=== PATIENT | female | born 1990 | race Caucasian/White ===

== ENCOUNTER 2020-04-05 07:05 | Outpatient (NON) | payer OTHER, SELFPAY ==
[2020-04-05 18:29] LABS: SARS-CoV-2 RNA PCR Negative
== END 2020-04-05 07:06 ==
PROVIDERS: PCP Physician Assistant; Visit Provider Physician Assistant
DX: Z20.828 Contact with and (suspected) exposure to other viral communicable diseases (principal); R11.0 Nausea
CPT/HCPCS: 87635; C9803; U0003

== ENCOUNTER 2021-10-11 14:28 | Outpatient (CLI) | payer OTHER, SELFPAY ==
--- NOTE | ~2021-10-11 | XR_ITS ---
XR abdomen/kub 1V 10/11/2021 14:44 INDICATION: Right flank pain TECHNIQUE: KUB COMPARISON: No prior studies for comparison. FINDINGS: Bowel gas pattern is normal. There is no evidence of free air, mass, organomegaly, ascites or obstruction. There is a possible right renal stone at the L2 level, obscured by bowel content.. The bones appear intact. There are pelvic phleboliths. IMPRESSION: 1: Possible right nephrolithiasis although evaluation limited by overlying bowel content. Reviewed, dictated and finalized at location B. IMPRESSION: 1: Possible right nephrolithiasis although evaluation limited by overlying kevan l content.
== END 2021-10-11 14:29 | disposition home or self-care (01) ==
LOC: ANHIMG 14:32
PROVIDERS: PCP Physician Assistant; Visit Provider Physician Assistant
DX: R10.9 Unspecified abdominal pain (principal)
CPT/HCPCS: 74018

== ENCOUNTER 2021-10-25 13:01 | Outpatient (CLI) | payer OTHER, SELFPAY ==
--- NOTE | ~2021-10-25 | CT_ITS ---
EXAMINATION: CT abdomen pelvis wo con DATE: 10/25/2021 13:25 INDICATION: Left flank pain TECHNIQUE: Computed tomography (CT) of the abdomen and pelvis was performed without intravenous contr ast. The dose-length product (DLP) was 227.24 mGy-cm. Automated exposure control and iterative recons truction technique were employed. COMPARISON: 12/24/2018 FINDINGS: The lung bases are clear. The heart size is normal. The liver, spleen, pancreas, and adrena l glands are normal. The gallbladder is surgically absent. The kidneys are unremarkable. No stones ar e identified in the kidneys, ureters, or bladder. There is no hydronephrosis or hydroureter. No patho logically enlarged abdominal or pelvic lymph nodes are identified. There is no free intraperitoneal g as or evidence of bowel obstruction. There is a 3.2 cm cyst of the left adnexa. A large volume of col onic stool is present. IMPRESSION: 1. No CT correlate for the patient's symptoms. No urolithiasis identified. Reviewed, dictated and finalized at location F.
== END 2021-10-25 13:02 | disposition home or self-care (01) ==
PROVIDERS: PCP Physician Assistant; Visit Provider Physician Assistant
DX: N20.0 Calculus of kidney (principal)
CPT/HCPCS: 74176

== ENCOUNTER 2023-06-10 00:26 | Day surgery (SDC) | payer OTHER, SELFPAY ==
[2023-05-12 15:06] VITALS: BMI 25.2
--- NOTE | 2023-06-08 12:05 | SUR.PREOP ---
Patient called regarding upcoming procedure. Reviewed preop instructions, appointment times, and procedure prep.
--- NOTE | 2023-06-09 16:21 | PM.HPGS ---
History of Present Illness History of Present Illness Consent: Risks, benefits, and alternatives have been discussed and questions answered. Patient agrees to proceed with procedure. Chief complaint: abdominal pain, other fecal abnormalities Narrative: Flakita Bridges is a 32 year old female Referred for investigation of postprandial abdominal pain in lower abdomen. Along with a she has had a change in bowel habits, looser stools. Review of Systems Review of Systems: All systems reviewed & are unremarkable except as noted in HPI and below PMFSH Past Medical History Medical History Abdominal pain Anxiety Encounter for IUD insertion 06/22/14 Mirena insertion Encounter for IUD removal 01/15/17 Mirena removal via hscope in OR Insomnia Loose stools Vaginal delivery 09/23/08 Damon --no complications 11/19/13 Emigdio --no complications 11/07/18 Jose Antonio --no complications Vitamin D deficiency Surgical History Surgical History History of bilateral salpingectomy (12/22/18) undesired fertility History of cholecystectomy (03/09/18) History of hysteroscopy (01/15/17) hscope IUD removal Family History Family History Grandparent Diabetes mellitus maternal grandmother Hypertension maternal grandmother Breast cancer paternal grandmother Father Pulmonary embolism Other Breast cancer 2 paternal Aunts Social History Social History Smoking status: Never smoker Tobacco type: cigarettes Second hand tobacco smoke exposure: No Smoking end date: 05/04/09 Alcohol intake: former Alcohol use details: 1-2 a month Substance use: never Substance use type: does not use Living arrangements: with family Additional living arrangements comments: Occupation/Education: occupation 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 boulardii)) fluoxetine 20 mg capsule 20 mg PO DAILY 04/29/23 05/12/23 History Allergies Allergy/AdvReac Type Severity Reaction Status Date / Time prochlorperazine Allergy Severe TONIC JAW Verified 06/10/23 08:22 hydrocodone AdvReac Severe ITCHY Verified 06/10/23 08:22 Exam Const: General: alert Orientation/consciousness: patient oriented x3 Resp: Auscultation: clear to auscultation bilaterally Cardio: Rhythm: regular rhythm GI: GI Palp: Yes Soft to palpation and No Tenderness to palpation present (GI) Neuro: General: patient oriented x3 Assessment and Plan Assessment and plan (1) Loose stools: Code(s): R19.5 - Other fecal abnormalities Status: Acute Assessment and Plan: Colonoscopy with possible biopsy or polypectomy or cautery or injection of substances. (2) Abdominal pain: Code(s): R10.9 - Unspecified abdominal pain Status: Acute
[2023-06-10 08:23] VITALS: BP 99/73; PULSE 83; RESP 18; TEMP 36.6; O2SAT 100
[2023-06-10] MEDS: LACTATED RINGERS 1,000 ML 150 ML IV CONT (08:35)
[2023-06-10 09:56] VITALS: BP 108/78; PULSE 79; RESP 18; O2SAT 100
[2023-06-10 10:06] VITALS: BP 97/85; PULSE 75; RESP 18; O2SAT 100
[2023-06-10 10:16] VITALS: BP 93/58; PULSE 65; RESP 18; O2SAT 100
--- NOTE | 2023-06-10 14:10 | SUR.PREOP ---
Pt history of bilateral salpingectomy. No urine test needed.
--- NOTE | 2023-06-26 15:09 | WPDANESEPPF ---
Anes - Initial Pre Proc Eval Procedure: Operation Date: 06/10/23 09:30 Proposed Procedures p Colonoscopy - Alonso Gaston MD Date/Time: 06/26/23 15:09 Surgeon: Alonso Gaston MD Pre Op Diagnosis: abdominal pain, other fecal abnormalities Patient Data Age: 33 Gender: F Height: 1.68 m Weight: 68 kg Last Vital Signs Temp 98 F 06/10/23 08:23 Pulse 65 06/10/23 10:16 Resp 18 06/10/23 10:16 BP 93/58 L 06/10/23 10:16 Pulse Ox 100 06/10/23 10:16 O2 Del Method Room Air 06/10/23 10:16 Allergies Allergy/AdvReac Type Severity Reaction Status Date / Time prochlorperazine Allergy Severe TONIC JAW Verified 06/10/23 08:22 hydrocodone AdvReac Severe ITCHY Verified 06/10/23 08:22 Home Medications Medication Instructions Recorded Confirmed Type Saccharomyces boulardii 250 mg 250 mg PO BID 03/11/23 05/12/23 History capsule (Daily Probiotic (S. boulardii)) fluoxetine 20 mg capsule 20 mg PO DAILY 04/29/23 05/12/23 History dicyclomine 10 mg capsule 10 mg PO TID #90 caps 06/10/23 Rx Patient hx anesthesia problems: none Family hx anesthesia problems: none Results Review: All pre-operative results and documents have been reviewed as part of the pre-operative evaluation. [facility] Past Medical History Medical History Abdominal pain Anxiety Encounter for IUD insertion 06/22/14 Mirena insertion Encounter for IUD removal 01/15/17 Mirena removal via hscope in OR Insomnia Loose stools Vaginal delivery 09/23/08 Damon --no complications 11/19/13 Emigdio --no complications 11/07/18 Jose Antonio --no complications Vitamin D deficiency Surgical History Surgical History History of bilateral salpingectomy (12/22/18) undesired fertility History of cholecystectomy (03/09/18) History of hysteroscopy (01/15/17) hscope IUD removal Family History Family History Grandparent Diabetes mellitus maternal grandmother Hypertension maternal grandmother Breast cancer paternal grandmother Father Pulmonary embolism Other Breast cancer 2 paternal Aunts Social History Social History Smoking status: Never smoker Tobacco type: cigarettes Second hand tobacco smoke exposure: No Smoking end date: 05/04/09 Alcohol intake: former Alcohol use details: 1-2 a month Substance use: never Substance use type: does not use Living arrangements: with family Additional living arrangements comments: Occupation/Education: occupation 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 Gender identity (if verbalized by the patient): Female Sexual Orientation (if Verbalized by the Patient): Straight or Heterosexual Spiritual care concerns: No Anes - Eval Final PreProcedure Day of Procedure 06/26/23 15:09 Patient weight: normal Heart: regular rate and rhythm Lungs: clear to auscultation Airway: Mallampati scale class II Neurological: alert and oriented Last oral intake: >/= 8 hours ASA classification: II Emergent: no Anesthetic plan: proceed Anesthesia type and monitoring: general GIVS and standard monitoring Results Review: All pre-operative results and documents have been reviewed as part of the pre-operative evaluation. Informed Consent: The patient's anesthetic plan and its attendant risks and benefits were discussed with the patient/family/POA. Questions were solicited and answers provided to the satisfaction of the patient/family/POA.
== END 2023-06-10 10:20 | disposition home or self-care (01) ==
PROVIDERS: PCP Physician Assistant; Visit Provider Internal Medicine Gastroenterology
PROC: 0DJD8ZZ Inspection of Lower Intestinal Tract, Via Natural or Artificial Opening Endoscopic (ICD-10-PCS; CPT 45378; principal; 2023-06-10 09:30)
DX: R19.7 Diarrhea, unspecified (principal); K59.00 Constipation, unspecified; K64.8 Other hemorrhoids; Z87.891 Personal history of nicotine dependence; F41.9 Anxiety disorder, unspecified
CPT/HCPCS: 45380; 88305; J2001; J2704; J7120

== ENCOUNTER 2024-06-10 10:36 | Outpatient (CLI) | payer OTHER, SELFPAY ==
--- NOTE | ~2024-06-10 | US_ITS ---
EXAMINATION: US right upper quadrant DATE: 06/10/2024 11:18 INDICATION: Elevated levels of liver transaminase TECHNIQUE: Multiple grayscale and Doppler ultrasound images of the abdomen were obtained. COMPARISON: CT dated 10/25/2021 FINDINGS: The pancreatic head and body are normal in appearance. The pancreatic tail is not visualized. The ab dominal aorta and inferior vena cava are normal. Liver has normal echogenicity and contour, with a sm ooth surface. No liver lesion identified. No intrahepatic biliary duct dilation suspected. Portal franny ous flow was seen in the hepatopetal, normal direction and has normal Doppler waveform. Gallbladder i s not visualized consistent with reported history of prior cholecystectomy. The common bile duct handy ures 4 mm diameter which is normal. Visualized portions of the right kidney demonstrates normal conto ur and echogenicity with no hydronephrosis. IMPRESSION: 1. Status post cholecystectomy. Otherwise normal right upper quadrant ultrasound with no intra or ext rahepatic biliary ductal dilation. Reviewed, dictated and finalized at location B. SCAPING SPECIALIST IMPRESSION: 1. Status post cholecystectomy. Otherwise normal right upper quadrant ultrasoun d with no intra or extrahepatic biliary ductal dilation.
--- OUTSIDE RECORDS SUMMARY | 2024-06-10 11:20 | XMS_ITS | Referral Summary ---
Author Organization [facility] Address [address] [place] [address] Care Team Providers Care Highway Design Engineer Name Role Phone Mari Shields MD Primary Care Provider [phone] Source Comments [facility],non-owned Affiliates and Associated Physician Practices is amultiple site organization consisting of ambulatory clinics and hospital sitesin [place], [place], [place] and [place]. This disclosure is being madepursuant to the Care Everywhere program and may not contain all information available regarding this patient. Last updated 18.[facility] Allergies No known active allergies Medications * Be aware that medications may not be up to date on this document. Alwaysverify current medications with the patient. Medication Sig Dispensed Refills Start Date End Date Status Cholecalciferol (VITAMIN D3) 86914 UNITS TABS Active Social History Tobacco Use Types Packs/Day Years Used Date Smoking Tobacco: Never Assessed Sex and Gender Information Value Date Recorded Sex Assigned at Not on file Gender Identity Not on file Sexual Orientation Not on file Last Filed Vital Signs Vital Sign Reading Time Taken Comments Blood Pressure 108/78 06/26/2016 10:36 AM BANKRUPTCY PROCESSOR Pulse 84 06/26/2016 10:36 AM BANKRUPTCY PROCESSOR Temperature 36.1 C (96.9 F) 06/26/2016 10:36 AM BANKRUPTCY PROCESSOR Respiratory Rate - - Oxygen Saturation - - Inhaled Oxygen Concentration - - Weight 79.7 kg (175 lb 9.6 oz) 06/26/2016 10:36 AM BANKRUPTCY PROCESSOR Height 167.6 cm (5' 6 ) 06/26/2016 10:36 AM BANKRUPTCY PROCESSOR Body Mass Index 28.34 06/26/2016 10:36 AM BANKRUPTCY PROCESSOR Plan of Treatment Not on file Administered Medications Care Teams Highway Design Engineer Relationship Specialty Start Date End Date Mari Shields MD [address] [address] PCP - General 12/28/18
--- OUTSIDE RECORDS SUMMARY | 2024-06-10 11:20 | XMS_ITS | Clinical Summary ---
Author Organization [facility] Address [address] [place] [address] Care Team Providers Care Optical Element Coater Name Role Phone Mari Shields MD Primary Care Provider [phone] Source Comments [facility] [employer],non-owned Affiliates and Associated Physician Practices is amultiple site organization consisting of ambulatory clinics and hospital sitesin [place], [place], [place] and [place]. This disclosure is being madepursuant to the Care Everywhere program and may not contain all information available regarding this patient. Last updated 18.[facility] [employer] Allergies No known active allergies Medications * Be aware that medications may not be up to date on this document. Alwaysverify current medications with the patient. Medication Sig Dispensed Refills Start Date End Date Status Cholecalciferol (VITAMIN D3) 52628 UNITS TABS Active Social History Tobacco Use Types Packs/Day Years Used Date Smoking Tobacco: Never Assessed Sex and Gender Information Value Date Recorded Sex Assigned at Not on file Gender Identity Not on file Sexual Orientation Not on file Last Filed Vital Signs Vital Sign Reading Time Taken Comments Blood Pressure 108/78 06/26/2016 10:36 AM CHRISTMAS TREE GROWER Pulse 84 06/26/2016 10:36 AM CHRISTMAS TREE GROWER Temperature 36.1 C (96.9 F) 06/26/2016 10:36 AM CHRISTMAS TREE GROWER Respiratory Rate - - Oxygen Saturation - - Inhaled Oxygen Concentration - - Weight 79.7 kg (175 lb 9.6 oz) 06/26/2016 10:36 AM CHRISTMAS TREE GROWER Height 167.6 cm (5' 6 ) 06/26/2016 10:36 AM CHRISTMAS TREE GROWER Body Mass Index 28.34 06/26/2016 10:36 AM CHRISTMAS TREE GROWER Plan of Treatment Health Maintenance Due Date Last Done Comments PAP SMEAR 1989 HIV SCREENING 2004 HEPATITIS C SCREENING 06/07/2007 DTAP/TDAP/TD VACCINES (1 - Tdap) 2008 HEPATITIS B VACCINE (1 of 3 - 19+ 3-dose series) 2008 COVID-19 VACCINE (1 - 2023-2 5 season) 2024 INFLUENZA VACCINE (#1) 2024 DEPRESSION SCREENING 05/04/2024 ZOSTER VACCINE (1 of 2) 2039 HIB VACCINE Aged Out No longer eligi ble based on patient's age to complete this topic HPV VACCINE Aged Out No longer eligi ble based on patient's age to complete this topic MENINGOCOCCAL (Group B) VACCINE Aged Out No longer eligible based on patient's age to complete this topic MENINGOCOCCAL VACCINE Aged Out No [place] yeyo eligible based on patient's age to complete this topic PNEUMOCOCCAL VACCINE Aged Out No long er eligible based on patient's age to complete this topic Care Teams Optical Element Coater Relationship Specialty Start Date End Date Mari Shields MD [address] [address] PCP - General 12/28/18
--- OUTSIDE RECORDS SUMMARY | 2024-06-10 11:21 | XMS_ITS | Patient Health Summary ---
Author Organization [facility] Address [address] [place] [address] Care Team Providers Care Prenatal Teacher Name Role Phone Mari Shields MD Primary Care Provider [phone] Note from [facility],non-owned Affiliates and Associated Physician Practices is amultiple site organization consisting of ambulatory clinics and hospital sitesin [place], [place], [place] and [place]. This disclosure is being madepursuant to the Care Everywhere program and may not contain all information available regarding this patient. Last updated 18.[facility] Allergies No known active allergies Medications * Be aware that medications may not be up to date on this document. Alwaysverify current medications with the patient. * Cholecalciferol (VITAMIN D3) 88714 UNITS TABS Social History Tobacco Use Types Packs/Day Years Used Date Smoking Tobacco: Never Assessed Sex and Gender Information Value Date Recorded Sex Assigned at Not on file Gender Identity Not on file Sexual Orientation Not on file Last Filed Vital Signs Vital Sign Reading Time Taken Comments Blood Pressure 108/78 06/26/2016 10:36 AM RAG BOILER Pulse 84 06/26/2016 10:36 AM RAG BOILER Temperature 36.1 C (96.9 F) 06/26/2016 10:36 AM RAG BOILER Respiratory Rate - - Oxygen Saturation - - Inhaled Oxygen Concentration - - Weight 79.7 kg (175 lb 9.6 oz) 06/26/2016 10:36 AM RAG BOILER Height 167.6 cm (5' 6 ) 06/26/2016 10:36 AM RAG BOILER Body Mass Index 28.34 06/26/2016 10:36 AM RAG BOILER Procedures * XR KNEE RIGHT 3VW(Performed 06/26/2016) Performed for Acute pain of right knee Results * XR KNEE 3 VW RIGHT [id number] (06/26/2016 10:56 AM RAG BOILER) Anatomical Region Laterality Modality Lower Extremity Radiographic Loraine ging 06/26/2016 10:5 4 AM RAG BOILER Narrative 06/26/2016 1:47 PM RAG BOILER RIGHT KNEE 06/26/2016 CLINICAL HISTORY: Pain. FINDINGS AND IMPRESSION: 1. Mild joint space narrowing of medial compartment on standing view. 2. Patellofemoral compartment appears unremarkable. 3. No acute fracture, dislocation or destructive process. 4. No significant soft tissue swelling. 5. No osseous erosive changes. Procedure Note Mike Pedraza MD - 06/26/2016 RIGHT KNEE 06/26/2016 CLINICAL HISTORY: Pain. FINDINGS AND IMPRESSION: 1. Mild joint space narrowing of medial compartment on standing view. 2. Patellofemoral compartment appears unremarkable. 3. No acute fracture, dislocation or destructive process. 4. No significant soft tissue swelling. 5. No osseous erosive changes. Dave Ruelas MD DIAGNOSTIC IMAGING [facility] Care Teams Prenatal Teacher Relationship Specialty Start Date End Date Mari Shields MD [address] [place] [id number] PCP - General 12/28/18
--- OUTSIDE RECORDS SUMMARY | 2024-06-10 11:21 | XMS_ITS | Data Portability ---
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 Plan of Treatment Reminders Order Date Submit Date Provider Last Modified By Organization Details Last Modified Time Details Appointments None recorded. Lab TSH + free T4, serum 2022 023 [employer] [facility], [address], [place], [address], 3 07:43:28 lipid panel, serum 2022 023 [employer] [facility], [address], [address], [place], [address], 3 07:43:30 CBC w/ auto diff 2022 023 [employer] [facility], [address], [place], [address], 3 07:43:32 CMP, serum or plasma 2022 023 [employer] [facility], [address], [place], [address], 3 07:43:30 HbA1c (hemoglobin A1c), blood 2022 023 [employer] [facility], [address], [place], [address], 3 07:43:31 Referral None recorded. Procedures None recorded. Surgeries None recorded. Imaging None recorded. Medication Orders prednisone 50 mg tablet 2022 023 [email or web address] 4 [facility] #[id number], [address] [facility] [address] [facility], [place], [place], [id number], 3 14:36:26 codeine 10 mg-guaifene sin 100 mg/5 mL oral liquid 2022 023 [email or web address] [id number] 4 [facility] #[id number], [address] [facility] [address] [facility], [place], [place], [id number], 3 14:36:23 Wegovy 0.25 mg/0.5 mL subcutaneou s pen injector 2022 023 [email or web address] [facility] #[id number], [address] [facility] [address] [facility], [place], [place], [id number], 3 11:13:37 Patient TargetsNo targets recorded. Patient InstructionsNo instructions recorded. Reason for Referral None Reported. Results Created Date Observation Date Name Description Value Unit Range Abnormal Flag Note LastModifiedBy Organization Detail LastModifiedTime 09/28/19 22 10/02/2021 CULTU RE, URINE , ROUTI NE culture, urine, routine abnormal CULTU RE, URINE , ROUTI NE Micro Numbe r: [id number] Test Statu s: Final Speci men Sourc e: Urine Speci men Quali ty: Adequ ate Resul t: Great er than 100,0 00 CFU/m L of Group B Strep tococ cus isola malaika Beta- hemol ytic strep tococ ci are predi ctabl y susce ptibl e to Penic illin and other beta- lacta ms. Susce ptibi lity testi ng not routi angi perfo rmed. Pleas e conta ct the labor atory withi n 3 days if susce ptibi lity testi ng is max ed. Comme nt: Eryth romyc in and clind amyci n are not recom esmer d for treat ment of urina ry tract infec tions , but clind amyci n may be usefu l for treat ment in penic illin aller gic patie nts for recto vagin al colon izati on or for intra partu m proph ylaxi s if indic ated. Any amoun t of group B Strep tococ cus in urine speci mens obtai marbin from pregn ant femal es is a marke r of genit al tract colon izati on. If this patie nt is pregn ant, pleas e refer to ACOG guide lines for appro priat e scree [place] and manag ement of pregn ant women . Not Available [address] [address] [place], [address], 10/02/2021 17:21:59 09/28/19 22 10/02/2021 REFLE XIVE URINE CULTU RE reflexive urine culture CULTU RE INDIC ATED - RESUL TS TO FOLLO W Not Available [address] [place], [address], 10/02/2021 17:21:59 09/28/19 22 10/02/2021 URINA LYSIS , COMPL ETE W/REF KARL TO CULTU RE color yellow yellow normal Not Available [address] [place], [address], 10/02/2021 17:21:58 09/28/19 22 10/02/2021 URINA LYSIS , COMPL ETE W/REF KARL TO CULTU RE appearance clear clear normal Not Available [address], [address], 10/02/2021 17:21:58 09/28/19 22 10/02/2021 URINA LYSIS , COMPL ETE W/REF KARL TO CULTU RE specific gravity 1.025 1.001- 1.035 normal Not Available [address], [address], 10/02/2021 17:21:58 09/28/19 22 10/02/2021 URINA LYSIS , COMPL ETE W/REF KARL TO CULTU RE pH < or = 5.0 5.0-8. 0 normal Not Available [address] [place], [address], 10/02/2021 17:21:58 09/28/19 22 10/02/2021 URINA LYSIS , COMPL ETE W/REF KARL TO CULTU RE glucose negati ve negati ve normal Not Available [address], [address], 10/02/2021 17:21:58 09/28/19 22 10/02/2021 URINA LYSIS , COMPL ETE W/REF KARL TO CULTU RE bilirubin negati ve negati ve normal Not Available [address], [address], 10/02/2021 17:21:58 09/28/19 22 10/02/2021 URINA LYSIS , COMPL ETE W/REF KARL TO CULTU RE ketones negati ve negati ve normal Not Available [address] [place], [address], 10/02/2021 17:21:58 09/28/19 22 10/02/2021 URINA LYSIS , COMPL ETE W/REF KARL TO CULTU RE occult blood negati ve negati ve normal Not Available [facility] [address], [address], 10/02/2021 17:21:58 09/28/19 22 10/02/2021 URINA LYSIS , COMPL ETE W/REF KARL TO CULTU RE protein negati ve negati ve normal Not Available [facility] [address], [address], 10/02/2021 17:21:58 09/28/19 22 10/02/2021 URINA LYSIS , COMPL ETE W/REF KARL TO CULTU RE nitrite negati ve negati ve normal Not Available [facility] [address], [address], 10/02/2021 17:21:58 09/28/19 22 10/02/2021 URINA LYSIS , COMPL ETE W/REF KARL TO CULTU RE leukocyte esterase trace negati ve abnormal Not Available [address], [address], 10/02/2021 17:21:58 09/28/19 22 10/02/2021 URINA LYSIS , COMPL ETE W/REF KARL TO CULTU RE WBC 0-5 /hpf < or = 5 normal Not Available [address], [address], 10/02/2021 17:21:58 09/28/19 22 10/02/2021 URINA LYSIS , COMPL ETE W/REF KARL TO CULTU RE RBC none seen /hpf < or = 2 normal Not Available [address], [address], 10/02/2021 17:21:58 09/28/19 22 10/02/2021 URINA LYSIS , COMPL ETE W/REF KARL TO CULTU RE squamous epithelial cells 6-10 /hpf < or = 5 abnormal Not Available [address], [address], 10/02/2021 17:21:58 09/28/19 22 10/02/2021 URINA LYSIS , COMPL ETE W/REF KARL TO CULTU RE bacteria none seen /hpf none seen normal Not Available [address], [address], 10/02/2021 17:21:58 09/28/19 22 10/02/2021 URINA LYSIS , COMPL ETE W/REF KARL TO CULTU RE hyaline cast none seen /lpf none seen normal Not Available [address], [address], 10/02/2021 17:21:58 09/28/19 22 10/02/2021 CBC (INCL UDES DIFF/ PLT) white blood cell count 7.7 thous and/u L 3.8-10 .8 normal Not Available [address], [address], 10/02/2021 17:21:57 09/28/19 22 10/02/2021 CBC (INCL UDES DIFF/ PLT) red blood cell count 4.49 liborio on/uL 3.80-5 .10 normal Not Available [address], [address], 10/02/2021 17:21:57 09/28/19 22 10/02/2021 CBC (INCL UDES DIFF/ PLT) hemoglobin 14.1 g/dL 11.7-1 5.5 normal Not Available [address], [address], 10/02/2021 17:21:57 09/28/19 22 10/02/2021 CBC (INCL UDES DIFF/ PLT) hematocrit 42.0 % 35.0-4 5.0 normal Not Available [address], [address], 10/02/2021 17:21:57 09/28/19 22 10/02/2021 CBC (INCL UDES DIFF/ PLT) MCV 93.5 fL 80.0-1 00.0 normal Not Available [address], [address], 10/02/2021 17:21:57 09/28/19 22 10/02/2021 CBC (INCL UDES DIFF/ PLT) MCH 31.4 pg 27.0-3 3.0 normal Not Available [address], [address], 10/02/2021 17:21:57 09/28/19 22 10/02/2021 CBC (INCL UDES DIFF/ PLT) MCHC 33.6 g/dL 32.0-3 6.0 normal Not Available [address], [address], 10/02/2021 17:21:57 09/28/19 22 10/02/2021 CBC (INCL UDES DIFF/ PLT) RDW 12.3 % 11.0-1 5.0 normal Not Available [address], [address], 10/02/2021 17:21:57 09/28/19 22 10/02/2021 CBC (INCL UDES DIFF/ PLT) platelet count 234 thous and/u L 140-40 0 normal Not Available [address], [address], 10/02/2021 17:21:57 09/28/19 22 10/02/2021 CBC (INCL UDES DIFF/ PLT) MPV 10.8 fL 7.5-12 .5 normal Not Available [address], [address], 10/02/2021 17:21:57 09/28/19 22 10/02/2021 CBC (INCL UDES DIFF/ PLT) absolute neutrophils 5121 cells /uL 1500-7 800 normal Not Available [address], [address], 10/02/2021 17:21:57 09/28/19 22 10/02/2021 CBC (INCL UDES DIFF/ PLT) absolute lymphocytes 2017 cells /uL 850-39 00 normal Not Available [address], [address], 10/02/2021 17:21:57 09/28/19 22 10/02/2021 CBC (INCL UDES DIFF/ PLT) absolute monocytes 439 cells /uL 200-95 0 normal Not Available [address], [address], 10/02/2021 17:21:57 09/28/19 22 10/02/2021 CBC (INCL UDES DIFF/ PLT) absolute eosinophils 69 cells /uL 15-500 normal Not Available [address], [address], 10/02/2021 17:21:57 09/28/19 22 10/02/2021 CBC (INCL UDES DIFF/ PLT) absolute basophils 54 cells /uL 0-200 normal Not Available [address], [address], 10/02/2021 17:21:57 09/28/19 22 10/02/2021 CBC (INCL UDES DIFF/ PLT) neutrophils 66.5 % normal Not Available [address], [address], 10/02/2021 17:21:57 09/28/19 22 10/02/2021 CBC (INCL UDES DIFF/ PLT) lymphocytes 26.2 % normal Not Available [address], [address], 10/02/2021 17:21:57 09/28/19 22 10/02/2021 CBC (INCL UDES DIFF/ PLT) monocytes 5.7 % normal Not Available [address], [address], 10/02/2021 17:21:57 09/28/19 22 10/02/2021 CBC (INCL UDES DIFF/ PLT) eosinophils 0.9 % normal Not Available [facility] [address], [address], 10/02/2021 17:21:57 09/28/19 22 10/02/2021 CBC (INCL UDES DIFF/ PLT) basophils 0.7 % normal Not Available [facility] [address], [address], 10/02/2021 17:21:57 09/28/19 22 10/02/2021 HEMOG LOBIN A1C hemoglobin A1C 4.7 %_of_ total _HGB <5.7 normal For the purpo se of mine briggs for the prese nce of diabe lamin: <5.7% Consi stent with the absen ce of diabe lamin 5.7-6 .4% Consi stent with incre ased risk for diabe lamin (pred iabet es) > or =6.5% Consi stent with diabe lamin This assay resul t is consi stent with a decre ased risk of diabe lamin. Curre ntly, no conse nsus exist s gen oviedo use of hemog lobin A1c for diagn osis of diabe lamin in child charli. Accor ding to Ameri can Diabe lamin Assoc iatio n (ADA) guide lines , hemog lobin A1c <7.0% repre sents optim al contr ol in non-p regna nt diabe tic patie nts. Diffe rent metri cs may apply to speci fic patie nt popul ation s. Stand ards of Medic al Care in Diabe lamin(A DA). Not Available [address] [address] [place], [address], 10/02/2021 17:21:57 09/28/19 22 10/02/2021 COMPR EHENS HALI METAB OLIC PANEL glucose 81 mg/dL 65-99 normal Fasti ng refer ence inter bernice Not Available [facility] [address] [address] [place], [address], 10/02/2021 17:21:56 09/28/19 22 10/02/2021 COMPR EHENS HALI METAB OLIC PANEL urea nitrogen (BUN) 22 mg/dL 7-25 normal Not Available [facility] [address] [address] [place], [address], 10/02/2021 17:21:56 09/28/19 22 10/02/2021 COMPR EHENS HALI METAB OLIC PANEL creatinine 0.69 mg/dL 0.50-1 .10 normal Not Available [facility] [address] [address] [place], [address], 10/02/2021 17:21:56 09/28/19 22 10/02/2021 COMPR EHENS HALI METAB OLIC PANEL eGFR non-afr. kosovan 115 mL/mi n/1.7 3m2 > or = 60 normal Not Available [address], [address], 10/02/2021 17:21:56 09/28/19 22 10/02/2021 COMPR EHENS HALI METAB OLIC PANEL eGFR 134 mL/mi n/1.7 3m2 > or = 60 normal Not Available [address], [address], 10/02/2021 17:21:56 09/28/19 22 10/02/2021 COMPR EHENS HALI METAB OLIC PANEL BUN/creatini ne ratio not applic able (calc ) 6-22 Not Available [address], [address], 10/02/2021 17:21:56 09/28/19 22 10/02/2021 COMPR EHENS HALI METAB OLIC PANEL sodium 139 mmol/ L 135-14 6 normal Not Available [address], [address], 10/02/2021 17:21:56 09/28/19 22 10/02/2021 COMPR EHENS HALI METAB OLIC PANEL potassium 4.4 mmol/ L 3.5-5. 3 normal Not Available [address], [address], 10/02/2021 17:21:56 09/28/19 22 10/02/2021 COMPR EHENS HALI METAB OLIC PANEL chloride 107 mmol/ L 98-110 normal Not Available [address], [address], 10/02/2021 17:21:56 09/28/19 22 10/02/2021 COMPR EHENS HALI METAB OLIC PANEL carbon dioxide 25 mmol/ L 20-32 normal Not Available [address], [address], 10/02/2021 17:21:56 09/28/19 22 10/02/2021 COMPR EHENS HALI METAB OLIC PANEL calcium 9.6 mg/dL 8.6-10 .2 normal Not Available [address], [address], 10/02/2021 17:21:56 09/28/19 22 10/02/2021 COMPR EHENS HALI METAB OLIC PANEL protein, total 6.7 g/dL 6.1-8. 1 normal Not Available [address], [address], 10/02/2021 17:21:56 09/28/19 22 10/02/2021 COMPR EHENS HALI METAB OLIC PANEL albumin 4.4 g/dL 3.6-5. 1 normal Not Available [address], [address], 10/02/2021 17:21:56 09/28/19 22 10/02/2021 COMPR EHENS HALI METAB OLIC PANEL globulin 2.3 g/dL_ (calc ) 1.9-3. 7 normal Not Available [address], [address], 10/02/2021 17:21:56 09/28/19 22 10/02/2021 COMPR EHENS HALI METAB OLIC PANEL albumin/glob ulin ratio 1.9 (calc ) 1.0-2. 5 normal Not Available [address], [address], 10/02/2021 17:21:56 09/28/19 22 10/02/2021 COMPR EHENS HALI METAB OLIC PANEL bilirubin, total 0.7 mg/dL 0.2-1. 2 normal Not Available [facility] [address] [address], [place], [address], 10/02/2021 17:21:56 09/28/19 22 10/02/2021 COMPR EHENS HALI METAB OLIC PANEL alkaline phosphatase 56 U/L 31-125 normal Not Available [address], [address], 10/02/2021 17:21:56 09/28/19 22 10/02/2021 COMPR EHENS HALI METAB OLIC PANEL AST 20 U/L 10-30 normal Not Available [address], [address], 10/02/2021 17:21:56 09/28/19 22 10/02/2021 COMPR EHENS HALI METAB OLIC PANEL ALT 21 U/L 6-29 normal Not Available [address], [address], 10/02/2021 17:21:56 09/28/19 22 10/02/2021 LIPID PANEL WITH RATIO S cholesterol, total 146 mg/dL <200 normal Not Available [address], [address], 10/02/2021 17:21:56 09/28/19 22 10/02/2021 LIPID PANEL WITH RATIO S HDL cholesterol 60 mg/dL > or = 50 normal Not Available [address], [address], 10/02/2021 17:21:56 09/28/19 22 10/02/2021 LIPID PANEL WITH RATIO S triglyceride s 84 mg/dL <150 normal Not Available [address], [address], 10/02/2021 17:21:56 09/28/19 22 10/02/2021 LIPID PANEL WITH RATIO S LDL-choleste rol 70 mg/dL _(erika c) normal Refer ence range : <100 Max able range <100 mg/dL for prima ry preve ntion ; <70 mg/dL for patie nts with CHD or diabe tic patie nts with > or = 2 CHD risk facto rs. LDL-C is now calcu lated using the Kathi n-Hop kins mariajose diggs, which is a valid ated novel metho d provi ding tho r accur acy than the Fried nas equat ion in the estim ation of LDL-C . Kathi diggs SS et al. ARAM. 2013; 310(1 9): 2061- 206 (http ://ed ucati on.BESOS. EditGrid/f aq/FA Q164) Not Available [facility] [address], [address], 10/02/2021 17:21:56 09/28/19 22 10/02/2021 LIPID PANEL WITH RATIO S chol/HDLC ratio 2.4 (calc ) <5.0 normal Not Available [facility] [address], [address], 10/02/2021 17:21:56 09/28/19 22 10/02/2021 LIPID PANEL WITH RATIO S LDL/HDL ratio 1.2 (calc ) Below avera ge Risk: <2.34 Bonaparte ge Risk: 2.35- 4.12 Moder ate Risk: 4.13- 5.56 High Risk: >5.57 Not Available [facility] [address], [address], 10/02/2021 17:21:56 09/28/19 22 10/02/2021 LIPID PANEL WITH RATIO S non HDL cholesterol 86 mg/dL _(erika c) <130 normal For patie nts with diabe lamin plus 1 major ASCVD risk facto r, treat ing to a non-H DL-C goal of <100 mg/dL (LDL- C of <70 mg/dL ) is raquel sandersono n. Not Available [facility] [address] [place] [address], [address], 10/02/2021 17:21:56 09/28/19 22 10/02/2021 TSH+F REE T4 TSH 1.04 mIU/L normal Refer ence Range > or = 20 Years 0.40- 4.50 Pregn alexi Range s First trime ster 0.26- 2.66 Secon d trime ster 0.55- 2.73 Third trime ster 0.43- 2.91 Not Available [facility] [address] [address] [place], [address], 10/02/2021 17:21:55 09/28/19 22 10/02/2021 TSH+F REE T4 T4, free 1.0 NG/dL 0.8-1. 8 normal Not Available [address] [address] [place], [address], 10/02/2021 17:21:55 09/28/19 22 10/02/2021 INTER PRETA TION interpretati on Speci fic Level of Aller gen IGE Class kU/L Speci fic IGE Antib stephanie ----- ----- ---- ----- ----- ----- ---- 0 <0.10 Absen t/Und etect able 0/1 0.10- 0.34 Very Low Level 1 0.35- 0.69 Low Level 2 0.70- 3.49 Moder ate Level 3 3.50- 17.4 High Level 4 17.5- 49.9 Very High Level 5 50-10 0 Very High Level 6 >100 Very High Level The clini erika relev ance of aller gen resul ts of 0.10- 0.34 kU/L are undet ermin ed and inten ded for speci alist use. Aller gens denot ed with a inclu de resul ts using one or more ramona te speci fic reage nts. In those cases , the test was devel oped and its ramona tical perfo rmanc e spencer cteri stics have been deter mined by [facility]. It has not been clear ed or appro kymberly by the U.S. Food and Drug Admin istra tion. This assay has been valid ated pursu ant to the [place] regul ation s and is used for clini erika purpo ses. Not Available [address] [address] [place], [address], 10/02/2021 17:21:54 09/28/19 22 10/02/2021 FOOD ALLER GY PROFI LE WITH REFLE XES egg white (F1) IgE <0.10 kU/L normal Not Available [facility] [address] [address] [place], [address], 10/02/2021 17:21:54 09/28/19 22 10/02/2021 FOOD ALLER GY PROFI LE WITH REFLE XES class 0 Not Available [facility] [address] [address] [place], [address], 10/02/2021 17:21:54 09/28/19 22 10/02/2021 FOOD ALLER GY PROFI LE WITH REFLE XES peanut (F13) IgE <0.10 kU/L normal Not Available [address] [address] [place], [address], 10/02/2021 17:21:54 09/28/19 22 10/02/2021 FOOD ALLER GY PROFI LE WITH REFLE XES class 0 Not Available [facility] [address] [address] [place], [address], 10/02/2021 17:21:54 09/28/19 22 10/02/2021 FOOD ALLER GY PROFI LE WITH REFLE XES wheat (F4) IgE <0.10 kU/L normal Not Available [facility] [address] [address] [place], [address], 10/02/2021 17:21:54 09/28/19 22 10/02/2021 FOOD ALLER GY PROFI LE WITH REFLE XES class 0 Not Available [facility] [address] [address] [place], [address], 10/02/2021 17:21:54 09/28/19 22 10/02/2021 FOOD ALLER GY PROFI LE WITH REFLE XES walnut (F256) IgE <0.10 kU/L normal Not Available [address], [address], 10/02/2021 17:21:54 09/28/19 22 10/02/2021 FOOD ALLER GY PROFI LE WITH REFLE XES class 0 Not Available [address], [address], 10/02/2021 17:21:54 09/28/19 22 10/02/2021 FOOD ALLER GY PROFI LE WITH REFLE XES codfish (F3) IgE <0.10 kU/L normal Not Available [address], [address], 10/02/2021 17:21:54 09/28/19 22 10/02/2021 FOOD ALLER GY PROFI LE WITH REFLE XES class 0 Not Available [address], [address], 10/02/2021 17:21:54 09/28/19 22 10/02/2021 FOOD ALLER GY PROFI LE WITH REFLE XES cow's milk (F2) IgE <0.10 kU/L normal Not Available [address], [address], 10/02/2021 17:21:54 09/28/19 22 10/02/2021 FOOD ALLER GY PROFI LE WITH REFLE XES class 0 Not Available [address], [address], 10/02/2021 17:21:54 09/28/19 22 10/02/2021 FOOD ALLER GY PROFI LE WITH REFLE XES soybean (F14) IgE <0.10 kU/L normal Not Available [facility] [id number] [place], [address], 10/02/2021 17:21:54 09/28/19 22 10/02/2021 FOOD ALLER GY PROFI LE WITH REFLE XES class 0 Not Available [address], [address], 10/02/2021 17:21:54 09/28/19 22 10/02/2021 FOOD ALLER GY PROFI LE WITH REFLE XES shrimp (F24) IgE <0.10 kU/L normal Not Available [address], [address], 10/02/2021 17:21:54 09/28/19 22 10/02/2021 FOOD ALLER GY PROFI LE WITH REFLE XES class 0 Not Available [address], [address], 10/02/2021 17:21:54 09/28/19 22 10/02/2021 FOOD ALLER GY PROFI LE WITH REFLE XES scallop (F338) IgE <0.10 kU/L normal Not Available [address], [address], 10/02/2021 17:21:54 09/28/19 22 10/02/2021 FOOD ALLER GY PROFI LE WITH REFLE XES class 0 Not Available [address], [address], 10/02/2021 17:21:54 09/28/19 22 10/02/2021 FOOD ALLER GY PROFI LE WITH REFLE XES sesame seed (F10) IgE <0.10 kU/L normal Not Available [address], [address], 10/02/2021 17:21:54 09/28/19 22 10/02/2021 FOOD ALLER GY PROFI LE WITH REFLE XES class 0 Not Available [address] [place], [address], 10/02/2021 17:21:54 09/28/19 22 10/02/2021 FOOD ALLER GY PROFI LE WITH REFLE XES hazelnut (F17) IgE <0.10 kU/L normal Not Available [address], [address], 10/02/2021 17:21:54 09/28/19 22 10/02/2021 FOOD ALLER GY PROFI LE WITH REFLE XES class 0 Not Available [facility] [address], [address], 10/02/2021 17:21:54 09/28/19 22 10/02/2021 FOOD ALLER GY PROFI LE WITH REFLE XES cashew nut (F202) IgE <0.10 kU/L normal Not Available [address], [address], 10/02/2021 17:21:54 09/28/19 22 10/02/2021 FOOD ALLER GY PROFI LE WITH REFLE XES class 0 Not Available [address], [address], 10/02/2021 17:21:54 09/28/19 22 10/02/2021 FOOD ALLER GY PROFI LE WITH REFLE XES almond (F20) IgE <0.10 kU/L normal Not Available [facility] [address], [address], 10/02/2021 17:21:54 09/28/19 22 10/02/2021 FOOD ALLER GY PROFI LE WITH REFLE XES class 0 Not Available [facility] [address], [address], 10/02/2021 17:21:54 09/28/19 22 10/02/2021 FOOD ALLER GY PROFI LE WITH REFLE XES salmon (F41) IgE <0.10 kU/L normal Not Available [facility] [address], [address], 10/02/2021 17:21:54 09/28/19 22 10/02/2021 FOOD ALLER GY PROFI LE WITH REFLE XES class 0 Not Available [facility] [address], [address], 10/02/2021 17:21:54 09/28/19 22 10/02/2021 FOOD ALLER GY PROFI LE WITH REFLE XES tuna (F40) IgE <0.10 kU/L normal Not Available [facility] [address], [address], 10/02/2021 17:21:54 09/28/19 22 10/02/2021 FOOD ALLER GY PROFI LE WITH REFLE XES class 0 Not Available [address], [address], 10/02/2021 17:21:54 09/28/19 22 10/02/2021 SHAYE C DISEA SE COMPR EHENS HALI PANEL interpretati on No serol ogica l evide nce of shaye c disea se. tTG IgA may dalia lize in indiv idual s with shaye c disea se who maint ain a glute n-francesca e diet. Consi cristo HLA DQ2 and DQ8 testi ng to rule out shaye c disea se. Shaye c disea se is extre nickie rare in the absen ce of DQ2 or DQ8. Not Available [facility] [address], [address], 10/02/2021 17:21:53 09/28/19 22 10/02/2021 SHAYE C DISEA SE COMPR EHENS HALI PANEL tissue transglutami nase Ab, IgA <1.0 U/mL normal Value Inter preta tion ----- ----- ----- ---- <15.0 Antib stephanie not detec malaika > or = 15.0 Antib stephanie detec malaika Not Available [facility] [address] [place], [address], 10/02/2021 17:21:53 09/28/19 22 10/02/2021 SHAYE C DISEA SE COMPR EHENS HALI PANEL immunoglobul in A 269 mg/dL 47-310 normal Not Available [facility] [address] [place], [address], 10/02/2021 17:21:53 10/12/19 22 10/11/2021 urina lysis , dipst ick Leukocytes (reference range: negative ninfa/ l) Negati ve Not Available [facility] [place] [address], [place], [address], 10/11/2021 14:37:11 10/12/19 22 10/11/2021 urina lysis , dipst ick Nitrite (reference rage: negative mg/dl) negati ve Not Available [facility] [place] [address], [place], [address], 10/11/2021 14:37:11 10/12/19 22 10/11/2021 urina lysis , dipst ick Urobilinogen (reference range: 0.2-1 mg/dl) 0.2 Not Available [facility] [place] [address], [place], [address], 10/11/2021 14:37:11 10/12/19 22 10/11/2021 urina lysis , dipst ick Protein (reference range: negative mg/dl) Negati ve Not Available [facility] [place] [address], [place], [address], 10/11/2021 14:37:11 10/12/19 22 10/11/2021 urina lysis , dipst ick pH (reference range: 5-7) 5.5 Not Available [facility] [place] [address], [place], [address], 10/11/2021 14:37:11 10/12/19 22 10/11/2021 urina lysis , dipst ick Blood (reference range: negative Gage/ l) Non-He molyze d: Trace Not Available [facility] [place] [address], [place], [address], 10/11/2021 14:37:11 10/12/19 22 10/11/2021 urina lysis , dipst ick Specific [place] (reference range: 1.005-1.030) 1.020 Not Available [facility] [place] [address], [place], [address], 10/11/2021 14:37:11 10/12/19 22 10/11/2021 urina lysis , dipst ick Ketone (reference range: negative mg/dl) Negati ve Not Available [facility] [place] [address], [place], [address], 10/11/2021 14:37:11 10/12/19 22 10/11/2021 urina lysis , dipst ick Bilirubin (reference range: negative mg/dl) Negati ve Not Available [facility] [place] [address], [place], [address], 10/11/2021 14:37:11 10/12/19 22 10/11/2021 urina lysis , dipst ick Glucose (reference range: negative mg/dl) Negati ve Not Available [facility] Kiera L[facility] [address], [place], [address], 10/11/2021 14:37:11 10/12/19 22 10/11/2021 urina lysis , dipst ick Appearance Clear Not Available [facility] Kiera Lyles [address], [place], [address], 10/11/2021 14:37:11 10/12/19 22 10/11/2021 urina lysis , dipst ick Color Yellow Not Available [facility] Kiera Lyles [address], [place], [address], 10/11/2021 14:37:11 10/16/1910/16/2022 TSH+F REE T4 TSH 0.95 mIU/L normal Refer ence Range > or = 20 Years 0.40- 4.50 Pregn alexi Range s First trime ster 0.26- 2.66 Secon d trime ster 0.55- 2.73 Third trime ster 0.43- 2.91 Not Available [employer] [place] [address] [place], [address], 10/16/2022 07:43:28 10/16/1910/16/2022 TSH+F REE T4 T4, free 1.0 NG/dL 0.8-1. 8 normal Not Available [facility] [address] [place], [address], 10/16/2022 07:43:28 10/16/1910/16/2022 LIPID PANEL WITH RATIO S cholesterol, total 139 mg/dL <200 normal Not Available [facility] [address] [place], [address], 10/16/2022 07:43:30 10/16/19 23 10/16/2022 LIPID PANEL WITH RATIO S HDL cholesterol 54 mg/dL > or = 50 normal Not Available [employer] [facility] [address] [place], [address], 10/16/2022 07:43:30 10/16/1910/16/2022 LIPID PANEL WITH RATIO S triglyceride s 108 mg/dL <150 normal Not Available [employer] [facility] [address] [place], [address], 10/16/2022 07:43:30 10/16/1910/16/2022 LIPID PANEL WITH RATIO S LDL-choleste rol 66 mg/dL _(erika c) normal Refer ence range : <100 Max able range <100 mg/dL for prima ry preve ntion ; <70 mg/dL for patie nts with CHD or diabe tic patie nts with > or = 2 CHD risk facto rs. LDL-C is now calcu lated using the Kathi diggs-Hop kins binu neville n, which is a valid ated novel anao loretta deleonte r accur acy than the Fried nas equat ion in the estim ation of LDL-C . Kathi diggs SS et al. ARAM. 2013; 310(1 9): 2061- 2068 (http ://ed ucati on.Qu Heather AutoRef.com. com/f aq/FA Q164) Not Available [employer] [facility] [address] [place], [address], 10/16/2022 07:43:30 10/16/1910/16/2022 LIPID PANEL WITH RATIO S chol/HDLC ratio 2.6 (calc ) <5.0 normal Not Available [employer] [facility] [address] [place], [address], 10/16/2022 07:43:30 10/16/1910/16/2022 LIPID PANEL WITH RATIO S LDL/HDL ratio 1.2 (calc ) Below avera ge Risk: <2.34 Bonaparte ge Risk: 2.35- 4.12 Moder ate Risk: 4.13- 5.56 High Risk: >5.57 Not Available [place] [address] [place], [address], 10/16/2022 07:43:30 10/16/19 23 10/16/2022 LIPID PANEL WITH RATIO S non HDL cholesterol 85 mg/dL _(erika c) <130 normal For patie nts with diabe lamin plus 1 major ASCVD risk facto r, treat ing to a non-H DL-C goal of <100 mg/dL (LDL- C of <70 mg/dL ) is consi dered a thera peuti c optio n. Not Available [place] [address] [place], [address], 10/16/2022 07:43:30 10/16/19 23 10/16/2022 COMPR EHENS HALI METAB OLIC PANEL glucose 90 mg/dL 65-99 normal Fasti ng refer ence inter bernice Not Available [address] [address] [address] [address], [place], [address], 10/16/2022 07:43:30 10/16/19 23 10/16/2022 COMPR EHENS HALI METAB OLIC PANEL urea nitrogen (BUN) 16 mg/dL 7-25 normal Not Available [facility] [place] [address] [place], [address], 10/16/2022 07:43:30 10/16/19 23 10/16/2022 COMPR EHENS HALI METAB OLIC PANEL creatinine 0.67 mg/dL 0.50-0 .97 normal Not Available [place] [address] [address] [place], [address], 10/16/2022 07:43:30 10/16/1910/16/2022 COMPR EHENS HALI METAB OLIC PANEL eGFR 118 mL/mi n/1.7 3m2 > or = 60 normal The eGFR is based on the CKD-E PI 2020 equat ion. To calcu late the new eGFR from a previ ous Creat inine or Cysta ilia C resul t, go to https ://ww w.kid hector.radha suresh/augustin ofess ional s/ kdoqi /gfr% 5Fcal culat or Not Available [address], [address], 10/16/2022 07:43:30 10/16/19 23 10/16/2022 COMPR EHENS HALI METAB OLIC PANEL BUN/creatini ne ratio NOT APPLIC ABLE (calc ) 6-22 Not Available [address], [address], 10/16/2022 07:43:30 10/16/19 23 10/16/2022 COMPR EHENS HALI METAB OLIC PANEL sodium 139 mmol/ L 135-14 6 normal Not Available [address], [address], 10/16/2022 07:43:30 10/16/19 23 10/16/2022 COMPR EHENS HALI METAB OLIC PANEL potassium 4.3 mmol/ L 3.5-5. 3 normal Not Available [address], [address], 10/16/2022 07:43:30 10/16/19 23 10/16/2022 COMPR EHENS HALI METAB OLIC PANEL chloride 107 mmol/ L 98-110 normal Not Available [address], [address], 10/16/2022 07:43:30 10/16/19 23 10/16/2022 COMPR EHENS HALI METAB OLIC PANEL carbon dioxide 27 mmol/ L 20-32 normal Not Available [address], [address], 10/16/2022 07:43:30 10/16/19 23 10/16/2022 COMPR EHENS HALI METAB OLIC PANEL calcium 9.4 mg/dL 8.6-10 .2 normal Not Available [address], [address], 10/16/2022 07:43:30 10/16/19 23 10/16/2022 COMPR EHENS HALI METAB OLIC PANEL protein, total 6.7 g/dL 6.1-8. 1 normal Not Available [address], [address], 10/16/2022 07:43:30 10/16/19 23 10/16/2022 COMPR EHENS HALI METAB OLIC PANEL albumin 4.3 g/dL 3.6-5. 1 normal Not Available [address], [address], 10/16/2022 07:43:30 10/16/19 23 10/16/2022 COMPR EHENS HALI METAB OLIC PANEL globulin 2.4 g/dL_ (calc ) 1.9-3. 7 normal Not Available [address], [address], 10/16/2022 07:43:30 10/16/19 23 10/16/2022 COMPR EHENS HALI METAB OLIC PANEL albumin/glob ulin ratio 1.8 (calc ) 1.0-2. 5 normal Not Available [address], [address], 10/16/2022 07:43:30 10/16/19 23 10/16/2022 COMPR EHENS HALI METAB OLIC PANEL bilirubin, total 0.5 mg/dL 0.2-1. 2 normal Not Available [address], [address], 10/16/2022 07:43:30 10/16/19 23 10/16/2022 COMPR EHENS HALI METAB OLIC PANEL alkaline phosphatase 46 U/L 31-125 normal Not Available [address], [address], 10/16/2022 07:43:30 10/16/19 23 10/16/2022 COMPR EHENS HALI METAB OLIC PANEL AST 17 U/L 10-30 normal Not Available [place] [address] [place], [address], 10/16/2022 07:43:30 10/16/19 23 10/16/2022 COMPR EHENS HALI METAB OLIC PANEL ALT 15 U/L 6-29 normal Not Available [facility] [place] [address] [address] [place], [address], 10/16/2022 07:43:30 10/16/19 23 10/16/2022 HEMOG LOBIN A1C hemoglobin A1C 4.8 %_of_ total _HGB <5.7 normal For the purpo se of screprachi carterg for the prese nce of diabe lamin: <5.7% Consi stent with the absen ce of diabe lamin 5.7-6 .4% Consi stent with incre ased risk for diabe lamin (pred iabet es) > or =6.5% Consi stent with diabe lamin This assay resul t is consi stent with a decre ased risk of diabe lamin. Curre ntly, no conse nsus exist s gen oviedo use of hemog lobin A1c for diagn osis of diabe lamin in child charli. Accor ding to Ameri can Diabe lamin Assoc iatio n (ADA) guide lines , hemog lobin A1c <7.0% repre sents optim al contr ol in non-p regna nt diabe tic patie nts. Diffe rent metri cs may apply to speci fic patie nt popul ation s. Stand ards of Medic al Care in Diabe lamin(A DA). Not Available [facility] [place] [address] [address] [place], [address], 10/16/2022 07:43:31 10/16/19 23 10/16/2022 CBC (INCL UDES DIFF/ PLT) white blood cell count 4.9 thous and/u L 3.8-10 .8 normal Not Available [facility] [id number] [place] [address], [address], 10/16/2022 07:43:32 10/16/19 23 10/16/2022 CBC (INCL UDES DIFF/ PLT) red blood cell count 4.43 liborio on/uL 3.80-5 .10 normal Not Available [address], [address], 10/16/2022 07:43:32 10/16/19 23 10/16/2022 CBC (INCL UDES DIFF/ PLT) hemoglobin 13.5 g/dL 11.7-1 5.5 normal Not Available [address], [address], 10/16/2022 07:43:32 10/16/19 23 10/16/2022 CBC (INCL UDES DIFF/ PLT) hematocrit 40.3 % 35.0-4 5.0 normal Not Available [address], [address], 10/16/2022 07:43:32 10/16/19 23 10/16/2022 CBC (INCL UDES DIFF/ PLT) MCV 91.0 fL 80.0-1 00.0 normal Not Available [address], [address], 10/16/2022 07:43:32 10/16/19 23 10/16/2022 CBC (INCL UDES DIFF/ PLT) MCH 30.5 pg 27.0-3 3.0 normal Not Available [address], [address], 10/16/2022 07:43:32 10/16/19 23 10/16/2022 CBC (INCL UDES DIFF/ PLT) MCHC 33.5 g/dL 32.0-3 6.0 normal Not Available [address], [address], 10/16/2022 07:43:32 10/16/19 23 10/16/2022 CBC (INCL UDES DIFF/ PLT) RDW 12.2 % 11.0-1 5.0 normal Not Available [address], [address], 10/16/2022 07:43:32 10/16/19 23 10/16/2022 CBC (INCL UDES DIFF/ PLT) platelet count 206 thous and/u L 140-40 0 normal Not Available [address], [address], 10/16/2022 07:43:32 10/16/19 23 10/16/2022 CBC (INCL UDES DIFF/ PLT) MPV 10.5 fL 7.5-12 .5 normal Not Available [address], [address], 10/16/2022 07:43:32 10/16/19 23 10/16/2022 CBC (INCL UDES DIFF/ PLT) absolute neutrophils 2960 cells /uL 1500-7 800 normal Not Available [address], [address], 10/16/2022 07:43:32 10/16/19 23 10/16/2022 CBC (INCL UDES DIFF/ PLT) absolute lymphocytes 1504 cells /uL 850-39 00 normal Not Available [address], [address], 10/16/2022 07:43:32 10/16/19 23 10/16/2022 CBC (INCL UDES DIFF/ PLT) absolute monocytes 328 cells /uL 200-95 0 normal Not Available [address], [address], 10/16/2022 07:43:32 10/16/19 23 10/16/2022 CBC (INCL UDES DIFF/ PLT) absolute eosinophils 69 cells /uL 15-500 normal Not Available [address] [place], [address], 10/16/2022 07:43:32 10/16/19 23 10/16/2022 CBC (INCL UDES DIFF/ PLT) absolute basophils 39 cells /uL 0-200 normal Not Available [facility] [address], [address], 10/16/2022 07:43:32 10/16/19 23 10/16/2022 CBC (INCL UDES DIFF/ PLT) neutrophils 60.4 % normal Not Available [facility] [address], [address], 10/16/2022 07:43:32 10/16/19 23 10/16/2022 CBC (INCL UDES DIFF/ PLT) lymphocytes 30.7 % normal Not Available [facility] [address], [address], 10/16/2022 07:43:32 10/16/19 23 10/16/2022 CBC (INCL UDES DIFF/ PLT) monocytes 6.7 % normal Not Available [facility] [address], [address], 10/16/2022 07:43:32 10/16/19 23 10/16/2022 CBC (INCL UDES DIFF/ PLT) eosinophils 1.4 % normal Not Available [facility] [address], [address], 10/16/2022 07:43:32 10/16/19 23 10/16/2022 CBC (INCL UDES DIFF/ PLT) basophils 0.8 % normal Not Available [facility] [address], [address], 10/16/2022 07:43:32 10/15/19 22 10/11/2021 XR, kidne y + urete r + bladd er No observ ation record ed. [id number] , [place], [address], 07/02/2022 06:52:27 Result Notes None recorded. Problems Name Problem SNOMED Code Status Onset Date Resolution Date Notes Provider Name and Address Organization Details Recorded Time Renal angle tendernes s 441621778 Active 2021 Not Available [facility] 3 06:43:37 Irritable bowel syndrome 08311068 Active Not Available [facility] 3 06:43:38 Acne 05630279 Active Not Available [facility] 3 06:43:38 Plantar wart of right foot 34602186097 340283 Active Not Available [facility] 3 06:43:38 Hyperemes is gravidaru m 86670347 Completed Not Available [facility] 3 06:43:38 Anterior chest wall pain 075613193 Active Not Available [facility] 3 06:43:38 Right flank pain 295217607 Active 2021 Not Available [facility] 3 06:43:38 Contusion of coccyx 663921893 Active Not Available [facility] 3 06:43:38 Headache 94602679 Active 2021 Not Available [facility] 3 06:43:38 Thoracic back pain 608078023 Active Not Available [facility] 3 06:43:38 Cramping pain 289374753 Active Not Available [facility] 3 06:43:39 Vaginal discharge problem 625258600 Completed Not Available [facility] 3 06:43:39 Chest pain 60581752 Active Not Available [facility] 3 06:43:39 Right upper quadrant pain 680250767 Active 2021 Not Available [facility] 3 06:43:39 Bronchiti s 38387487 Completed Not Available [facility] 3 06:43:39 Pain in coccyx 11635786 Active Not Available [facility] 3 06:43:39 Uterine size for dates discrepan cy 973376804 Completed Not Available [facility] 3 06:43:39 Anxiety 43783635 Active Not Available [facility] 3 06:43:40 Premenstr ual dysphoric disorder 491095 Active 2021 Not Available [facility] 3 06:43:40 Female stress incontine nce 50026697 Active Not Available [facility] 3 06:43:40 Urinary tract infectiou s disease 14892139 Active 2021 Not Available [facility] 3 06:43:40 83070640 Completed 201711/22/2018 Not Available [facility] 3 06:43:40 Irregular periods 88142800 Completed Not Available [facility] 3 06:43:40 Fatigue 50006109 Active Not Available [facility] 3 06:43:41 Pain in limb 71523018 Active Not Available [facility] 3 06:43:41 Kidney stone 62147650 Active 2021 Not Available [facility] 3 06:43:41 Sore throat 502931695 Active 2022 KENDY Boston null, [facility] 3 09:12:10 Postviral cough 014508747 Active 2022 DELFINO Guallpa [address], [address], [place], [address] , [facility] [employer] [facility] 3 11:53:22 Bee sting 887301801 Active 2022 DELFINO Guallpa [address], [address], [place], [address] , [employer] [facility] 3 13:23:12 Lesion of scalp 10702951646 0 Active 2022 DELFINO Guallpa [address], [address], [place], [address] , [facility] [employer] [facility] 3 17:00:17 Generaliz ed anxiety disorder 97623495 Active 2022 DELFINO Guallpa [address], [address], [place], [address] , [facility] 3 22:13:04 Problem Notes None recorded. Procedures Surgical History Date Name Laterality Status Provider Name and Address Organization Details Recorded Time 12/23/19 19 total excision of bilateral fallopian tubes completed Not Available [facility] 07/02/2022 06:39:10 03/09/20 18 Cholecystectomy completed Not Available [facility] 07/02/2022 06:39:10 05/06/19 18 Date of Last Pap Smear completed Not Available [facility] 07/02/2022 06:39:09 01/16/20 17 LEAD PRESSMAN Procedure completed Not Available [facility] 07/02/2022 06:39:10 06/22/19 15 LEAD PRESSMAN Procedure completed Not Available [facility] 07/02/2022 06:39:10 Imaging Results Imaging Date Name Status LastModified by Organiz ation Details LastModified Time 10/11/2021 XR, kidney + ureter + bladder completed [id number] [id number], [place], [address], 07/02/2022 06:52:27 Procedure Notes None recorded. Medical Equipment None Reported. Allergies Allergen ID Allergen Name Allergen Category Reaction Reaction Severity Criticality Documentation Date Start Date Code Code System Note Provider Name and Address Organization Details Recorded Time 23839 acetamino phen / hydrocodo ne medicatio n itching moderate Not available 07/02/2022 76025 2 RxNorm Not Available [facility] 3 06:52:20 41038 acetamino phen / hydrocodo ne medicatio n itching Not available Not available 07/02/2022 04571 2 RxNorm Not Available [facility] 3 06:52:21 16218 Compazine medicatio n Not available Not available Not available 07/02/2022 42270 6 RxNorm tonic jaw/n yusef Not Available [facility] 3 06:52:21 Medications Name Sig Start Date Stop Date Status Note LastModified by Organization Details LastModified Time Mirena 21 mcg/24 hr (up to 8 years) 52 mg intrauteri ne device 05/06 completed Not Available Not Available Not Available azithromyc in 250 mg tablet TAKE 2 TABLETS (500 MG) BY ORAL ROUTE ONCE DAILY FOR 1 DAY THEN 1 TABLET (250 MG) BY ORAL ROUTE ONCE DAILY FOR 4 DAYS active Not Available Not Available No t Available hydrocodon e 5 mg-acetami nophen 325 mg tablet Take by oral route as needed for 3 days. active Not Available Not Available No t Available minocyclin e 100 mg capsule Take 1 capsule every 12 hours by oral route. 12/30 completed Not Available Not Available Not Available promethazi ne 12.5 mg tablet tablet by mouth every 6 hours as necessar y for nausea active Not Available Not Available No t Available ondansetro n HCl 4 mg tablet Take 2 tablets every 8 hours by oral route. 11/09 completed Not Available Not Available Not Available spironolac tone 100 mg tablet TAKE 1 TABLET BY MOUTH DAILY 10/11 completed Not Available Not Available Not Available fluoxetine 10 mg tablet TAKE 1 TABLET BY MOUTH DAILY 04/20 completed Not Available Not Available Not Available phentermin e 37.5 mg tablet Take 1 tablet every day by oral route. 2022 active Not Available Not Available Not Avai lable acetaminop hen 300 mg-codeine 30 mg tablet 12/16 completed Not Available Not Available Not Available omeprazole 40 mg capsule,de layed release 11/03 completed Not Available Not Available Not Available dextrose 5 % and lactated ringers intravenou s solution Inject 1000 mL as needed by intraven ous route as needed for 56 days. 05/31 completed Not Available Not Available Not Available ketorolac 10 mg tablet TK 1 T PO Q 6 H WC FOR 5 DAYS active Not Available Not Available No t Available oxycodone- acetaminop hen 5 mg-325 mg tablet 04/05 completed Not Available Not Available Not Available amoxicilli n 875 mg tablet 07/25 completed Not Available Not Available Not Available famotidine 20 mg tablet Take 1 tablet twice a day by oral route with meals. active Not Available Not Available No t Available methocarba mol 750 mg tablet 06/17 completed Not Available Not Available Not Available dicyclomin e 20 mg tablet active Not Available Not Available Not Available cephalexin 500 mg capsule Take 1 capsule every 8 hours by oral route. active Not Available Not Available No t Available oseltamivi r 75 mg capsule TK 1 C PO QD FOR 14 DAYS 07/20 completed Not Available Not Available Not Available fluoxetine 20 mg tablet Take 1 tablet every day by oral route. active Not Available Not Available No t Available Cipro 500 mg tablet Take 1 tablet every 12 hours by oral route. 12/27 completed Not Available Not Available Not Available misoprosto l 200 mcg tablet Take 2 tablets by oral route at bedtime for 1 day. 05/06 completed Not Available Not Available Not Available prednisone 50 mg tablet Take 1 tablet every day by oral route for 5 days. 09/24 completed Not Available Not Available Not Available mupirocin calcium 2 % topical cream 05/25 completed Not Available Not Available Not Available omeprazole 20 mg capsule,de layed release TK 1 C PO QD active Not Available Not Available No t Available diclofenac sodium 75 mg tablet,del ayed release Take 1 tablet twice a day by oral route with meals. 11/18 completed Not Available Not Available Not Available codeine 10 mg-guaifen esin 100 mg/5 mL oral liquid Take 10 mL every 4-6 hours by oral route as needed. 09/24 completed Not Available Not Available Not Available mupirocin 2 % topical ointment active Not Available Not Available Not Available ergocalcif kendra (vitamin D2) 1,250 mcg (50,000 unit) capsule TAKE 1 CAPSULE BY MOUTH EVERY WEEK DIRECTED 09/25 completed Not Available Not Available Not Available ibuprofen 600 mg tablet TK 1 T PO Q 8 H 05/06 completed Not Available Not Available Not Available methylpred nisolone 4 mg tablets in a dose pack 05/31 completed Not Available Not Available Not Available ondansetro n 4 mg disintegra ting tablet Take 2 tablets every 12 hours by oral route. 11/09 completed Not Available Not Available Not Available fluticason e propionate 50 mcg/actuat ion nasal spray,susp ension inhale 2 sprays each nostril daily active Not Available Not Available No t Available medroxypro gesterone 150 mg/mL intramuscu lar suspension Inject 1 mL every 3 months by intramus cular route. 06/22 completed Not Available Not Available Not Available spironolac tone 50 mg tablet 09/25 completed Not Available Not Available Not Available metoclopra mide 10 mg tablet TK 1 T PO QID 08/17 completed Not Available Not Available Not Available progestero ne micronized 100 mg capsule 09/25 completed Not Available Not Available Not Available amoxicilli n 875 mg-potassi um clavulanat e 125 mg tablet Take 1 tablet every 12 hours by oral route. 07/25 completed Not Available Not Available Not Available Bactrim DS 800 mg-160 mg tablet Take 1 tablet every 12 hours by oral route. 09/04 completed Not Available Not Available Not Available medroxypro gesterone 150 mg/mL intramuscu lar syringe INJECT 1ML IM Q 3 MONTHS active Not Available Not Available No t Available Zofran 08/17 completed Not Available Not Available Not Available daily 04/04 completed Not Available Not Available Not Available Calcium 600 with Vitamin D3 daily 04/04 completed Not Available Not Available Not Available drospireno ne 3 mg-ethinyl estradiol 0.02 mg tablet TAKE 1 TABLET BY MOUTH EVERY DAY TAKE CONTINUO US MANNER 09/25 completed Not Available Not Available Not Available Ziana 1.2 %-0.025 % topical gel weekly 05/25 completed Not Available Not Available Not Available Benzaclin Pump 1 %-5 % topical gel APPLY TO THE AFFECTED AREA(S) BY TOPICAL ROUTE 2 TIMES PER DAY IN THEMORNI NG AND EVENING 06/17 completed Not Available Not Available Not Available Aczone 5 % topical gel daily 05/25 completed Not Available Not Available Not Available Lo Loestrin Fe 1 mg-10 mcg (24)/10 mcg (2) tablet Take 1 tablet every day by oral route. 04/05 completed 4 sample packs given to pt Not Available Not Available Not Available ondansetro n 8 mg/50 mL in 5 % dextrose intravenou s piggyback Inject 8 mg every day by intraven ous route as needed for 42 days. 05/31 completed Not Available Not Available Not Available Onexton 1.2 % (1 % base)-3.75 % topical gel 06/17 completed Not Available Not Available Not Available Wegovy 0.25 mg/0.5 mL subcutaneo us pen injector Inject 0.25 mg every week by subcutan eous route as directed . 2022 active Not Available Not Available Not Avai lable Vitals Date Recorded Body mass index (BMI) Body mass index (BMI) Body mass index (BMI) Body height Body height Body height Oxygen saturation Oxygen saturation in Arterial blood by Pulse oximetry Oxygen saturation Oxygen saturation in Arterial blood by Pulse oximetry Oxygen saturation Oxygen saturation in Arterial blood by Pulse oximetry Heart rate Heart rate Heart rate Respiratory rate Respiratory rate Respiratory rate Body temperature Body temperature Body temperature Body weight Body weight Body weight Systolic blood pressure Diastolic blood pressure Systolic blood pressure Diastolic blood pressure Systolic blood pressure Diastolic blood pressure Provider Name and Address Organization Details Last Updated DateTime 3 27.3 kg/m2 27.1 kg/m2 26.8 kg/m2 167.64 cm 167.64 cm 167.64 cm 95 % 95 % 99 % 99 % 97 % 97 % 104 /min 93 /min 104 /min 16 /min 16 /min 16 /min 97.6 [degF] 97.4 [degF] 97.3 [degF] 7665 7.1 1 g 09992.5 2 g 67540.6 1 g 110 mm[Hg] 70 mm[Hg] 112 mm[Hg] 66 mm[Hg] 120 mm[Hg] 80 mm[Hg] Not Available [employer] 3 06:39:39 Date Recorded Body height Body temperature Body mass index (BMI) Body weight Heart rate Oxygen saturation Oxygen saturation in Arterial blood by Pulse oximetry Systolic blood pressure Diastolic blood pressure Provider Name and Address Organization Details Last Updated DateTime 3 167.64 cm 97.1 [degF] 26.8 kg/m2 49075.3 3 g 104 /min 98 % 98 % 112 mm[Hg] 70 mm[Hg] Jeanna Willis RN [place] - [facility] 3 11:41:14 Date Recorded Body height Body temperature Body mass index (BMI) Body weight Respiratory rate Oxygen saturation Oxygen saturation in Arterial blood by Pulse oximetry Heart rate Systolic blood pressure Diastolic blood pressure Provider Name and Address Organization Details Last Updated DateTime 3 167.64 cm 98 [degF] 27.1 kg/m2 62167.5 2 g 16 /min 98 % 98 % 89 /min 118 mm[Hg] 78 mm[Hg] KENDY [place] - [facility] 10:49:53 Social History Question Answer Notes LastModified by Organizat ion Details LastModified Time Tobacco Smoking Status Former Smoker quit 2010 Not Available [facility] 07/02/2022 06:39:02 What Is Your Level Of Alcohol Consumption? None [id number] Information not available 07/02/2022 What Is Your Level Of Caffeine Consumption? Moderate MIGRATION.91054 [id number] Information not available 07/02/2022 How Much Tobacco Do You Chew? None MIGRATION.06551 86499 Information not available 07/02/2022 In The 14 Days Before Symptom Onset, Have You Had Close Contact With A Laboratory-confir med COVID-19 While That Case Was Ill? No MIGRATION.11628 [id number] Information not available 07/02/2022 In The 14 Days Before Symptom Onset, Have You Had Close Contact With A Person Who Is Under Investigation For COVID-19 While That Person Was Ill? No MIGRATION.01370 85170 Information not available 07/02/2022 Are You Currently Employed? Yes [email or web address] Information not available 07/25/2022 What Type Of Diet Are You Following? REGULAR MIGRATION.51377 [id number] Information not available 07/02/2022 Which Illicit Or Recreational Drugs Have You Used? None MIGRATION.92240 08903 Information not available 07/02/2022 Do You Or Have You Ever Used E-cigarettes Or Vape? 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 No MIGRATION.75059 81669 Information not available 07/02/2022 Do You Use Insect Repellent Routinely? No MIGRATION.66836 57544 Information not available 07/02/2022 What Is Your Relationship Status? Single MIGRATION.28965 22821 Information not available 07/02/2022 Do You Use Your Seat Belt Or Car Seat Routinely? Yes MIGRATION.83751 32796 Information not available 07/02/2022 Do You Have Smoke And Carbon Monoxide Detectors In Your Home? Yes MIGRATION.03243 58950 Information not available 07/02/2022 At What Age Did You Start Smoking Tobacco? 15 MIGRATION.50563 36872 Information not available 07/02/2022 Do You Or Have You Ever Used Smokeless Tobacco? Never Used Smokeless Tobacco MIGRATION.61089 33131 Information not available 07/02/2022 How Much Tobacco Do You Smoke? No MIGRATION.30702 34651 Information not available 07/02/2022 Do You Use Any Illicit Or Recreational Drugs? No MIGRATION.12512 54574 Information not available 07/02/2022 Do You Use Sunscreen Routinely? Yes MIGRATION.39266 27999 Information not available 07/02/2022 How Many Years Have You Smoked Tobacco? 4 MIGRATION.44597 84863 Information not available 07/02/2022 Have You Recently Traveled Abroad? No MIGRATION.10491 67317 Information not available 07/02/2022 Do You Have Any Dietary Restrictions? No MIGRATION.70764 99445 Information not available 07/02/2022 Do You Or Have You Ever Used Any Other Forms Of Tobacco Or Nicotine? No MIGRATION.15575 10593 Information not available 07/02/2022 Sex: Unknown Functional Status Question Answer Note LastModified by Organizat ion Details LastModified Time What is your exercise level? Moderate [id number] Information not available 07/02/2022 Mental Status None recorded. Family History Relationship Description Onset Age of this Age Resolved Age Notes LastModified by Organization Details LastModified Time Maternal Grandmother Diabetes mellitus [id number] [id number] Not available 07/02/2022 06:39:11 Maternal Grandmother Hypertensive disorder MIGRATION.383 [id number] Not available 07/02/2022 06:39:11 Paternal Grandmother Malignant tumor of breast MIGRATION.436 [id number] Not available 07/02/2022 06:39:11 Father Pulmonary embolism MIGRATION.846 [id number] Not available 07/02/2022 06:39:11 Medical History Condition Response ANXIETY DISORDER Y BOWEL PROBLEMS Y Gynecological History Statement/Question Response Date of Last Pap Smear 05/06/2017 Current Control Method Sterilizati on Age at Menarche 11 Obstetrics History GPAL:G 3 P 3 0 0 3 Type Value Full Term 3 Living 3 Total 3 Immunizations Vaccine Type Date Status Note Provider Nam e and Address Organization Details Recorded Time tetanus toxoid, unspecified formulation 5 completed Not Available [facility] 07/02/2022 06:52:03 TST, unspecified formulation 4 completed Not Available [facility] 07/02/2022 06:52:04 COVID-19, mRNA, LNP-S, PF, 30 mcg/0.3 mL dose 1 completed Not Available [facility] 07/02/2022 06:52:04 COVID-19, mRNA, LNP-S, PF, 30 mcg/0.3 mL dose 1 completed Not Available [facility] 07/02/2022 06:52:04 Influenza, split virus, quadrivalent, PF 9 completed Not Available [facility] 07/02/2022 06:52:05 Tdap 9 completed Not Available [facility] 07/02/2022 06:52:05 Tdap 4 completed Not Available [facility] 07/02/2022 06:52:05 Past Encounters Encounter ID Performer Location Encounter Start Date Encounter Closed Date Diagnosis/Indication Diagnosis SNOMED-CT Code Diagnosis ICD10 Code Diagnosis Note [id number] _GÉNESIS_M IGRATION_ DEFAULT_1 _1 , 08/27/2020 00:00:00 08/27/2020 12:01:27 [id number] [facility] [address] [place] [address] 09/06/2020 00:00:00 09/27/2020 01:23:28 [id number] [facility] [address] [place] [address] 09/25/2021 00:00:00 09/25/2021 11:53:07 [id number] [facility] [address] [place] [address] 10/11/2021 00:00:00 10/21/2021 12:46:50 [id number] [facility] [address] [place] [address] 01/09/2022 00:00:00 01/30/2022 23:56:35 [id number] DELFINO Guallpa [facility] [address] [place] [address] 07/25/2022 11:34:47 07/25/2022 11:56:36 Postviral cough 035450844 R05.3 Rx for prednisone 50mg daily x 5 days, and Virtussin AC as directed [id number] DELFINO Guallpa [facility] [place] [address] [place] [address] 09/25/2022 10:44:59 09/25/2022 11:13:55 Adult health examination 876479749 Z00.00 well exam completed Premenstru al dysphoric disorder 098536 F32.81 pt is off medication and feeling stable. no c/o Cholesterol screening 27 1460215 Z13.220 fasting lipids due Diabetes m ellitus screening 044876824 Z13.1 a1c screening due Thyroid di sorder screening 947857738 Z13.29 thyroid labs due Body mass index 25-29 - overweight 029628511 Z68.27 start wegovy trial. Health Concerns Section Related Observation LastModified by Organization Detai ls LastModified Time None Recorded Concern Status LastModified by Organization Details LastModified Time None Recorded Advance Directives Directive None Recorded Payers Encounter Date Sequence Insurance Name Policy Number Policy Velazquez Covered Member ID Velazquez Member ID Guarantor Name 07/25/2022 1 [facility] [id number] Flakita Bridges [id number] 2 Flakita Bridges 09/25/2022 1 [facility] [id number] Flakita Bridges [id number] 2 Flakita Bridges Notes Date Note Type Note Provider Name and Address Organization Details Recorded Time 09/25/2021 text/html Anxiety/Depressi onRep orted bypatient.Quality:oleary snt matter time of day. Severity:denies suicidal ideations; able to maintain relationships; does not interfere with activities of daily living Duration:symptoms lasting over 2 weeks Onset/Timing:still present Context:no major life stressors Modifying Factors:medications as directed Associated Symptoms:denies homicidal ideations; no significant weight gain; no significant weight loss; no visual/auditory hallucinations; no delusions; no shortness of breath; mood good; no anxiety; no crying spells; no panic; no isolation; sleeping well; appetite good; energy good; no apathy; maintaining functionalityNotes:on fluoxetine for PMDD Not Available [employer] 09/25/2021 11:53:07 10/11/2021 text/html Back Pain - GeneralReported bypatient.Location:pa in free; radiates around to the front R side. Quality:sharp;aching Severity:pain level 7/10;moderate (5-7);interference with sleep;interference with work Duration:constant Timing:gradual (started the first of the month but has gotten much worse the last three days) Aggravating Factors:twisting;sitt ing;activity Associated Symptoms:no fever; no weak limbs; no tingling; no numbness of the legs/feet; no incontinence; no shortness of breath; no sob but hurts to take deep breaths. Not Available [employer] 10/21/2021 12:46:50 01/09/2022 text/html HeadacheReported bypatient.Location:fr ontal; temporal; band around head Quality:not the worst headache ever; similar to previous headaches;aching Severity:pain level 6/10 (at its worse) Duration:constant; has noted for 1 months Onset/Timing:still present Context:not related to trauma Aggravating factors:nothing makes it worse Alleviating factors:OTC medication Associated Symptoms:no nausea; no vomiting; no fever; no constipation; no diarrhea; no nasal congestion/discharge; no sensitivity to light; tearing/watery eyes; no confusion; no slurred speech; no preceeding aura; no double vision; normal feeling/sensation; no motor paralysis; no dizziness; no nosebleeds; no hoarseness; no sore throat; no hearing loss; no weight loss;sleep disturbances;eyelid edema Not Available [facility] [employer] [facility] 01/30/2022 23:56:35 07/25/2022 text/html CoughReported bypatient.Quality:min sh;tight Severity:moderate Duration:constant; symptoms lasting over 2 weeks Timing:gradual Context:non-smoker Associated Symptoms:agitated DELFINO Guallpa [address] [facility], [facility] [address], [place], [address], [employer] 07/31/2022 15:33:05 09/25/2022 text/html Anxiety/Depressi onRep orted bypatient.Quality:oleary snt matter time of day. Severity:denies suicidal ideations; able to maintain relationships;interfe rence with household activities;interferen ce with sleep;interference with work Duration:symptoms lasting over 2 weeks Onset/Timing:still present Context:no major life stressors Modifying Factors:off her medication Associated Symptoms:denies homicidal ideations; no significant weight gain; no significant weight loss; no visual/auditory hallucinations; no delusions; no shortness of breath;anxiety;sleep disturbances;palpitat ions Wellness DELFINO Guallpa [address] [facility] [address], [place], [address], [facility] 09/28/2022 15:05:18 OBGyn Episode No OBEpisode recorded.
--- OUTSIDE RECORDS SUMMARY | 2024-06-10 11:21 | XMS_ITS | Data Portability ---
Author Organization [facility] Address [address] [place] [address] Care Team Providers Care Support Architect Name Role Phone NIKOLAY COLE Primary Care Provider Unavailab le Assessment No assessment recorded. Plan of Treatment Reminders Order Date Submit Date Provider Last Modified By Organization Details Last Modified Time Details Appointments None recorded. Lab TSH + free T4, serum 2023 024 [facility], [address], [place], [address], 4 09:23:25 CMP, serum or plasma 2023 024 [facility] [address], [place], [address], 4 10:53:15 CBC w/ auto diff 2023 024 [facility], [address], [place], [address], 4 10:53:15 vitamin B12 + folate, serum or blood 2023 024 [facility], [address], [place], [address], 4 10:53:15 lipid panel, serum 2023 024 [facility], [address], [place], [address], 4 10:53:15 HbA1c (hemoglobi n A1c), blood 2023 024 [facility], [address], [place], [address], 10:53:15 Referral None recorded. Procedures None recorded. Surgeries None recorded. Imaging None recorded. Medication Orders bupropion HCl XL 150 mg 24 hr tablet, extended release 2023 024 [id number], [address], [place], [place], [id number], 14:15:48 Patient TargetsNo targets recorded. Patient InstructionsNo instructions recorded. Reason for Referral None Reported. Results Created Date Observation Date Name Description Value Unit Range Abnormal Flag Note LastModifiedBy Organization Detail LastModifiedTime Result Notes None recorded. Problems Name Problem SNOMED Code Status Onset Date Resolution Date Notes Provider Name and Address Organization Details Recorded Time Major depressive disorder 704647401 Active 2023 DELFINO Guallpa Attn: Iona zavala,[address] [facility], [place], [address], [facility] - [facility] 4 14:15:53 Generalized anxiety disorder 37728997 Active 2023 DELFINO Guallpa Attn: Iona g,[address] [facility], [place], [address], [facility] - [place] 4 14:16:28 Insomnia 727909164 Active 2023 DELFINO Guallpa Attn: Accountin g,[address] [facility], [place], [address], [place] - [place] 4 14:16:46 Body mass index 25-29 - overweight 267029930 Active 2023 DELFINO Guallpa Attn: Jaquelinein g,[address] [facility], [place], [address], [facility] - SI 4 14:16:48 Long-term drug therapy Active 2023 DELFINO Guallpa Attn: Iona zavala,[address], [place], [address], [facility] - [facility] 4 14:17:04 Positive screening for depression on PHQ-9 (Patient Health Questionnai re 9) 7637055305425 00 Active 2023 DELFINO Guallpa Attn: Iona zavala,[address], [place], [address], [facility] - [facility] 4 14:19:00 Problem Notes None recorded. Procedures Surgical History Date Name Laterality Status Provider Name and Address Organization Details Recorded Time 05/04/19 excision of bilateral fallopian tubes and ovaries completed Delisa Baker MA [facility] 10/23/2023 12:05:22 Cholecystectomy completed Delisa Baker MA [facility] 10/23/2023 12:05:04 Imaging Results None recorded. Procedure Notes None recorded. Medical Equipment None Reported. Allergies Allergen ID Allergen Name Allergen Category Reaction Reaction Severity Criticality Documentation Date Start Date Code Code System Note Provider Name and Address Organization Details Recorded Time 981944 acetamino phen / hydrocodo ne medicatio n Not available Not available Not available 10/23/2023 94245 2 RxNorm Not Available Not Available Not Available 647824 Compazine medicatio n Not available Not available Not available 10/23/2023 14556 6 RxNorm Not Available Not Available Not Available Medications Name Sig Start Date Stop Date Status Note LastModified by Organization Details LastModified Time fluoxetine 10 mg tablet 10/22 completed Not Available Not Available Not Available cephalexin 500 mg capsule 10/22 completed Not Available Not Available Not Available fluoxetine 20 mg tablet active Not Available Not Available Not Available mupirocin 2 % topical ointment 10/22 completed Not Available Not Available Not Available bupropion HCl XL 150 mg 24 hr tablet, extended release Take 1 tablet every day by oral route in the morning. 2023 active Not Available Not Available Not Avai lable Vitals Date Recorded Body height Body mass index (BMI) Body weight Respiratory rate Oxygen saturation Oxygen saturation in Arterial blood by Pulse oximetry Heart rate Systolic blood pressure Diastolic blood pressure Provider Name and Address Organization Details Last Updated DateTime 167.64 cm 25.9 kg/m2 21306.9 3 g 20 /min 99 % 99 % 75 /min 122 mm[Hg] 68 mm[Hg] Delisa Baker [place] [facility] 12:03:22 Social History Question Answer Notes LastModified by Organizat ion Details LastModified Time Tobacco Smoking Status Never Smoker Delisa Baker MA null, [facility] 10/23/2023 12:00:43 What Is Your Level Of Alcohol Consumption? Occasional Information not available 10/23/2023 Are You Blind Or Do You Have Difficulty Seeing? No Contacts Information not available 10/23/2023 What Is Your Level Of Caffeine Consumption? Moderate Information not available 10/23/2023 In The 14 Days Before Symptom Onset, Have You Had Close Contact With A Laboratory-confir med COVID-19 While That Case Was Ill? No Information not available 10/22/2023 In The 14 Days Before Symptom Onset, Have You Had Close Contact With A Person Who Is Under Investigation For COVID-19 While That Person Was Ill? No Information not available 10/22/2023 Have You Been To An Area Known To Be High Risk For COVID-19? No Information not available 10/22/2023 Are You Deaf Or Do You Have Serious Difficulty Hearing? No Information not available 10/23/2023 What Type Of Diet Are You Following? REGULAR Information not available 10/23/2023 Are There Any Guns Present In Your Home? No Information not available 10/23/2023 What Was The Date Of Your Most Recent Tobacco Screening? 10/23/2023 Information not available 10/23/2023 Do You Use Your Seat Belt Or Car Seat Routinely? Yes Information not available 10/22/2023 Do You Have Smoke And Carbon Monoxide Detectors In Your Home? Yes Information not available 10/22/2023 Do You Use Any Illicit Or Recreational Drugs? No Information not available 10/23/2023 Do You Use Sunscreen Routinely? Yes Information not available 10/23/2023 Has Tobacco Cessation Counseling Been Provided? Yes Information not available 10/22/2023 On What Date Was Tobacco Cessation Counseling Provided? 10/23/2023 Information not available 10/23/2023 Do You Or Have You Ever Used Any Other Forms Of Tobacco Or Nicotine? No Information not available 10/23/2023 Sex: Female Functional Status Question Answer Note LastModified by Organization D etails LastModified Time Are you able to care for yourself? Yes Information n ot available 10/22/2023 What is your exercise level? None Information not available 10/23/2023 Mental Status None recorded. Family History Relationship Description Onset Age of this Age Resolved Age Notes LastModified by Organization Details LastModified Time Father Blood coagulation disorder [email or web address] Not available 2023 12:05:34 Medical History Condition Response Coronary Artery Disease N Other N High Blood Pressure N Atrial Fibrillation N Kidney or Bladder Problems N Thyroid Problems N GI Problems N Depression Y COPD N Blood Clots N Skin Problems N Anemia N Heart Attack (NC) N Anxiety Disorder Y Diabetes N Muscle, Joint, or Bone Problems N Seizures/Epilepsy N Acid Reflux (GERD) N Cancer N Stroke N Asthma N Allergies N High Cholesterol N Hepatitis N Liver Disease N Headaches N Osteoporosis N Heart Failure N Gynecological History Statement/Question Response Flow Moderate Date of LMP 10/15/2023 Menses Monthly Y Duration of Flow (days) 4 Current Control Method None LMP Approximate Obstetrics History GPAL:G 3 P 3 0 0 3 Type Value Full Term 3 Induced 0 Spontaneous 0 Premature 0 Living 3 Total 3 Past Encounters Encounter ID Performer Location Encounter Start Date Encounter Closed Date Diagnosis/Indication Diagnosis SNOMED-CT Code Diagnosis ICD10 Code Diagnosis Note [id number] DELFINO Guallpa [facility] - [place] [address] [place] [address] 10/23/2023 11:26:15 10/23/2023 12:46:14 Body mass index 25-29 - overweight 051906561 Z68.25 Major depr essive disorder 885335096 F32.9 Start Wellbutrin XL 150 mg daily. Call with efficacy in 3-4 weeks or contact provider through patient portal. Pt to seek ER with any S.I. She will call with any intoleranc e, side effects or lack of efficacy issues. Generalize d anxiety disorder 91741720 F41.1 Continue fluoxetine 20 mg daily, anxiety is stable. Insomnia 880035950 G47.0 0 Patient does have some persistent insomnia but hopefully with better management of her depression the insomnia will improve. She is welcome to use over-the-c ounter melatonin or supplement for sleep. Adult heal th examination 671475375 Z00.01 Annual wellness completed Cholesterol screening 27 2878376 Z13.220 Fasting lipid panel is due Diabetes m ellitus screening 652695743 Z13.1 A1c screening is due Thyroid di sorder screening 610319031 Z13.29 Thyroid panel is due Long-term drug therapy 521140545 Z79.899 cmp, cbc and b12, folate labs are due Positive s creening for depression on PHQ-9 (Patient Health Questionnaire 9) 3896615373 20210 Z13.31 Score on questionna trini today is 16. Wellbutrin will be started as stated above. Health Concerns Section Related Observation LastModified by Organization Detai ls LastModified Time None Recorded Concern Status LastModified by Organization Details LastModified Time None Recorded Advance Directives Directive None Recorded Payers Encounter Date Sequence Insurance Name Policy Number Policy Velazquez Covered Member ID Velazquez Member ID Guarantor Name 10/23/2023 1 [facility] [id number] Roosevelt Bridges [id number] 2 Flakita Bridges Notes Date Note Type Note Provider Name and Address Organization Details Recorded Time 10/23/2023 text/html Anxiety/Depressi on Reported bypatient.Quality: mood worse Severity:denies suicidal ideations; able to maintain relationships; does not interfere with activities of daily living Duration:frequent; symptoms lasting over 2 weeks Onset/Timing:gradu al Context:no major life stressors Associated Symptoms:hostility ;depression;insomn ia;sleep disturbances;decre ased effectiveness/prod uctivityInsomniaRe ported bypatient.Quality: symptoms worse in the evening Severity:same; moderate Duration:frequent Context:using medications for sleep Modifying Factors:OTC medication Associated Symptoms:anxiety;d epression DELFINO Guallpa Attn: Accounting[address] [place], [address], [facility] 11/07/2023 14:19:17 OBGyn Episode No OBEpisode recorded.
== END 2024-06-10 10:37 | disposition home or self-care (01) ==
PROVIDERS: PCP Physician Assistant; Visit Provider Physician Assistant
DX: R74.01 Elevation of levels of liver transaminase levels (principal); Z90.49 Acquired absence of other specified parts of digestive tract
CPT/HCPCS: 76705

== ENCOUNTER 2024-08-06 09:42 | Emergency (ER) | payer OTHER, SELFPAY ==
[2024-08-06 09:52] VITALS: BP 115/81; PULSE 87; RESP 16; TEMP 36.3; O2SAT 99
--- NOTE | 2024-08-06 10:19 | ED_ITS ---
HPI - General Adult General Chief complaint: Back Pain/Injury Stated complaint: left back/side/pelvic pain Time Seen by Provider: 08/06/24 10:04 Source: patient and RN notes reviewed Mode of arrival: ambulatory Limitations: no limitations History of Present Illness HPI narrative: Patient presents today with a 10 day history of left low back pain radiating to the left lower quadrant and groin area. Symptoms have worsened over past 2 days. Denies injury,, urinary symptoms. She denies any additional symptoms to include fever, nausea or vomiting, sweats or chills. She currently rates her pain 7/10 and has tried ibuprofen without relief. States the pain is constant. Reports that she is constipated, but chronically so. Her constipation is no worse than normal. She had a small bowel movement this morning. History of left ovarian cysts. She also has history of bilateral salpingectomy. Related Data Home Medications ?Medication ?Instructions ?Recorded ?Confirmed ?Last Taken ?Type Saccharomyces boulardii 250 mg 250 mg PO BID 03/11/23 08/06/24 Unknown History capsule (Daily Probiotic (S. boulardii)) Allergies Allergy/AdvReac Type Severity Reaction Status Date / Time prochlorperazine Allergy Severe TONIC JAW Verified 08/06/24 09:50 hydrocodone AdvReac Severe ITCHY Verified 08/06/24 09:50 Review of Systems Review of Systems: CONSTITUTIONAL: Denies body aches, fever, chills, or sweats. EYES: Denies visual changes, redness, or discharge. ENT: Denies rhinorrhea, congestion, sore throat, or otalgia. CARDIOVASCULAR: Denies chest pain, palpitations, or edema. RESPIRATORY: Denies cough or dyspnea. GASTROINTESTINAL: Denies nausea, vomiting, or diarrhea.+ abdominal pain GENITOURINARY: Denies dysuria or hematuria. SKIN: Denies rash, itching, or wounds. MUSCULOSKELETAL: Denies joint pain, or myalgia.+ back pain NEUROLOGIC: Denies headache, numbness, tingling, or weakness. PSYCH: Denies depression or anxiety. [facility] Past Medical History Medical History Loose stools Abdominal pain Vaginal delivery 09/23/08 Damon --no complications 11/19/13 Emigdio --no complications 11/07/18 Jose Antonio --no complications Encounter for IUD removal 01/15/17 Mirena removal via hscope in OR Encounter for IUD insertion 06/22/14 Mirena insertion Insomnia Vitamin D deficiency Anxiety Surgical History Surgical History History of bilateral salpingectomy (12/22/18) undesired fertility History of cholecystectomy (03/09/18) History of hysteroscopy (01/15/17) hscope IUD removal Family History Family History Grandparent Diabetes mellitus maternal grandmother Hypertension maternal grandmother Breast cancer paternal grandmother Father Pulmonary embolism Other Breast cancer 2 paternal Aunts Mother Breast cancer, Onset Age: 57 2023 Social History Social History Smoking status: Never smoker Tobacco type: cigarettes Second hand tobacco smoke exposure: No Smoking end date: 05/04/09 Alcohol intake: former Alcohol use details: 1-2 a month Substance use: never Substance use type: does not use Do You Feel Safe in your Home?: Yes Lack of Transportation: No Lack of Food: Never True Current Housing: I Have Housing Concerned About Future Housing: No Difficulty Paying Gas/Electric Bills: No Difficulty Paying for Meds: No Currently Unemployed: No Education: Trade/Vocational Certificate Difficulty w/ Childcare or Family Care: No Living arrangements: with family Additional living arrangements comments: Occupation/Education: occupation 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 Please see nursing chart for further information. There is no relevant family history pertinent to the presenting complaint Exam Narrative: GENERAL: Well-appearing, well-nourished, and in no acute distress. HEAD: Normocephalic, atraumatic. EYES: EOMI. No redness or drainage. Conjunctivae normal. ENT: Mucous membranes pink and moist. NECK: Normal AROM. CHEST: No respiratory distress. Clear to auscultation. HEART: Regular rate and rhythm. No murmur appreciated. Normal peripheral pulses. ABDOMEN: Soft, nondistended, normal active bowel sounds.+ tenderness in the left lower quadrant without rebound or guarding MUSCULOSKELETAL: No bony or muscular tenderness of the back. EXTREMITIES: Normal range of motion. No edema. SKIN: Warm, dry, no rash. Capillary refill normal. Normal skin turgor. NEURO: No focal deficits. Alert and oriented x3. Gait steady. PSYCH: Normal affect. No signs of depression or anxiety. Course Course Level of Care: Express Care Visit Vital Signs Vital signs: Vital Signs Temperature 97.3 F L 08/06/24 09:52 Pulse Rate 87 08/06/24 09:52 Respiratory Rate 16 08/06/24 09:52 Blood Pressure 115/81 08/06/24 09:52 Pulse Oximetry 99 08/06/24 09:52 Oxygen Delivery Room Air 08/06/24 09:52 Temperature 97.3 F L 08/06/24 09:52 Pulse Rate 87 08/06/24 09:52 Respiratory Rate 16 08/06/24 09:52 Blood Pressure 115/81 08/06/24 09:52 Pulse Oximetry 99 08/06/24 09:52 Oxygen Delivery Room Air 08/06/24 09:52 Reviewed Medical Decision Making MDM Narrative Medical decision making narrative: UA normal. Patient has declined ER transfer. Would like to call her PCP on Thursday. Strict ED precautions given if symptoms worsen. Differential Diagnosis Differential Diagnosis: Low back strain, ovarian cyst, appendicitis, constipation, diverticulitis Vital Signs Vital Signs: Vital Signs Temperature 97.3 F L 08/06/24 09:52 Pulse Rate 87 08/06/24 09:52 Respiratory Rate 16 08/06/24 09:52 Blood Pressure 115/81 08/06/24 09:52 Pulse Oximetry 99 08/06/24 09:52 Oxygen Delivery Room Air 08/06/24 09:52 Temperature 97.3 F L 08/06/24 09:52 Pulse Rate 87 08/06/24 09:52 Respiratory Rate 16 08/06/24 09:52 Blood Pressure 115/81 08/06/24 09:52 Pulse Oximetry 99 08/06/24 09:52 Oxygen Delivery Room Air 08/06/24 09:52 Lab Data Lab results reviewed: Yes I reviewed the patient's lab results. Labs: Lab Results 08/06/24 Range/Units 10:25 POC Urine Color Yellow POC Urine Clarity Clear POC Urine pH 6.0 POC Ur Specif [place] 1.025 POC Urine Protein Negative (Negative) POC Ur Glucose (UA) Negative (Negative) POC Urine Ketones Negative (Negative) POC Urine Blood Negative (Negative) POC Urine Nitrite Negative (Negative) POC Urine Bilirubin Negative (Negative) POC Urine Urobilinogen 0.2 POC U Leukocyte Esteras Negative (Negative) Critical Care Time Critical Care Time Critical Care Time: No Discharge Plan Discharge Clinical Impression: Abdominal pain, LLQ Patient Disposition: Home, Self-Care Condition: Stable Instructions: Abdominal Pain (ED) Additional Instructions: You have declined transfer to the ER today for further evaluation. As discussed, if any of your symptoms worsen over the weekend to include but not limited to: Fever, nausea or vomiting, sweats or chills, worsening pain, please seek further treatment in the ER. Your blood pressure was elevated above 120/80 today at Urgent Care. This puts you above the threshold for follow up. Please schedule a followup visit with your personal physician as soon as possible, for further evaluation and treatment. Even blood pressure exceeding 120/80 may indicate pre-hypertension. Patient Language: Serbian Prescriptions: No Action Saccharomyces boulardii [Daily Probiotic (S. boulardii)] 250 mg capsule 250 mg PO BID Follow-up/Referrals: Evert,TREVOR Powell [Primary Care Provider] - Time of Disposition: 10:39
[2024-08-06 10:27] LABS: EDUAAPPEAR Clear; EDUABILI Negative (Negative); EDUABLOOD Negative (Negative); EDUACOLOR1 Yellow; EDUAGLUCOSE Negative (Negative); EDUAKETONE Negative (Negative); EDUALEUKO Negative (Negative); EDUANITRATE Negative (Negative); EDUAPROTEIN Negative (Negative); EDUASPGRAVITY 1.025; EDUAUROBILI 0.2
== END 2024-08-06 10:42 | disposition home or self-care (01) ==
PROVIDERS: Emergency Provider Nurse Practitioner; PCP Physician Assistant
DX: R10.32 Left lower quadrant pain (principal); Z87.891 Personal history of nicotine dependence
CPT/HCPCS: 81003; 99213; G0463

== ENCOUNTER 2024-09-02 07:46 | Outpatient (CLI) | payer OTHER, SELFPAY ==
--- NOTE | ~2024-09-02 | MM_ITS ---
EXAMINATION: MM screening michael BI w robi HISTORY: Screening TECHNIQUE: Craniocaudal and mediolateral oblique 3-D tomosynthesis images were obtained and synthetic 2-D images were generated. CAD analysis was submitted and interpreted. COMPARISON: No prior mammogram is available for comparison at this institution. BREAST PARENCHYMAL COMPOSITION: Dense: The breasts are heterogeneously dense, which may obscure small masses FINDINGS: There is no evidence of suspicious mass, calcification, or architectural distortion to sugg est malignancy in either breast. There has been no suspicious interval change. IMPRESSION: 1. No mammographic evidence of malignancy. 2. Recommend routine screening mammography in one year. BI-RADS Category 1: Negative Reviewed, dictated and finalized at location A.
--- OUTSIDE RECORDS SUMMARY | 2024-09-02 07:50 | XMS_ITS | Clinical Summary ---
Author Organization [facility] Address [address] [place] [address] Care Team Providers Care Director Federal Name Role Phone Mari Shields MD Primary Care Provider [phone] [facility] [employer],non-owned Affiliates and Associated Physician Practices is amultiple site organization consisting of ambulatory clinics and hospital sitesin [place], [place], [place] and [place]. This disclosure is being madepursuant to the Care Everywhere program and may not contain all information available regarding this patient. Last updated [facility] [employer] Allergies No known active allergies Medications * Be aware that medications may not be up to date on this document. Alwaysverify current medications with the patient. Cholecalciferol (VITAMIN D3) 24771 UNITS TABS Active Social History Tobacco Use Types Packs/Day Years Used Date Smoking Tobacco: Never Assessed Comments Unknown Sex and Gender Information Value Date Recorded Sex Assigned at Not on file Legal Sex Female 5:36 AM HAND SCRAPER Gender Identity Not on file Sexual Orientation Not on file Last Filed Vital Signs Vital Sign Reading Time Taken Comments Blood Pressure 108/78 06/26/2016 10:36 AM HAND SCRAPER Pulse 84 06/26/2016 10:36 AM HAND SCRAPER Temperature 36.1 C (96.9 F) 06/26/2016 10:36 AM HAND SCRAPER Respiratory Rate - - Oxygen Saturation - - Inhaled Oxygen Concentration - - Weight 79.7 kg (175 lb 9.6 oz) 06/26/2016 10:36 AM HAND SCRAPER Height 167.6 cm (5' 6 ) 06/26/2016 10:36 AM HAND SCRAPER Body Mass Index 28.34 06/26/2016 10:36 AM HAND SCRAPER Plan of Treatment Health Maintenance Due Date Last Done Comments PAP SMEAR 1989 HIV SCREENING 2004 HEPATITIS C SCREENING 06/07/2007 DTAP/TDAP/TD VACCINES (1 - Tdap) 2008 HEPATITIS B VACCINE (1 of 3 - 19+ 3-dose series) 2008 COVID-19 VACCINE (1 - 2023-2 5 season) 2024 DEPRESSION SCREENING 05/04/2024 INFLUENZA VACCINE (Season Ended) 2025 ZOSTER VACCINE (1 of 2) 2039 HIB VACCINE Aged Out No longer eligi ble based on patient's age to complete this topic HPV VACCINE Aged Out No longer eligi ble based on patient's age to complete this topic MENINGOCOCCAL (Group B) VACC INE SHARED DECISION-MAKING Aged Out No longer eligibl e based on patient's age to complete this topic MENINGOCOCCAL GROUPS A/C/Y/W VACCINE Aged Out No longer eligible b ased on patient's age to complete this topic PNEUMOCOCCAL VACCINE Aged Out No long er eligible based on patient's age to complete this topic Insurance [employer] SELF PAY NO INSURANCE Member Subscriber Plan / Payer (Ef fective for All Dates) Name:Hanh Bridges R Member ID:Not on file Relation to Subscriber:Not on file Name:HANH BRIDGES Subscriber ID:Not on file (Home) Address: [address] [place] [id number] Payer ID:Not on file Group ID:Not on file Type:Self Pay Address: [facility] SELF PAY NO INSURANCE Member Subscriber Plan / Payer (Ef fective for All Dates) Name:Hanh Bridges R Member ID:Not on file Relation to Subscriber:Not on file Name:HANH BRIDGES Subscriber ID:Not on file (Home) Address: [address] [place] [phone] Payer ID:Not on file Group ID:Not on file Type:Self Pay Address: [place], [place] [employer] SELF PAY NO INSURANCE Member Subscriber Plan / Payer (Ef fective for All Dates) Name:Hanh Bridges R Member ID:Not on file Relation to Subscriber:Not on file Name:JALENHANH Subscriber ID:Not on file (Home) Address: [address] [place] [address] Payer ID:Not on file Group ID:Not on file Type:Self Pay Address: [place], [place] [employer] Care Teams Director Federal Relationship Specialty Start Date End Date Mari Shields MD [address] [id number] PCP - General 12/28/18
--- OUTSIDE RECORDS SUMMARY | 2024-09-02 07:50 | XMS_ITS | Data Portability ---
Author Organization [place] [facility], Main Office Address [address] [place] [address] Care Team Providers Care Supervisor Endless Track Vehicle Name Role Phone NIKOLAY COLE Primary Care Provider Assessment No assessment recorded. Plan of Treatment Reminders Order Date Submit Date Provider Last Modified By Organization Details Last Modified Time Details Appointments None recorded. Lab TSH + free T4, serum 2022 023 imbookin (Pogby) [facility], [address], [place], [address], 3 07:43:28 lipid panel, serum 2022 023 imbookin (Pogby) [facility], [address], [address], [place], [address], 3 07:43:30 CBC w/ auto diff 2022 023 imbookin (Pogby) [facility], [address], [place], [address], 3 07:43:32 CMP, serum or plasma 2022 023 imbookin (Pogby) [facility], [address], [place], [address], 3 07:43:30 HbA1c (hemoglobin A1c), blood 2022 023 imbookin (Pogby) [facility], [address], [place], [address], 3 07:43:31 Referral None recorded. Procedures None recorded. Surgeries None recorded. Imaging None recorded. Medication Orders Wegovy 0.25 mg/0.5 mL subcutaneou s pen injector 2022 023 [facility][id number], [address], [id number], 3 11:13:37 prednisone 50 mg tablet [address] [facility][id number], [address] [address], [place], [place], [id number], 3 14:36:26 codeine 10 mg-guaifene sin 100 mg/5 mL oral liquid [address] [employer] [facility] #[id number], [address], [id number], 3 14:36:23 Patient TargetsNo targets recorded. Patient InstructionsNo instructions recorded. Reason for Referral None Reported. Results Created Date Observation Date Name Description Value Unit Range Abnormal Flag Note LastModifiedBy Organization Detail LastModifiedTime 09/28/19 22 10/02/2021 CULTU RE, URINE , ROUTI NE culture, urine, routine abnormal CULTU RE, URINE , ROUTI NE Micro Numbe r: [id number] Test Statu s: Final Speci men [...] of pregn ant women . Not Available [address] [address] [place], [address], 10/02/2021 17:21:59 09/28/19 22 10/02/2021 REFLE XIVE URINE CULTU RE reflexive urine culture CULTU RE INDIC ATED - RESUL TS TO FOLLO W Not Available [address] [place], [address], 10/02/2021 17:21:59 09/28/19 22 10/02/2021 URINA LYSIS , COMPL ETE W/REF KARL TO CULTU RE color yellow yellow normal Not Available [address] [place], [address], 10/02/2021 17:21:58 09/28/19 22 10/02/2021 URINA LYSIS , COMPL ETE W/REF KARL TO CULTU RE appearance clear clear normal Not Available [address], [address], 10/02/2021 17:21:58 09/28/19 22 10/02/2021 URINA LYSIS , COMPL ETE W/REF KARL TO CULTU RE specific gravity 1.025 1.001- 1.035 normal Not Available [address], [address], 10/02/2021 17:21:58 09/28/19 22 10/02/2021 URINA LYSIS , COMPL ETE W/REF KARL TO CULTU RE pH < or = 5.0 5.0-8. 0 normal Not Available [address] [place], [address], 10/02/2021 17:21:58 09/28/19 22 10/02/2021 URINA LYSIS , COMPL ETE W/REF KARL TO CULTU RE glucose negati ve negati ve normal Not Available [address], [address], 10/02/2021 17:21:58 09/28/19 22 10/02/2021 URINA LYSIS , COMPL ETE W/REF KARL TO CULTU RE bilirubin negati ve negati ve normal Not Available [address], [address], 10/02/2021 17:21:58 09/28/19 22 10/02/2021 URINA LYSIS , COMPL ETE W/REF KARL TO CULTU RE ketones negati ve negati ve normal Not Available [address] [place], [address], 10/02/2021 17:21:58 09/28/19 22 10/02/2021 URINA LYSIS , COMPL ETE W/REF KARL TO CULTU RE occult blood negati ve negati ve normal Not Available [facility] [address], [address], 10/02/2021 17:21:58 09/28/19 22 10/02/2021 URINA LYSIS , COMPL ETE W/REF KARL TO CULTU RE protein negati ve negati ve normal Not Available [facility] [address], [address], 10/02/2021 17:21:58 09/28/19 22 10/02/2021 URINA LYSIS , COMPL ETE W/REF KARL TO CULTU RE nitrite negati ve negati ve normal Not Available [facility] [address], [address], 10/02/2021 17:21:58 09/28/19 22 10/02/2021 URINA LYSIS , COMPL ETE W/REF KARL TO CULTU RE leukocyte esterase trace negati ve abnormal Not Available [address], [address], 10/02/2021 17:21:58 09/28/19 22 10/02/2021 URINA LYSIS , COMPL ETE W/REF KARL TO CULTU RE WBC 0-5 /hpf < or = 5 normal Not Available [address], [address], 10/02/2021 17:21:58 09/28/19 22 10/02/2021 URINA LYSIS , COMPL ETE W/REF KARL TO CULTU RE RBC none seen /hpf < or = 2 normal Not Available [address], [address], 10/02/2021 17:21:58 09/28/19 22 10/02/2021 URINA LYSIS , COMPL ETE W/REF KARL TO CULTU RE squamous epithelial cells 6-10 /hpf < or = 5 abnormal Not Available [address], [address], 10/02/2021 17:21:58 09/28/19 22 10/02/2021 URINA LYSIS , COMPL ETE W/REF KARL TO CULTU RE bacteria none seen /hpf none seen normal Not Available [address], [address], 10/02/2021 17:21:58 09/28/19 22 10/02/2021 URINA LYSIS , COMPL ETE W/REF KARL TO CULTU RE hyaline cast none seen /lpf none seen normal Not Available [address], [address], 10/02/2021 17:21:58 09/28/19 22 10/02/2021 CBC (INCL UDES DIFF/ PLT) white blood cell count 7.7 thous and/u L 3.8-10 .8 normal Not Available [address], [address], 10/02/2021 17:21:57 09/28/19 22 10/02/2021 CBC (INCL UDES DIFF/ PLT) red blood cell count 4.49 liborio on/uL 3.80-5 .10 normal Not Available [address], [address], 10/02/2021 17:21:57 09/28/19 22 10/02/2021 CBC (INCL UDES DIFF/ PLT) hemoglobin 14.1 g/dL 11.7-1 5.5 normal Not Available [address], [address], 10/02/2021 17:21:57 09/28/19 22 10/02/2021 CBC (INCL UDES DIFF/ PLT) hematocrit 42.0 % 35.0-4 5.0 normal Not Available [address], [address], 10/02/2021 17:21:57 09/28/19 22 10/02/2021 CBC (INCL UDES DIFF/ PLT) MCV 93.5 fL 80.0-1 00.0 normal Not Available [address], [address], 10/02/2021 17:21:57 09/28/19 22 10/02/2021 CBC (INCL UDES DIFF/ PLT) MCH 31.4 pg 27.0-3 3.0 normal Not Available [address], [address], 10/02/2021 17:21:57 09/28/19 22 10/02/2021 CBC (INCL UDES DIFF/ PLT) MCHC 33.6 g/dL 32.0-3 6.0 normal Not Available [address], [address], 10/02/2021 17:21:57 09/28/19 22 10/02/2021 CBC (INCL UDES DIFF/ PLT) RDW 12.3 % 11.0-1 5.0 normal Not Available [address], [address], 10/02/2021 17:21:57 09/28/19 22 10/02/2021 CBC (INCL UDES DIFF/ PLT) platelet count 234 thous and/u L 140-40 0 normal Not Available [address], [address], 10/02/2021 17:21:57 09/28/19 22 10/02/2021 CBC (INCL UDES DIFF/ PLT) MPV 10.8 fL 7.5-12 .5 normal Not Available [address], [address], 10/02/2021 17:21:57 09/28/19 22 10/02/2021 CBC (INCL UDES DIFF/ PLT) absolute neutrophils 5121 cells /uL 1500-7 800 normal Not Available [address], [address], 10/02/2021 17:21:57 09/28/19 22 10/02/2021 CBC (INCL UDES DIFF/ PLT) absolute lymphocytes 2017 cells /uL 850-39 00 normal Not Available [address], [address], 10/02/2021 17:21:57 09/28/19 22 10/02/2021 CBC (INCL UDES DIFF/ PLT) absolute monocytes 439 cells /uL 200-95 0 normal Not Available [address], [address], 10/02/2021 17:21:57 09/28/19 22 10/02/2021 CBC (INCL UDES DIFF/ PLT) absolute eosinophils 69 cells /uL 15-500 normal Not Available [address], [address], 10/02/2021 17:21:57 09/28/19 22 10/02/2021 CBC (INCL UDES DIFF/ PLT) absolute basophils 54 cells /uL 0-200 normal Not Available [address], [address], 10/02/2021 17:21:57 09/28/19 22 10/02/2021 CBC (INCL UDES DIFF/ PLT) neutrophils 66.5 % normal Not Available [address], [address], 10/02/2021 17:21:57 09/28/19 22 10/02/2021 CBC (INCL UDES DIFF/ PLT) lymphocytes 26.2 % normal Not Available [address], [address], 10/02/2021 17:21:57 09/28/19 22 10/02/2021 CBC (INCL UDES DIFF/ PLT) monocytes 5.7 % normal Not Available [address], [address], 10/02/2021 17:21:57 09/28/19 22 10/02/2021 CBC (INCL UDES DIFF/ PLT) eosinophils 0.9 % normal Not Available [facility] [address], [address], 10/02/2021 17:21:57 09/28/19 22 10/02/2021 CBC (INCL UDES DIFF/ PLT) basophils 0.7 % normal Not Available [facility] [address], [address], 10/02/2021 17:21:57 09/28/19 22 10/02/2021 HEMOG LOBIN [...] Care in Diabe lamin(A DA). Not Available [address] [address] [place], [address], 10/02/2021 17:21:57 09/28/19 22 10/02/2021 COMPR EHENS HALI METAB OLIC PANEL glucose 81 mg/dL 65-99 normal Fasti ng refer ence inter bernice Not Available [facility] [address] [address] [place], [address], 10/02/2021 17:21:56 09/28/19 22 10/02/2021 COMPR EHENS HALI METAB OLIC PANEL urea nitrogen (BUN) 22 mg/dL 7-25 normal Not Available [facility] [address] [address] [place], [address], 10/02/2021 17:21:56 09/28/19 22 10/02/2021 COMPR EHENS HALI METAB OLIC PANEL creatinine 0.69 mg/dL 0.50-1 .10 normal Not Available [facility] [address] [address] [place], [address], 10/02/2021 17:21:56 09/28/19 22 10/02/2021 COMPR EHENS HALI METAB OLIC PANEL eGFR non-afr. tajik 115 mL/mi n/1.7 3m2 > or = 60 normal Not Available [address], [address], 10/02/2021 17:21:56 09/28/19 22 10/02/2021 COMPR EHENS HALI METAB OLIC PANEL eGFR 134 mL/mi n/1.7 3m2 > or = 60 normal Not Available [address], [address], 10/02/2021 17:21:56 09/28/19 22 10/02/2021 COMPR EHENS HALI METAB OLIC PANEL BUN/creatini ne ratio not applic able (calc ) 6-22 Not Available [address], [address], 10/02/2021 17:21:56 09/28/19 22 10/02/2021 COMPR EHENS HALI METAB OLIC PANEL sodium 139 mmol/ L 135-14 6 normal Not Available [address], [address], 10/02/2021 17:21:56 09/28/19 22 10/02/2021 COMPR EHENS HALI METAB OLIC PANEL potassium 4.4 mmol/ L 3.5-5. 3 normal Not Available [address], [address], 10/02/2021 17:21:56 09/28/19 22 10/02/2021 COMPR EHENS HALI METAB OLIC PANEL chloride 107 mmol/ L 98-110 normal Not Available [address], [address], 10/02/2021 17:21:56 09/28/19 22 10/02/2021 COMPR EHENS HALI METAB OLIC PANEL carbon dioxide 25 mmol/ L 20-32 normal Not Available [address], [address], 10/02/2021 17:21:56 09/28/19 22 10/02/2021 COMPR EHENS HALI METAB OLIC PANEL calcium 9.6 mg/dL 8.6-10 .2 normal Not Available [address], [address], 10/02/2021 17:21:56 09/28/19 22 10/02/2021 COMPR EHENS HALI METAB OLIC PANEL protein, total 6.7 g/dL 6.1-8. 1 normal Not Available [address], [address], 10/02/2021 17:21:56 09/28/19 22 10/02/2021 COMPR EHENS HALI METAB OLIC PANEL albumin 4.4 g/dL 3.6-5. 1 normal Not Available [address], [address], 10/02/2021 17:21:56 09/28/19 22 10/02/2021 COMPR EHENS HALI METAB OLIC PANEL globulin 2.3 g/dL_ (calc ) 1.9-3. 7 normal Not Available [address], [address], 10/02/2021 17:21:56 09/28/19 22 10/02/2021 COMPR EHENS HALI METAB OLIC PANEL albumin/glob ulin ratio 1.9 (calc ) 1.0-2. 5 normal Not Available [address], [address], 10/02/2021 17:21:56 09/28/19 22 10/02/2021 COMPR EHENS HALI METAB OLIC PANEL bilirubin, total 0.7 mg/dL 0.2-1. 2 normal Not Available [facility] [address] [address], [place], [address], 10/02/2021 17:21:56 09/28/19 22 10/02/2021 COMPR EHENS HALI METAB OLIC PANEL alkaline phosphatase 56 U/L 31-125 normal Not Available [address], [address], 10/02/2021 17:21:56 09/28/19 22 10/02/2021 COMPR EHENS HALI METAB OLIC PANEL AST 20 U/L 10-30 normal Not Available [address], [address], 10/02/2021 17:21:56 09/28/19 22 10/02/2021 COMPR EHENS HALI METAB OLIC PANEL ALT 21 U/L 6-29 normal Not Available [address], [address], 10/02/2021 17:21:56 09/28/19 22 10/02/2021 LIPID PANEL WITH RATIO S cholesterol, total 146 mg/dL <200 normal Not Available [address], [address], 10/02/2021 17:21:56 09/28/19 22 10/02/2021 LIPID PANEL WITH RATIO S HDL cholesterol 60 mg/dL > or = 50 normal Not Available [address], [address], 10/02/2021 17:21:56 09/28/19 22 10/02/2021 LIPID PANEL WITH RATIO S triglyceride s 84 mg/dL <150 normal Not Available [address], [address], 10/02/2021 17:21:56 09/28/19 22 10/02/2021 LIPID PANEL [...] 310(1 9): 2061- 206 (http ://ed [email or web address] [email or web address]. [employer]/f aq/FA Q164) Not Available [facility] [address], [address], 10/02/2021 17:21:56 09/28/19 22 10/02/2021 LIPID PANEL WITH RATIO S chol/HDLC ratio 2.4 (calc ) <5.0 normal Not Available [facility] [address], [address], 10/02/2021 17:21:56 09/28/19 22 10/02/2021 LIPID PANEL WITH RATIO S LDL/HDL ratio 1.2 (calc ) Below avera ge Risk: <2.34 Nisula ge Risk: 2.35- 4.12 Moder ate Risk: 4.13- 5.56 High Risk: >5.57 Not Available [facility] [address], [address], 10/02/2021 17:21:56 09/28/19 22 10/02/2021 LIPID PANEL WITH RATIO S non HDL cholesterol 86 mg/dL _(erika c) <130 normal For patie nts with diabe lamin plus 1 major ASCVD risk facto r, treat ing to a non-H DL-C goal of <100 mg/dL (LDL- C of <70 mg/dL ) is raquel sandersono n. Not Available [facility] [id number] [place] [address], [address], 10/02/2021 17:21:56 09/28/19 22 10/02/2021 TSH+F REE T4 TSH 1.04 mIU/L normal Refer ence Range > or = 20 Years 0.40- 4.50 Pregn alexi Range s First trime ster 0.26- 2.66 Secon d trime ster 0.55- 2.73 Third trime ster 0.43- 2.91 Not Available [facility] [address] [address] [place], [address], 10/02/2021 17:21:55 09/28/19 22 10/02/2021 TSH+F REE T4 T4, free 1.0 NG/dL 0.8-1. 8 normal Not Available [address] [address] [place], [address], 10/02/2021 17:21:55 09/28/19 22 10/02/2021 INTER PRETA [...] for clini erika purpo ses. Not Available [address] [address] [place], [address], 10/02/2021 17:21:54 09/28/19 22 10/02/2021 FOOD ALLER GY PROFI LE WITH REFLE XES egg white (F1) IgE <0.10 kU/L normal Not Available [facility] [address] [address] [place], [address], 10/02/2021 17:21:54 09/28/19 22 10/02/2021 FOOD ALLER GY PROFI LE WITH REFLE XES class 0 Not Available [facility] [address] [address] [place], [address], 10/02/2021 17:21:54 09/28/19 22 10/02/2021 FOOD ALLER GY PROFI LE WITH REFLE XES peanut (F13) IgE <0.10 kU/L normal Not Available [address] [address] [place], [address], 10/02/2021 17:21:54 09/28/19 22 10/02/2021 FOOD ALLER GY PROFI LE WITH REFLE XES class 0 Not Available [facility] [address] [address] [place], [address], 10/02/2021 17:21:54 09/28/19 22 10/02/2021 FOOD ALLER GY PROFI LE WITH REFLE XES wheat (F4) IgE <0.10 kU/L normal Not Available [facility] [address] [address] [place], [address], 10/02/2021 17:21:54 09/28/19 22 10/02/2021 FOOD ALLER GY PROFI LE WITH REFLE XES class 0 Not Available [facility] [address] [address] [place], [address], 10/02/2021 17:21:54 09/28/19 22 10/02/2021 FOOD ALLER GY PROFI LE WITH REFLE XES walnut (F256) IgE <0.10 kU/L normal Not Available [address], [address], 10/02/2021 17:21:54 09/28/19 22 10/02/2021 FOOD ALLER GY PROFI LE WITH REFLE XES class 0 Not Available [address], [address], 10/02/2021 17:21:54 09/28/19 22 10/02/2021 FOOD ALLER GY PROFI LE WITH REFLE XES codfish (F3) IgE <0.10 kU/L normal Not Available [address], [address], 10/02/2021 17:21:54 09/28/19 22 10/02/2021 FOOD ALLER GY PROFI LE WITH REFLE XES class 0 Not Available [address], [address], 10/02/2021 17:21:54 09/28/19 22 10/02/2021 FOOD ALLER GY PROFI LE WITH REFLE XES cow's milk (F2) IgE <0.10 kU/L normal Not Available [address], [address], 10/02/2021 17:21:54 09/28/19 22 10/02/2021 FOOD ALLER GY PROFI LE WITH REFLE XES class 0 Not Available [address], [address], 10/02/2021 17:21:54 09/28/19 22 10/02/2021 FOOD ALLER GY PROFI LE WITH REFLE XES soybean (F14) IgE <0.10 kU/L normal Not Available [facility] [id number] [place], [address], 10/02/2021 17:21:54 09/28/19 22 10/02/2021 FOOD ALLER GY PROFI LE WITH REFLE XES class 0 Not Available [address], [address], 10/02/2021 17:21:54 09/28/19 22 10/02/2021 FOOD ALLER GY PROFI LE WITH REFLE XES shrimp (F24) IgE <0.10 kU/L normal Not Available [address], [address], 10/02/2021 17:21:54 09/28/19 22 10/02/2021 FOOD ALLER GY PROFI LE WITH REFLE XES class 0 Not Available [address], [address], 10/02/2021 17:21:54 09/28/19 22 10/02/2021 FOOD ALLER GY PROFI LE WITH REFLE XES scallop (F338) IgE <0.10 kU/L normal Not Available [address], [address], 10/02/2021 17:21:54 09/28/19 22 10/02/2021 FOOD ALLER GY PROFI LE WITH REFLE XES class 0 Not Available [address], [address], 10/02/2021 17:21:54 09/28/19 22 10/02/2021 FOOD ALLER GY PROFI LE WITH REFLE XES sesame seed (F10) IgE <0.10 kU/L normal Not Available [address], [address], 10/02/2021 17:21:54 09/28/19 22 10/02/2021 FOOD ALLER GY PROFI LE WITH REFLE XES class 0 Not Available [address] [place], [address], 10/02/2021 17:21:54 09/28/19 22 10/02/2021 FOOD ALLER GY PROFI LE WITH REFLE XES hazelnut (F17) IgE <0.10 kU/L normal Not Available [address], [address], 10/02/2021 17:21:54 09/28/19 22 10/02/2021 FOOD ALLER GY PROFI LE WITH REFLE XES class 0 Not Available [facility] [address], [address], 10/02/2021 17:21:54 09/28/19 22 10/02/2021 FOOD ALLER GY PROFI LE WITH REFLE XES cashew nut (F202) IgE <0.10 kU/L normal Not Available [address], [address], 10/02/2021 17:21:54 09/28/19 22 10/02/2021 FOOD ALLER GY PROFI LE WITH REFLE XES class 0 Not Available [address], [address], 10/02/2021 17:21:54 09/28/19 22 10/02/2021 FOOD ALLER GY PROFI LE WITH REFLE XES almond (F20) IgE <0.10 kU/L normal Not Available [facility] [address], [address], 10/02/2021 17:21:54 09/28/19 22 10/02/2021 FOOD ALLER GY PROFI LE WITH REFLE XES class 0 Not Available [facility] [address], [address], 10/02/2021 17:21:54 09/28/19 22 10/02/2021 FOOD ALLER GY PROFI LE WITH REFLE XES salmon (F41) IgE <0.10 kU/L normal Not Available [facility] [address], [address], 10/02/2021 17:21:54 09/28/19 22 10/02/2021 FOOD ALLER GY PROFI LE WITH REFLE XES class 0 Not Available [facility] [address], [address], 10/02/2021 17:21:54 09/28/19 22 10/02/2021 FOOD ALLER GY PROFI LE WITH REFLE XES tuna (F40) IgE <0.10 kU/L normal Not Available [facility] [address], [address], 10/02/2021 17:21:54 09/28/19 22 10/02/2021 FOOD ALLER GY PROFI LE WITH REFLE XES class 0 Not Available [address], [address], 10/02/2021 17:21:54 09/28/19 22 10/02/2021 SHAYE C [...] ce of DQ2 or DQ8. Not Available [facility] [address], [address], 10/02/2021 17:21:53 09/28/19 22 10/02/2021 SHAYE C DISEA SE COMPR EHENS HALI PANEL tissue transglutami nase Ab, IgA <1.0 U/mL normal Value Inter preta tion ----- ----- ----- ---- <15.0 Antib stephanie not detec malaika > or = 15.0 Antib stephanie detec malaika Not Available [facility] [address] [place], [address], 10/02/2021 17:21:53 09/28/19 22 10/02/2021 SHAYE C DISEA SE COMPR EHENS HALI PANEL immunoglobul in A 269 mg/dL 47-[address] [facility] [address] [place], [address], 10/02/2021 17:21:53 10/12/19 22 10/11/2021 urina lysis , dipst ick Leukocytes (reference range: negative ninfa/ l) Negati ve Not Available [facility] [place] [address], [place], [address], 10/11/2021 14:37:11 10/12/19 22 10/11/2021 urina lysis , dipst ick Nitrite (reference rage: negative mg/dl) negati ve Not Available [facility] [place] [address], [place], [address], 10/11/2021 14:37:11 10/12/19 22 10/11/2021 urina lysis , dipst ick Urobilinogen (reference range: 0.2-1 mg/dl) 0.2 Not Available [facility] [place] [address], [place], [address], 10/11/2021 14:37:11 10/12/19 22 10/11/2021 urina lysis , dipst ick Protein (reference range: negative mg/dl) Negati ve Not Available [facility] [place] [address], [place], [address], 10/11/2021 14:37:11 10/12/19 22 10/11/2021 urina lysis , dipst ick pH (reference range: 5-7) 5.5 Not Available [facility] [place] [address], [place], [address], 10/11/2021 14:37:11 10/12/19 22 10/11/2021 urina lysis , dipst ick Blood (reference range: negative Gage/ l) Non-He molyze d: Trace Not Available [facility] [place] [address], [place], [address], 10/11/2021 14:37:11 10/12/19 22 10/11/2021 urina lysis , dipst ick Specific Cornell (reference range: 1.005-1.030) 1.020 Not Available [facility] [place] [address], [place], [address], 10/11/2021 14:37:11 10/12/19 22 10/11/2021 urina lysis , dipst ick Ketone (reference range: negative mg/dl) Negati ve Not Available [facility] [place] [address], [place], [address], 10/11/2021 14:37:11 10/12/19 22 10/11/2021 urina lysis , dipst ick Bilirubin (reference range: negative mg/dl) Negati ve Not Available [facility] [place] [address], [place], [address], 10/11/2021 14:37:11 10/12/19 22 10/11/2021 urina lysis , dipst ick Glucose (reference range: negative mg/dl) Negati ve Not Available [facility] [address], [place], [address], 10/11/2021 14:37:11 10/12/19 22 10/11/2021 urina lysis , dipst ick Appearance Clear Not Available [facility] [address], [place], [address], 10/11/2021 14:37:11 10/12/19 22 10/11/2021 urina lysis , dipst ick Color Yellow Not Available [facility] [address], [place], [address], 10/11/2021 14:37:11 10/16/1910/16/2022 TSH+F REE T4 TSH 0.95 mIU/L normal Refer ence Range > or = 20 Years 0.40- 4.50 Pregn alexi Range s First trime ster 0.26- 2.66 Secon d trime ster 0.55- 2.73 Third trime ster 0.43- 2.91 Not Available X [facility] [address] [address] [place], [address], 10/16/2022 07:43:28 10/16/1910/16/2022 TSH+F REE T4 T4, free 1.0 NG/dL 0.8-1. 8 normal Not Available [facility] [address] [place], [address], 10/16/2022 07:43:28 10/16/1910/16/2022 LIPID PANEL WITH RATIO S cholesterol, total 139 mg/dL <200 normal Not Available [facility] [address] [place], [address], 10/16/2022 07:43:30 10/16/19 23 10/16/2022 LIPID PANEL WITH RATIO S HDL cholesterol 54 mg/dL > or = 50 normal Not Available X BODY [facility] [address] [place], [address], 10/16/2022 07:43:30 10/16/1910/16/2022 LIPID PANEL WITH RATIO S triglyceride s 108 mg/dL <150 normal Not Available [facility] [address] [place], [address], 10/16/2022 07:43:30 10/16/1910/16/2022 LIPID PANEL WITH RATIO [...] 2061- 2068 (http ://ed ucati on.Qu Heather Acoustice[employer]. com/f aq/FA Q164) Not Available X B[facility] [address] [place], [address], 10/16/2022 07:43:30 10/16/1910/16/2022 LIPID PANEL WITH RATIO S chol/HDLC ratio 2.6 (calc ) <5.0 normal Not Available X B[facility] [address] [place], [address], 10/16/2022 07:43:30 10/16/1910/16/2022 LIPID PANEL WITH RATIO S LDL/HDL ratio 1.2 (calc ) Below avera ge Risk: <2.34 Nisula ge Risk: 2.35- 4.12 Moder ate Risk: 4.13- 5.56 High Risk: >5.57 Not Available [address] [address] [place], [address], 10/16/2022 07:43:30 10/16/19 23 10/16/2022 LIPID PANEL WITH RATIO S non HDL cholesterol 85 mg/dL _(erika c) <130 normal For patie nts with diabe lamin plus 1 major ASCVD risk facto r, treat ing to a non-H DL-C goal of <100 mg/dL (LDL- C of <70 mg/dL ) is consi dered a thera peuti c optio n. Not Available [address] [address] [place], [address], 10/16/2022 07:43:30 10/16/19 23 10/16/2022 COMPR EHENS HALI METAB OLIC PANEL glucose 90 mg/dL 65-99 normal Fasti ng refer ence inter bernice Not Available [address], [place], [address], 10/16/2022 07:43:30 10/16/19 23 10/16/2022 COMPR EHENS HALI METAB OLIC PANEL urea nitrogen (BUN) 16 mg/dL 7-25 normal Not Available [facility] [address] [address] [place], [address], 10/16/2022 07:43:30 10/16/19 23 10/16/2022 COMPR EHENS HALI METAB OLIC PANEL creatinine 0.67 mg/dL 0.50-0 .97 normal Not Available [address] [address] [place], [address], 10/16/2022 07:43:30 10/16/1910/16/2022 COMPR EHENS HALI METAB [...] kdoqi /gfr% 5Fcal culat or Not Available [address], [address], 10/16/2022 07:43:30 10/16/19 23 10/16/2022 COMPR EHENS HALI METAB OLIC PANEL BUN/creatini ne ratio NOT APPLIC ABLE (calc ) 6-22 Not Available [address], [address], 10/16/2022 07:43:30 10/16/19 23 10/16/2022 COMPR EHENS HALI METAB OLIC PANEL sodium 139 mmol/ L 135-14 6 normal Not Available [address], [address], 10/16/2022 07:43:30 10/16/19 23 10/16/2022 COMPR EHENS HALI METAB OLIC PANEL potassium 4.3 mmol/ L 3.5-5. 3 normal Not Available [address], [address], 10/16/2022 07:43:30 10/16/19 23 10/16/2022 COMPR EHENS HALI METAB OLIC PANEL chloride 107 mmol/ L 98-110 normal Not Available [address], [address], 10/16/2022 07:43:30 10/16/19 23 10/16/2022 COMPR EHENS HALI METAB OLIC PANEL carbon dioxide 27 mmol/ L 20-32 normal Not Available [address], [address], 10/16/2022 07:43:30 10/16/19 23 10/16/2022 COMPR EHENS HALI METAB OLIC PANEL calcium 9.4 mg/dL 8.6-10 .2 normal Not Available [address], [address], 10/16/2022 07:43:30 10/16/19 23 10/16/2022 COMPR EHENS HALI METAB OLIC PANEL protein, total 6.7 g/dL 6.1-8. 1 normal Not Available [address], [address], 10/16/2022 07:43:30 10/16/19 23 10/16/2022 COMPR EHENS HALI METAB OLIC PANEL albumin 4.3 g/dL 3.6-5. 1 normal Not Available [address], [address], 10/16/2022 07:43:30 10/16/19 23 10/16/2022 COMPR EHENS HALI METAB OLIC PANEL globulin 2.4 g/dL_ (calc ) 1.9-3. 7 normal Not Available [address], [address], 10/16/2022 07:43:30 10/16/19 23 10/16/2022 COMPR EHENS HALI METAB OLIC PANEL albumin/glob ulin ratio 1.8 (calc ) 1.0-2. 5 normal Not Available [address], [address], 10/16/2022 07:43:30 10/16/19 23 10/16/2022 COMPR EHENS HALI METAB OLIC PANEL bilirubin, total 0.5 mg/dL 0.2-1. 2 normal Not Available [address], [address], 10/16/2022 07:43:30 10/16/19 23 10/16/2022 COMPR EHENS HALI METAB OLIC PANEL alkaline phosphatase 46 U/L 31-125 normal Not Available [address], [address], 10/16/2022 07:43:30 10/16/19 23 10/16/2022 COMPR EHENS HALI METAB OLIC PANEL AST 17 U/L 10-30 normal Not Available [address] [address] [place], [address], 10/16/2022 07:43:30 10/16/19 23 10/16/2022 COMPR EHENS HALI METAB OLIC PANEL ALT 15 U/L 6-29 normal Not Available [facility] [address] [address] [place], [address], 10/16/2022 07:43:30 10/16/19 23 10/16/2022 HEMOG LOBIN [...] Care in Diabe lamin(A DA). Not Available [facility] [address] [address] [place], [address], 10/16/2022 07:43:31 10/16/19 23 10/16/2022 CBC (INCL UDES DIFF/ PLT) white blood cell count 4.9 thous and/u L 3.8-10 .8 normal Not Available [facility] [id number] [place] [address], [address], 10/16/2022 07:43:32 10/16/19 23 10/16/2022 CBC (INCL UDES DIFF/ PLT) red blood cell count 4.43 liborio on/uL 3.80-5 .10 normal Not Available [address], [address], 10/16/2022 07:43:32 10/16/19 23 10/16/2022 CBC (INCL UDES DIFF/ PLT) hemoglobin 13.5 g/dL 11.7-1 5.5 normal Not Available [address], [address], 10/16/2022 07:43:32 10/16/19 23 10/16/2022 CBC (INCL UDES DIFF/ PLT) hematocrit 40.3 % 35.0-4 5.0 normal Not Available [address], [address], 10/16/2022 07:43:32 10/16/19 23 10/16/2022 CBC (INCL UDES DIFF/ PLT) MCV 91.0 fL 80.0-1 00.0 normal Not Available [address], [address], 10/16/2022 07:43:32 10/16/19 23 10/16/2022 CBC (INCL UDES DIFF/ PLT) MCH 30.5 pg 27.0-3 3.0 normal Not Available [address], [address], 10/16/2022 07:43:32 10/16/19 23 10/16/2022 CBC (INCL UDES DIFF/ PLT) MCHC 33.5 g/dL 32.0-3 6.0 normal Not Available [address], [address], 10/16/2022 07:43:32 10/16/19 23 10/16/2022 CBC (INCL UDES DIFF/ PLT) RDW 12.2 % 11.0-1 5.0 normal Not Available [address], [address], 10/16/2022 07:43:32 10/16/19 23 10/16/2022 CBC (INCL UDES DIFF/ PLT) platelet count 206 thous and/u L 140-40 0 normal Not Available [address], [address], 10/16/2022 07:43:32 10/16/19 23 10/16/2022 CBC (INCL UDES DIFF/ PLT) MPV 10.5 fL 7.5-12 .5 normal Not Available [address], [address], 10/16/2022 07:43:32 10/16/19 23 10/16/2022 CBC (INCL UDES DIFF/ PLT) absolute neutrophils 2960 cells /uL 1500-7 800 normal Not Available [address], [address], 10/16/2022 07:43:32 10/16/19 23 10/16/2022 CBC (INCL UDES DIFF/ PLT) absolute lymphocytes 1504 cells /uL 850-39 00 normal Not Available [address], [address], 10/16/2022 07:43:32 10/16/19 23 10/16/2022 CBC (INCL UDES DIFF/ PLT) absolute monocytes 328 cells /uL 200-95 0 normal Not Available [address], [address], 10/16/2022 07:43:32 10/16/19 23 10/16/2022 CBC (INCL UDES DIFF/ PLT) absolute eosinophils 69 cells /uL 15-500 normal Not Available [address] [place], [address], 10/16/2022 07:43:32 10/16/19 23 10/16/2022 CBC (INCL UDES DIFF/ PLT) absolute basophils 39 cells /uL 0-200 normal Not Available [facility] [address], [address], 10/16/2022 07:43:32 10/16/19 23 10/16/2022 CBC (INCL UDES DIFF/ PLT) neutrophils 60.4 % normal Not Available [facility] [address], [address], 10/16/2022 07:43:32 10/16/19 23 10/16/2022 CBC (INCL UDES DIFF/ PLT) lymphocytes 30.7 % normal Not Available [facility] [address], [address], 10/16/2022 07:43:32 10/16/19 23 10/16/2022 CBC (INCL UDES DIFF/ PLT) monocytes 6.7 % normal Not Available [facility] [address], [address], 10/16/2022 07:43:32 10/16/19 23 10/16/2022 CBC (INCL UDES DIFF/ PLT) eosinophils 1.4 % normal Not Available [facility] [address], [address], 10/16/2022 07:43:32 10/16/19 23 10/16/2022 CBC (INCL UDES DIFF/ PLT) basophils 0.8 % normal Not Available [facility] [address], [address], 10/16/2022 07:43:32 10/15/19 22 10/11/2021 XR, kidne y + urete r + bladd er No observ ation record ed. [id number] , [place], [address], 07/02/2022 06:52:27 Result Notes None recorded. Problems Name Problem SNOMED Code Status Onset Date Resolution Date Notes Provider Name and Address Organization Details Recorded Time Renal angle tendernes s 897818010 Active 2021 Not Available [facility] 3 06:43:37 Irritable bowel syndrome 27002767 Active Not Available [facility] 3 06:43:38 Acne 38264452 Active Not Available [facility] 3 06:43:38 Plantar wart of right foot 69781980755 319870 Active Not Available [facility] 3 06:43:38 Hyperemes is gravidaru m 11906493 Completed Not Available [facility] 3 06:43:38 Anterior chest wall pain 406254393 Active Not Available [facility] 3 06:43:38 Right flank pain 385477618 Active 2021 Not Available [facility] 3 06:43:38 Contusion of coccyx 964484046 Active Not Available [facility] 3 06:43:38 Headache 95162604 Active 2021 Not Available [facility] 3 06:43:38 Thoracic back pain 081213215 Active Not Available [facility] 3 06:43:38 Cramping pain 147053127 Active Not Available [facility] 3 06:43:39 Vaginal discharge problem 464374178 Completed Not Available [facility] 3 06:43:39 Chest pain 37798493 Active Not Available [facility] 3 06:43:39 Right upper quadrant pain 969732571 Active 2021 Not Available [facility] 3 06:43:39 Bronchiti s 81659308 Completed Not Available [facility] 3 06:43:39 Pain in coccyx 60182382 Active Not Available [facility] 3 06:43:39 Uterine size for dates discrepan cy 464052198 Completed Not Available [facility] 3 06:43:39 Anxiety 69954578 Active Not Available [facility] 3 06:43:40 Premenstr ual dysphoric disorder 780473 Active 2021 Not Available [facility] 3 06:43:40 Female stress incontine nce 83246763 Active Not Available [facility] 3 06:43:40 Urinary tract infectiou s disease 48800079 Active 2021 Not Available [facility] 3 06:43:40 83465259 Completed 201711/22/2018 Not Available [facility] 3 06:43:40 Irregular periods 55801675 Completed Not Available [facility] 3 06:43:40 Fatigue 41900615 Active Not Available [facility] 3 06:43:41 Pain in limb 74221751 Active Not Available [facility] 3 06:43:41 Kidney stone 56450316 Active 2021 Not Available [facility] 3 06:43:41 Sore throat 506608613 Active 2022 KENDY Boston null, [facility] 3 09:12:10 Postviral cough 817971201 Active 2022 DELFINO Guallpa [address], [address], [place], [address] , [facility] [employer] [facility] 3 11:53:22 Bee sting 859273111 Active 2022 DELFINO Guallpa [address], [address], [place], [address] , [email or web address] [facility] 3 13:23:12 Lesion of scalp 54693422094 0 Active 2022 DELFINO Guallpa [address], [address], [place], [address] , [facility] [employer] [facility] 3 17:00:17 Generaliz ed anxiety disorder 38272780 Active 2022 DELFINO Guallpa [address], [place], [address] , [facility] 3 22:13:04 Problem Notes None recorded. Procedures Surgical History Date Name Laterality Status Provider Name and Address Organization Details Recorded Time 12/23/19 19 total excision of bilateral fallopian tubes completed Not Available [facility] 07/02/2022 06:39:10 03/09/20 18 Cholecystectomy completed Not Available [facility] 07/02/2022 06:39:10 05/06/19 18 Date of Last Pap Smear completed Not Available [facility] 07/02/2022 06:39:09 01/16/20 17 [employer] Procedure completed Not Available [facility] 07/02/2022 06:39:10 06/22/19 15 [employer]ANT Procedure completed Not Available [facility] 07/02/2022 06:39:10 Imaging Results Imaging Date Name Status LastModified by Organiz ation Details LastModified Time 10/11/2021 XR, kidney + ureter + bladder completed [id number], [place], [address], 07/02/2022 06:52:27 Procedure Notes None recorded. Medical Equipment None Reported. Allergies Allergen ID Allergen Name Allergen Category Reaction Reaction Severity Criticality Documentation Date Start Date Code Code System Note Provider Name and Address Organization Details Recorded Time 10187 acetamino phen / hydrocodo ne medicatio n itching moderate Not available 07/02/2022 01547 2 RxNorm Not Available [facility] 3 06:52:20 90318 acetamino phen / hydrocodo ne medicatio n itching Not available Not available 07/02/2022 08968 2 RxNorm Not Available [facility] 3 06:52:21 46654 Compazine medicatio n Not available Not available Not available 07/02/2022 30707 6 RxNorm tonic jaw/n yusef Not Available [facility] 3 06:52:21 Medications Name Sig Start Date [...] Date Recorded Body mass index (BMI) Body height Oxygen saturation Oxygen saturation in Arterial blood by Pulse oximetry Heart rate Respiratory rate Body temperature Body weight Systolic blood pressure Diastolic blood pressure Provider Name and Address Organization Details Last Updated DateTime 2 27.3 kg/m2 167.64 cm 95 % 95 % 104 /min 16 /min 97.6 [degF] 01602.1 1 g 110 mm[Hg] 70 mm[Hg] Not Available [facility] 3 06:39:38 Date Recorded Body mass index (BMI) Body height Oxygen saturation Oxygen saturation in Arterial blood by Pulse oximetry Heart rate Respiratory rate Body temperature Body weight Systolic blood pressure Diastolic blood pressure Provider Name and Address Organization Details Last Updated DateTime 2 27.1 kg/m2 167.64 cm 99 % 99 % 93 /min 16 /min 97.4 [degF] 38032.5 2 g 112 mm[Hg] 66 mm[Hg] Not Available [facility] 3 06:39:39 Date Recorded Body mass index (BMI) Body height Oxygen saturation Oxygen saturation in Arterial blood by Pulse oximetry Heart rate Respiratory rate Body temperature Body weight Systolic blood pressure Diastolic blood pressure Provider Name and Address Organization Details Last Updated DateTime 2 26.8 kg/m2 167.64 cm 97 % 97 % 104 /min 16 /min 97.3 [degF] 98020.6 1 g 120 mm[Hg] 80 mm[Hg] Not Available [facility] 3 06:39:39 Date Recorded Body height Body temperature Body mass index (BMI) Body weight Heart rate Oxygen saturation Oxygen saturation in Arterial blood by Pulse oximetry Systolic blood pressure Diastolic blood pressure Provider Name and Address Organization Details Last Updated DateTime 3 167.64 cm 97.1 [degF] 26.8 kg/m2 67764.3 3 g 104 /min 98 % 98 % 112 mm[Hg] 70 mm[Hg] Jeanna Willis RN [place] [facility] 3 11:41:14 Date Recorded Body height Body temperature Body mass index (BMI) Body weight Respiratory rate Oxygen saturation Oxygen saturation in Arterial blood by Pulse oximetry Heart rate Systolic blood pressure Diastolic blood pressure Provider Name and Address Organization Details Last Updated DateTime 3 167.64 cm 98 [degF] 27.1 kg/m2 58466.5 2 g 16 /min 98 % 98 % 89 /min 118 mm[Hg] 78 mm[Hg] Selene MontalvoKENDY [place] [facility] [facility] 3 10:49:53 Social History Question Answer Notes LastModified by Organizat ion Details LastModified Time Tobacco Smoking Status Former Smoker quit 2010 Not Available [facility] 07/02/2022 06:39:02 What Is Your Level Of Alcohol Consumption? None MIGRATION.19924 [id number] Information not available 07/02/2022 What Is Your Level Of Caffeine Consumption? Moderate MIGRATION.17960 59158 Information not available 07/02/2022 How Much Tobacco Do You Chew? None MIGRATION.52817 84754 Information not available 07/02/2022 In The 14 Days Before Symptom Onset, Have You Had Close Contact With A Laboratory-confir med COVID-19 While That Case Was Ill? No MIGRATION.22300 [address] Information not available 07/02/2022 In The 14 Days Before Symptom Onset, Have You Had Close Contact With A Person Who Is Under Investigation For COVID-19 While That Person Was Ill? No MIGRATION.44546 70181 Information not available 07/02/2022 Are You Currently Employed? Yes [email or web address] Information not available 07/25/2022 What Type Of Diet Are You Following? REGULAR MIGRATION.21227 90398 Information not available 07/02/2022 Which Illicit Or Recreational Drugs Have You Used? None MIGRATION.08505 54900 Information not available 07/02/2022 Do You Or Have You Ever Used E-cigarettes Or Vape? 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 No MIGRATION.68448 58557 Information not available 07/02/2022 Do You Use Insect Repellent Routinely? No MIGRATION.41122 20087 Information not available 07/02/2022 What Is Your Relationship Status? Single MIGRATION.84113 39957 Information not available 07/02/2022 Do You Use Your Seat Belt Or Car Seat Routinely? Yes MIGRATION.94892 15994 Information not available 07/02/2022 Do You Have Smoke And Carbon Monoxide Detectors In Your Home? Yes MIGRATION.73640 34715 Information not available 07/02/2022 At What Age Did You Start Smoking Tobacco? 15 MIGRATION.33468 00997 Information not available 07/02/2022 Do You Or Have You Ever Used Smokeless Tobacco? Never Used Smokeless Tobacco MIGRATION.57768 49856 Information not available 07/02/2022 How Much Tobacco Do You Smoke? No MIGRATION.75747 96847 Information not available 07/02/2022 Do You Use Any Illicit Or Recreational Drugs? No MIGRATION.33767 14599 Information not available 07/02/2022 Do You Use Sunscreen Routinely? Yes MIGRATION.72409 37250 Information not available 07/02/2022 How Many Years Have You Smoked Tobacco? 4 MIGRATION.65841 01553 Information not available 07/02/2022 Have You Recently Traveled Abroad? No MIGRATION.87046 29615 Information not available 07/02/2022 Do You Have Any Dietary Restrictions? No MIGRATION.88303 01772 Information not available 07/02/2022 Do You Or Have You Ever Used Any Other Forms Of Tobacco Or Nicotine? No MIGRATION.47231 86384 Information not available 07/02/2022 Sex: Unknown Functional Status Question Answer Note LastModified by Organizat ion Details LastModified Time What is your exercise level? Moderate [id number] Information not available 07/02/2022 Mental Status None recorded. Family History Relationship Description Onset Age of this Age Resolved Age Notes LastModified by Organization Details LastModified Time Maternal Grandmother Diabetes mellitus MIGRATION.692 [id number] Not available 07/02/2022 06:39:11 Maternal Grandmother Hypertensive disorder MIGRATION.751 [id number] Not available 07/02/2022 06:39:11 Paternal Grandmother Malignant tumor of breast MIGRATION.249 [id number] Not available 07/02/2022 06:39:11 Father Pulmonary embolism MIGRATION.354 [id number] Not available 07/02/2022 06:39:11 Medical History Condition [...] toxoid, unspecified formulation 5 completed Not Available [facility] 07/02/2022 06:52:03 TST, unspecified formulation 4 completed Not Available [facility] 07/02/2022 06:52:04 COVID-19, mRNA, LNP-S, PF, 30 mcg/0.3 mL dose 1 completed Not Available [facility] 07/02/2022 06:52:04 COVID-19, mRNA, LNP-S, PF, 30 mcg/0.3 mL dose 1 completed Not Available [facility] 07/02/2022 06:52:04 Influenza, split virus, quadrivalent, PF 9 completed Not Available [facility] 07/02/2022 06:52:05 Tdap 9 completed Not Available [facility] 07/02/2022 06:52:05 Tdap 4 completed Not Available [facility] 07/02/2022 06:52:05 Past Encounters Encounter ID Performer Location Encounter Start Date Encounter Closed Date Diagnosis/Indication Diagnosis SNOMED-CT Code Diagnosis ICD10 Code Diagnosis Note [id number] [facility] _ATHENA_M IGRATION_ DEFAULT_1 _1 , 08/27/2020 00:00:00 08/27/2020 12:01:27 [id number] DELFINO Guallpa [facility] Internal [facility] [place] [address] [place] [address] 09/06/2020 00:00:00 09/27/2020 01:23:28 [id number] Fausto Palacio MD [facility] [place] [address] [place] [address] 09/25/2021 00:00:00 09/25/2021 11:53:07 [id number] Fausto Palacio MD [facility] Internal [facility] [place] [address] [place] [address] 10/11/2021 00:00:00 10/21/2021 12:46:50 [id number] DELFINO Guallpa [facility] [place] [address] [place] [address] 01/09/2022 00:00:00 01/30/2022 23:56:35 [id number] DELFINO Guallpa [facility] [place] [address] [place] [address] 07/25/2022 11:34:47 07/25/2022 11:56:36 Postviral cough 189855058 R05.3 Rx for prednisone 50mg daily x 5 days, and Virtussin AC as directed [id number] DELFINO Guallpa [facility] Internal [facility] [place] [address] [place] [address] 09/25/2022 10:44:59 09/25/2022 11:13:55 Adult health examination 514136566 Z00.00 well exam completed Premenstru al dysphoric disorder 963842 F32.81 pt is off medication and feeling stable. no c/o Cholesterol screening 27 2542382 Z13.220 fasting lipids due Diabetes m ellitus screening 740843404 Z13.1 a1c screening due Thyroid di sorder screening 222373759 Z13.29 thyroid labs due Body mass index 25-29 - overweight 763553954 Z68.27 start wegovy trial. Health Concerns Section Related Observation LastModified by Organization Detai ls LastModified Time None Recorded Concern Status LastModified by Organization Details LastModified Time None Recorded Advance Directives Directive None Recorded Payers Encounter Date Sequence Insurance Name Policy Number Policy Velazquez Covered Member ID Velazquez Member ID Guarantor Name 07/25/2022 1 [facility]LY [facility] [id number] Flakita Bridges [id number] 2 [id number] Flakita Bridges 09/25/2022 1 [facility]LY [facility] [id number] Flakita Bridges [id number] Flakita Bridges Notes Date Note Type Note [...] maintaining functionalityNotes:on fluoxetine for PMDD Not Available [facility] 09/25/2021 11:53:07 10/11/2021 text/html Back Pain - [...] hurts to take deep breaths. Not Available [facility] 10/21/2021 12:46:50 01/09/2022 text/html HeadacheReported bypatient.Location:fr ontal; [...] no weight loss;sleep disturbances;eyelid edema Not Available [facility] 01/30/2022 23:56:35 07/25/2022 text/html CoughReported bypatient.Quality:min sh;tight Severity:moderate Duration:constant; symptoms lasting over 2 weeks Timing:gradual Context:non-smoker Associated Symptoms:agitated DELFINO Guallpa [address] [facility], [place] [address], [place], [address], [email or web address] [facility] 07/31/2022 15:33:05 09/25/2022 text/html Anxiety/Depressi onRep orted [...] breath;anxiety;sleep disturbances;palpitat ions Wellness DELFINO Guallpa [address] [facility], [place] [address], [place], [address], [email or web address] [facility] 09/28/2022 15:05:18 OBGyn Episode No OBEpisode recorded.
--- OUTSIDE RECORDS SUMMARY | 2024-09-02 07:51 | XMS_ITS | Data Portability ---
Author Organization [facility] Address [address] [facility] [place] [place] [address] Care Team Providers Care Parts Puller Name Role Phone NIKOLAY COLE Primary Care Provider Unavailab le Assessment No assessment recorded. Plan of Treatment Reminders Order Date Submit Date Provider Last Modified By Organization Details Last Modified Time Details Appointments ANY 15 2024 10:15A M DELFINO Guallpa Not available Not available Not available Lab TSH + free T4, serum 2023 024 GÉNESIS Labdottie, [address], [place], [address], 11/11/2023 09:23:25 CMP, serum or plasma 2023 024 adeel Higgins, [address], [place], [address], 11/13/2023 10:53:15 CBC w/ auto diff 2023 024 adeel Higgins, [address], [place], [address], 11/13/2023 10:53:15 vitamin B12 + folate, serum or blood 2023 024 adeel Higgins, [address], [place], [address], 11/13/2023 10:53:15 lipid panel, serum 2023 024 adeel Higgins, [address], [place], [address], 11/13/2023 10:53:15 HbA1c (hemoglob in A1c), blood 2023 024 [facility], [address], [place], [address], 11/13/2023 10:53:15 Referral None recorded. Procedures None recorded. Surgeries None recorded. Imaging None recorded. Medication Orders bupropion HCl XL 150 mg 24 hr tablet, extended release 2023 024 [id number], [address], [place], [place], [id number], 11/07/2023 14:15:48 Patient TargetsNo targets recorded. Patient InstructionsNo instructions recorded. Reason for Referral None Reported. Results Created Date Observation Date Name Description Value Unit Range Abnormal Flag Note LastModifiedBy Organization Detail LastModifiedTime 06/10/19 25 06/10/2024 US, liver No observ ation record ed. [facility] [address], [place], [address], 06/14/2024 17:55:46 Result Notes None recorded. Problems Name Problem SNOMED Code Status Onset Date Resolution Date Notes Provider Name and Address Organization Details Recorded Time Major depressive disorder 263907736 Active 2023 DELFINO Guallpa Attn: Iona zavala,[address] [facility], [place], [address], [facility] 4 14:15:53 Generalized anxiety disorder 77224605 Active 2023 DELFINO Guallpa Attn: Iona zavala,[address] [facility], [place], [address], [place] [facility] 4 14:16:28 Insomnia 460934164 Active 2023 DELFINO Guallpa Attn: Iona zavala,[address] [facility], [place], [address], [place] [facility] 4 14:16:46 Body mass index 25-29 - overweight 345436671 Active 2023 DELFINO Guallpa Attn: Iona zavala,[address] [facility], [place], [address], [facility] 4 14:16:48 Long-term drug therapy Active 2023 DELFINO Guallpa Attn: Iona zavala,[address] [facility], [place], [address], [facility] 4 14:17:04 Positive screening for depression on PHQ-9 (Patient Health Questionnai re 9) [id number] 00 Active 2023 DELFINO Guallpa Attn: Iona zavala,[address] [facility], [place], [address], [facility] 4 14:19:00 Problem Notes None recorded. Procedures Surgical History Date Name Laterality Status Provider Name and Address Organization Details Recorded Time 05/04/19 19 excision of bilateral fallopian tubes and ovaries completed Delisa Baker MA [facility] 10/23/2023 12:05:22 Cholecystectomy completed Delisa Baker MA [facility] 10/23/2023 12:05:04 Imaging Results Imaging Date Name Status LastModified by Organiz ation Details LastModified Time 06/10/2024 US, liver completed [address] [place] [address], [address], 06/14/2024 17:55:46 Procedure Notes None recorded. Medical Equipment None Reported. Allergies Allergen ID Allergen Name Allergen Category Reaction Reaction Severity Criticality Documentation Date Start Date Code Code System Note Provider Name and Address Organization Details Recorded Time 17290804 acetamino phen / hydrocodo ne medicatio n Not available Not available Not available 10/23/202370261 2 RxNorm VICKI Hartmann [facility] 4 11:59:23 603772 Compazine medicatio n Not available Not available Not available 10/23/202380578 6 RxNorm VICKI Hartmann, [facility] 4 12:04:24 Medications Name Sig Start Date Stop Date [...] Last Updated DateTime 167.64 cm 25.9 kg/m2 79458.9 3 g 20 /min 99 % 99 % 75 /min 122 mm[Hg] 68 mm[Hg] Delisa Baker [place] [facility] 4 12:03:22 Social History Question Answer Notes LastModified by Organizat ion Details LastModified Time Tobacco Smoking Status Never Smoker [place] [facility] 10/23/2023 12:00:43 What Is Your Level Of [...] Skin Problems N Anemia N Heart Attack (PR) N Anxiety Disorder Y Diabetes N Muscle, Joint, or Bone Problems N Seizures/Epilepsy N Acid Reflux (GERD) N Cancer N Stroke N Asthma N Allergies N High Cholesterol N Hepatitis N Liver Disease N Headaches N Heart Failure N Osteoporosis N Gynecological History Statement/Question Response Flow Moderate [...] SNOMED-CT Code Diagnosis ICD10 Code Diagnosis Note [id number] Fausto Palacio MD COUNTS INCLUDE 234 BEDS AT [facility] Josh Lyles [address] [place] [address] 10/23/2023 11:26:15 10/23/2023 12:46:14 Body mass index 25-29 - overweight 978679759 Z68.25 Major depr essive disorder 863613028 F32.9 Start Wellbutrin XL 150 mg daily. Call with efficacy in 3-4 weeks or contact provider through patient portal. Pt to seek ER with any S.I. She will call with any intoleranc e, side effects or lack of efficacy issues. Generalize d anxiety disorder 64166176 F41.1 Continue fluoxetine 20 mg daily, anxiety is stable. Insomnia 536395583 G47.0 0 Patient does have some persistent insomnia but hopefully with better management of her depression the insomnia will improve. She is welcome to use over-the-c ounter melatonin or supplement for sleep. Adult heal th examination 959187000 Z00.01 Annual wellness completed Cholesterol screening 27 5411840 Z13.220 Fasting lipid panel is due Diabetes m ellitus screening 448103859 Z13.1 A1c screening is due Thyroid di sorder screening 556039072 Z13.29 Thyroid panel is due Long-term drug therapy 096563867 Z79.899 cmp, cbc and b12, folate labs are due Positive s creening for depression on PHQ-9 (Patient Health Questionnaire 9) 9341390207 51827 Z13.31 Score on questionna trini today is [...] Velazquez Member ID Guarantor Name 10/23/2023 1 [facility] [id number] Roosevelt Bridges [id number] 2 Flakita Bridges Notes Date Note Type [...] Symptoms:anxiety;d epression DELFINO Guallpa Attn: [address] [place], [address], [facility] - COUNTS INCLUDE 234 BEDS AT THE [facility] 11/07/2023 14:19:17 OBGyn Episode No OBEpisode recorded.
== END 2024-09-02 07:47 | disposition home or self-care (01) ==
LOC: ANHIMG 07:48
PROVIDERS: PCP Physician Assistant; Visit Provider Obstetrics & Gynecology
DX: Z12.31 Encounter for screening mammogram for malignant neoplasm of breast (principal); Z80.3 Family history of malignant neoplasm of breast
CPT/HCPCS: 77063; 77067

== ENCOUNTER 2025-03-06 13:14 | Emergency (ER) | payer OTHER, SELFPAY ==
--- NOTE | ~2025-03-06 | XR_ITS ---
Examination: XR femur LT min 2V Clinical History: pain for 1 month Comparison: None Technique: 2 views left femur, 4 films Findings/impression: 1. No fracture, dislocation, or other acute abnormality identified. Reviewed, dictated and finalized at location R. P HANDLER
--- NOTE | 2025-03-06 13:32 | ED_ITS ---
HPI - Extremity Injury (Lower) General Chief Complaint: Extremity Injury, Lower Stated Complaint: left femur Time Seen by Provider: 03/06/25 13:32 Source: patient Mode of arrival: ambulatory Limitations: no limitations History of Present Illness HPI Narrative: 34-year-old female presents with complaint of left thigh pain for 1 month. Denies injury. States that pain feels like a deep ache in her bone . No c hange in tenderness on palpation. Nothing makes pain better or worse. Has tried iboe-omp-iqnstbi pain medications without relief. Has appointment with her primary care physician next week. Wanted to rule out fracture prior to appointment. All systems reviewed and negative except as noted above. Related Data Home Medications ?Medication ?Instructions ?Recorded ?Confirmed ?Last Taken ?Type Saccharomyces boulardii 250 mg 250 mg PO BID 03/11/23 08/06/24 Unknown History capsule (Daily Probiotic (S. boulardii)) cholecalciferol (vitamin D3) 25 25 mcg PO DAILY 03/06/25 Unknown History mcg (1,000 unit) capsule (Vitamin D3) progesterone 50 mg/mL 5 mg IM DAILY 03/06/2503/06 Unknown History intramuscular oil vitamin K2 45 mcg capsule 45 mcg PO DAILY 03/06/2507/26 Unknown History Allergies Allergy/AdvReac Type Severity Reaction Status Date / Time prochlorperazine Allergy Severe TONIC JAW Verified 03/06/25 13:28 hydrocodone AdvReac Severe ITCHY Verified 03/06/25 13:28 PMFSH Past Medical History Medical History Loose stools Abdominal pain Vaginal delivery 09/23/08 Damon--no complications 11/19/13 Emigdio--no complications 11/07/18 Jose Antonio--no complications Encounter for IUD removal 01/15/17 Mirena removal via hscope in OR Encounter for IUD insertion 06/22/14 Mirena insertion Insomnia Vitamin D deficiency Anxiety Surgical History Surgical History History of bilateral salpingectomy (12/22/18) undesired fertility History of cholecystectomy (03/09/18) History of hysteroscopy (01/15/17) hscope IUD removal Family History Family History Grandparent Diabetes mellitus maternal grandmother Hypertension maternal grandmother Breast cancer paternal grandmother Father Pulmonary embolism Other Breast cancer 2 paternal Aunts Mother Breast cancer, Onset Age: 57 2023 Social History Social History Smoking status: Never smoker Tobacco type: cigarettes Second hand tobacco smoke exposure: No Smoking end date: 05/04/09 Alcohol intake: former Alcohol use details: 1-2 a month Substance use: never Substance use type: does not use Do You Feel Safe in your Home?: Yes Lack of Transportation: No Lack of Food: Never True Current Housing: I Have Housing Concerned About Future Housing: No Difficulty Paying Gas/Electric Bills: No Difficulty Paying for Meds: No Currently Unemployed: No Education: Trade/Vocational Certificate Difficulty w/ Childcare or Family Care: No Living arrangements: with family Additional living arrangements comments: Occupation/Education: occupation 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 There is no relevant family history pertinent to the presenting complaint. Exam Narrative: GENERAL: This is a well-nourished, well-developed patient, in no apparent distress. HEAD: normocephalic, atraumatic. EYES: PERRL. Sclera clear/white. Vision is grossly intact. EARS: External ears normal NOSE: External nose normal NECK: Neck supple, non-tender without lymphadenopathy, masses or thyromegaly. CARDIOVASCULAR: Regular rate and rhythm without murmurs, gallops, or rubs. RESPIRATORY: Clear to auscultation. Breath sounds equal bilaterally. No wheezes, rales, or rhonchi. SKIN: warm, Dry, intact with no suspicious lesions or rash, good texture and turgor. NEURO: awake, alert, and oriented to person, place and time. There were no obvious focal neurologic abnormalities. EXTREMITIES: No joint tenderness, effusion, or edema noted. No tenderness on palpation of left thigh. Course Course Level of Care: Express Care Visit Vital Signs Vital signs: reviewed MDM - Extremity Injury (Lower) MDM Narrative Medical decision making narrative: x-ray of left femur is normal. No fracture noted. No tenderness on palpation to left thigh, no abnormality noted. Patient has appoint with primary care physician next week for further evaluation. Imaging Data My impression: agree with radiologist Radiologist's impression: Examination: XR femur LT min 2V Clinical History: pain for 1 month Comparison: None Technique: 2 views left femur, 4 films Findings/impression: 1. No fracture, dislocation, or other acute abnormality identified. Discharge Plan Discharge Clinical Impression: Acute pain of left thigh Patient Disposition: Home Condition: Stable Instructions: Musculoskeletal Pain (ED) Additional Instructions: the x-ray of your left femur was normal. Take ibuprofen or Tylenol every 6-8 hours as needed for pain. Avoid activities that increase pain to her left thigh. Follow-up with your primary care physician at scheduled appointment. Patient Language: Japanese Prescriptions: No Action Saccharomyces boulardii [Daily Probiotic (S. boulardii)] 250 mg capsule 250 mg PO BID Follow-up/Referrals: Evert,TREVOR Powell [Primary Care Provider, Unknown] Time of Disposition: 14:26
[2025-03-06 13:33] VITALS: BP 105/68; PULSE 78; RESP 18; TEMP 36.9; O2SAT 100
--- OUTSIDE RECORDS SUMMARY | 2025-03-06 14:27 | XMS_ITS | Data Portability ---
[facility] Address [address] [place] [address] Care Team Providers Care Electric Transfer Operator Name Role Phone NIKOLAY COLE Primary Care Provider Unavailab le Assessment No assessment recorded. Plan of Treatment Reminders Order Date Submit Date Provider Last Modified By Organization Details Last Modified Time Details Appointments ANY 15 2024 02:30P M DELFINO Guallpa Not available Not available Not available Lab hepatic function panel, serum 2024 025 [facility], [address], [place], [address], 12/06/2024 05:29:31 TSH + free T4, serum 2023 024 [place] [facility], [address], [place], [address], 11/11/2023 09:23:25 CMP, serum or plasma 2023 024 adeel Higgins, [address], [place], [address], 11/13/2023 10:53:15 CBC w/ auto diff 2023 024 adeel Higgins, [address], [place], [address], 11/13/2023 10:53:15 vitamin B12 + folate, serum or blood 2023 024 [facility], [address], [place], [address], 11/13/2023 10:53:15 lipid panel, serum 2023 024 [facility], [address], [place], [address], 11/13/2023 10:53:15 HbA1c (hemoglob in A1c), blood 2023 024 [facility], [address], [place], [address], 11/13/2023 10:53:15 Referral None recorded. Procedures None recorded. Surgeries None recorded. Imaging None recorded. Medication Orders bupropion HCl XL 150 mg 24 hr tablet, extended release 2023 024 [id number], [address], [place], [place], [id number], 10/24/2024 11:12:45 Patient TargetsNo targets recorded. Patient InstructionsNo instructions recorded. Reason for Referral None Reported. Results Created Date Observation Date Name Description Value Unit Range Abnormal Flag Note LastModifiedBy Organization Detail LastModifiedTime 12/06/1912/06/2024 HEPAT IC FUNCT ION PANEL protein, total 6.8 g/dL 6.1-8. 1 normal Not Available [facility] [address], [address], 12/06/2024 05:29:31 12/06/1912/06/2024 HEPAT IC FUNCT ION PANEL albumin 4.5 g/dL 3.6-5. 1 normal Not Available [facility] [address], [address], 12/06/2024 05:29:31 12/06/1912/06/2024 HEPAT IC FUNCT ION PANEL globulin 2.3 g/dL_ (calc ) 1.9-3. 7 normal Not Available [facility] [address], [address], 12/06/2024 05:29:31 12/06/1912/06/2024 HEPAT IC FUNCT ION PANEL albumin/glob ulin ratio 2.0 (calc ) 1.0-2. 5 normal Not Available [address], [address], 12/06/2024 05:29:31 12/06/1912/06/2024 HEPAT IC FUNCT ION PANEL bilirubin, total 0.6 mg/dL 0.2-1. 2 normal Not Available [address], [address], 12/06/2024 05:29:31 12/06/1912/06/2024 HEPAT IC FUNCT ION PANEL bilirubin, direct 0.2 mg/dL < or = 0.2 normal Not Available [address], [address], 12/06/2024 05:29:31 12/06/1912/06/2024 HEPAT IC FUNCT ION PANEL bilirubin, indirect 0.4 mg/dL _(erika c) 0.2-1. 2 normal Not Available [address], [address], 12/06/2024 05:29:31 12/06/1912/06/2024 HEPAT IC FUNCT ION PANEL alkaline phosphatase 40 U/L 31-125 normal Not Available [address], [address], 12/06/2024 05:29:31 12/06/1912/06/2024 HEPAT IC FUNCT ION PANEL AST 23 U/L 10-30 normal Not Available [address], [address], 12/06/2024 05:29:31 12/06/19 25 12/06/2024 HEPAT IC FUNCT ION PANEL ALT 23 U/L 6-29 normal Not Available [facility] [address], [place], [address], 12/06/2024 05:29:31 06/10/19 25 06/10/2024 US, liver No observ ation record ed. [facility] [address], [place], [address], 06/14/2024 17:55:46 09/03/19 25 09/02/2024 MAMMO , scree chester, digit al, bilat eral No observ ation record ed. [email or web address] [address], [place], [address], 09/02/2024 16:18:10 Result Notes None recorded. Problems Name Problem SNOMED Code Status Onset Date Resolution Date Notes Provider Name and Address Organization Details Recorded Time Major depressive disorder 792873929 Active 2023 DELFINO Guallpa Attn: Iona zavala,[address] [facility], [place], [address], [place] - [place] 4 14:15:53 Generalized anxiety disorder 74555819 Active 2023 DELFINO Guallpa Attn: Iona zavala,[address] [place], [address], [place] 4 14:16:28 Insomnia 981750852 Active 2023 DELFINO Guallpa Attn: Iona zavala,[address] [facility], [place], [address], [place] - [place] 4 14:16:46 Body mass index 25-29 - overweight 756673480 Active 2023 DELFINO Guallpa Attn: Iona zavala,[address] [facility], [place], [address], [place] - [place] 4 14:16:48 Long-term drug therapy Active 2023 DELFINO Guallpa Attn: Iona zavala,[address] [facility] [place], [address], [place] - [place] 4 14:17:04 Positive screening for depression on PHQ-9 (Patient Health Questionnai re 9) 4810391503639 00 Active 2023 DELFINO Guallpa Attn: Accountin g,[address] [facility], [place], [address], [place] - [place] 5 11:39:53 Normal weight 87880801 Active 2024 DELFINO Guallpa Attn: Accountin g,[address] [facility], [place], [address], [facility] - SIF 5 11:22:06 Liver enzymes level above reference range 441845306 Active 2024 DELFINO Guallpa Attn: Accountin g,[address] [facility], [place], [address], [facility] - SI 5 11:39:10 Problem Notes None recorded. Procedures Surgical History Date Name Laterality Status Provider Name and Address Organization Details Recorded Time 05/04/19 19 excision of bilateral fallopian tubes and ovaries completed eDlisa Baker MA [facility] 10/23/2023 12:05:22 Cholecystectomy completed Delisa Baker MA [facility] 10/23/2023 12:05:04 Imaging Results None recorded. Procedure Notes None recorded. Medical Equipment None Reported. Allergies Allergen ID Allergen Name Allergen Category Reaction Reaction Severity Criticality Documentation Date Start Date Code Code System Note Provider Name and Address Organization Details Recorded Time 17290804 acetamino phen / hydrocodo ne medicatio n Not available Not available Not available 10/23/202336160 2 RxNorm VICKI Hartmann, [facility] 4 11:59:23 101991 Compazine medicatio n Not available Not available Not available 10/23/202377874 6 RxNorm VICKI Hartmann, [facility] 4 12:04:24 822436 acetamino phen / hydrocodo ne medicatio n itching moderate Not available 02/17/202523104 2 RxNorm Not Available kim - External Data Service - prod 15:40:54 Medications Name Sig Start Date Stop Date Status Note LastModified by Organization Details LastModified Time fluoxetine 10 mg tablet 10/22 completed Not Available Not Available Not Available cephalexin 500 mg capsule 10/22 completed Not Available Not Available Not Available fluoxetine 20 mg tablet 10/24 completed Not Available Not Available Not Available mupirocin 2 % topical ointment 10/22 completed Not Available Not Available Not Available bupropion HCl XL 150 mg 24 hr tablet, extended release Take 1 tablet every day by oral route in the morning. 10/24 completed Not Available Not Available Not Available semaglutide (weight loss) 0.25 mg/0.5 mL subcutaneou s pen injector Inject 0.25 mg every week by subcutane ous route as directed. active Not Available Not Available No t Available Vitals Date Recorded Body height Body mass index (BMI) Body weight Respiratory rate Oxygen saturation Oxygen saturation in Arterial blood by Pulse oximetry Heart rate Systolic And Diastolic Provider Name and Address Organization Details Last Updated DateTime 4 167.64 cm 25.9 kg/m2 41754.9 3 g 20 /min 99 % 99 % 75 /min 122/68 mm[Hg] Delisa Baker MA [facility] 4 12:03:22 Date Recorded Respiratory rate Systolic And Diastolic Provider Name and Address Organization Details Last Updated DateTime 10/24/2024 16 /min 98/70 mm[Hg] DELFINO Guallpa Attn: Accounting,[address] [place], [address], [facility] 10/24/2024 11:37:52 Date Recorded Body weight Body mass index (BMI) Body height Heart rate Oxygen saturation Oxygen saturation in Arterial blood by Pulse oximetry Systolic And Diastolic Provider Name and Address Organization Details Last Updated DateTime 5 77000.4 1 g 21.9 kg/m2 167.64 cm 93 /min 98 % 98 % 118/70 mm[Hg] Amber Nelson MA [facility] 5 11:12:09 Social History Question Answer Notes LastModified by Organizat ion Details LastModified Time Tobacco Smoking Status Never Smoker Delisa Baker MA [facility], [place] - [place] 10/23/2023 12:00:43 Are You Blind Or Do You Have [...] Information not available 10/22/2023 Do You Use Sunscreen Routinely? Yes Information not available 10/23/2023 Has Tobacco Cessation Counseling Been Provided? Yes Information not available 10/22/2023 On What Date Was Tobacco Cessation Counseling Provided? 10/23/2023 Information not available 10/23/2023 Sex: Female Functional Status Question Answer Note LastModified by Organizat ion Details LastModified Time Do you use any illicit or recreational drugs? No Information not available 10/23/2023 Do you or have you ever used any other forms of tobacco or nicotine? No Information not available 10/23/2023 What is your level of alcohol consumption? Occasional Information not available 10/23/2023 Are you able to care for yourself independently? Yes Information not available 10/22/2023 What is your exercise level? [...] Skin Problems N Anemia N Heart Attack (SD) N Anxiety Disorder Y Diabetes N Muscle, Joint, or Bone Problems N Seizures/Epilepsy N Acid Reflux (GERD) N Cancer N Stroke N Asthma N Allergies N High Cholesterol N Hepatitis N Liver Disease N Headaches N Heart Failure N Osteoporosis N Gynecological History Statement/Question Response Flow Moderate Date of LMP 10/20/2024 Menses Monthly Y Duration of Flow (days) 4 Current Control Method None LMP Approximate Obstetrics History GPAL:G 3 P 3 0 0 3 Type Value Full Term 3 Induced 0 Spontaneous 0 Premature 0 Living 3 Total 3 Immunizations Vaccine Type Date Status Note Provider Nam e and Address Organization Details Recorded Time Tdap 11/11/2013 completed Not Available [facility] 10/24/2024 11:03:52 COVID-19, mRNA, LNP-S, PF, 30 mcg/0.3 mL dose 07/23/2020 completed Not Available [facility] 11:03:52 COVID-19, mRNA, LNP-S, PF, 30 mcg/0.3 mL dose 08/13/2020 completed Not Available [facility] 11:03:52 Past Encounters Encounter ID Performer Location Encounter Start Date Encounter Closed Date Diagnosis/Indication Diagnosis SNOMED-CT Code Diagnosis ICD10 Code Diagnosis IMO Codes Diagnosis Note [id number] Fausto Palacio MD [facility] e - Josh Lyles [address] [place] [address] 10/23/2023 11:26:15 10/23/2023 12:46:14 Body mass index 25-29 - overweight 196148830 Z68.25 Major depr essive disorder 801335338 F32.9 Start Wellbutrin XL 150 mg daily. Call with efficacy in 3-4 weeks or contact provider through patient portal. Pt to seek ER with any S.I. She will call with any intoleranc e, side effects or lack of efficacy issues. Generalize d anxiety disorder 36507081 F41.1 Continue fluoxetine 20 mg daily, anxiety is stable. Insomnia 079059783 G47.0 0 Patient does have some persistent insomnia but hopefully with better management of her depression the insomnia will improve. She is welcome to use over-the-c ounter melatonin or supplement for sleep. [facility] 279936171 Z00.01 Annual wellness completed Cholesterol screening 27 1803508 Z13.220 Fasting lipid panel is due Diabetes m ellitus screening 121579028 Z13.1 A1c screening is due Thyroid di sorder screening 807100961 Z13.29 Thyroid panel is due Long-term drug therapy 092224512 Z79.899 cmp, cbc and b12, folate labs are due Positive s creening for depression on PHQ-9 (Patient Health Questionnaire 9) 8232704185 95849 Z13.31 Score on questionna trini today is 16. Wellbutrin will be started as stated above. [id number] Fausto Palacio MD [facility] [address] [facility] [address] [place] [address] 10/24/2024 11:02:15 10/24/2024 12:39:23 Normal weight 25760795 Z68.21 1254708689 BMI 21 range [facility] examination 249014235 Z00.01 Annual wellness completed Long-term drug therapy 527506921 Z79.899 Labs up-to-date from extensive lab draw from weight loss fall earlier in the year. Liver enzy mes level above reference range 508095741 R74.01 Repeat liver function panel we expect liver enzymes to be in total normal range at this time. We will call patient with results Positive s creening for depression on PHQ-9 (Patient Health Questionnaire 9) 9901911884 42335 Z13.31 0563544522 Patient scored an 8 on screening today which is still positive but improved from last year. She is off of medication and doing fine with no complaints or concerns. Health Concerns Section Related Observation LastModified by Organization Detai ls LastModified Time None Recorded Concern Status LastModified by Organization Details LastModified Time None Recorded Advance Directives Directive None Recorded Payers Insurance Date Sequence Insurance Name Policy Number Policy Velazquez Covered Member ID Velazquez Member ID Guarantor Name 02/17/2025 1 KENY [id number] Roosevelt Bridges [id number] Flakita Bridges Notes Date Note Type Note Provider Name and Address Organization Details Recorded Time 10/23/19 24 text/htm l InsomniaReported by PatientHPIFor context, patient reportsusing medications for sleep. For associated symptoms, patient reportsanxietyanddepression. For quality, patient reportssymptoms worse in the evening. For severity, patient reportssameandmoderate. For duration, patient reportsfrequent. For modifying factors, patient reportsotc medication. Anxiety/DepressionReported by PatientHPIFor quality, patient reportsmood worse. For associated symptoms, patient reportshostility,depression,in somnia,sleep disturbances, anddecreased effectiveness/productivity. For severity, patient reportsdenies suicidal ideations,able to maintain relationships, anddoes not interfere with activities of daily living. For duration, patient reportsfrequentandsymptoms lasting over 2 weeks. For onset/timing, patient reportsgradual. For context, patient reportsno major life stressors. DELFINO Guallpa Attn: Accounting,[address] [facility], [place], [address], [facility] 11/07/2023 14:19:17 10/25/19 25 text/htm l Patient presents for her annual wellness exam. She is feeling good she has lost weight on compounded semaglutide. This is through a weight loss small provider. All of her labs are up-to-date from winter. She did have an unknown cause of elevation in liver enzymes which has been worked up by this provider. Testing has all been negative and liver function enzymes were almost normal at the last check. She is due for the final draw to ensure they have normalized. DELFINO Guallpa Attn: Accounting,[address] [facility], [place], [address], [facility] 10/24/2024 11:40:09 OBGyn Episode No OBEpisode recorded.
--- OUTSIDE RECORDS SUMMARY | 2025-03-06 14:27 | XMS_ITS | Clinical Summary ---
Author Organization [facility] Address [address] [place] [address] Care Team Providers Care Trade Mark Attorney Name Role Phone Mari Shields MD Primary Care Provider [phone] Source Comments [facility] [employer],non-owned Affiliates and Associated Physician Practices is amultiple site organization consisting of ambulatory clinics and hospital sitesin [place], [place], [place] and [place]. This disclosure is being madepursuant to the Care Everywhere program and may not contain all information available regarding this patient. Last updated 18.[facility] [employer] Allergies No known active allergies Medications * Be aware that medications may not be up to date on this document. Alwaysverify current medications with the patient. Cholecalciferol (VITAMIN D3) 72816 UNITS TABS Active Social History Tobacco Use Types Packs/Day Years Used Date Smoking Tobacco: Never Assessed Comments Unknown Sex and Gender Information Value Date Recorded Sex Assigned at Not on file Legal Sex Female 5:36 AM QUARTER FOLDER Gender Identity Not on file Sexual Orientation Not on file Last Filed Vital Signs Vital Sign Reading Time Taken Comments Blood Pressure 108/78 06/26/2016 10:36 AM QUARTER FOLDER Pulse 84 06/26/2016 10:36 AM QUARTER FOLDER Temperature 36.1 C (96.9 F) 06/26/2016 10:36 AM QUARTER FOLDER Respiratory Rate - - Oxygen Saturation - - Inhaled Oxygen Concentration - - Weight 79.7 kg (175 lb 9.6 oz) 06/26/2016 10:36 AM QUARTER FOLDER Height 167.6 cm (5' 6) 06/26/2016 10:36 AM QUARTER FOLDER Body Mass Index 28.34 06/26/2016 10:36 AM QUARTER FOLDER Plan of Treatment Health Maintenance Due Date Last Done Comments HIV SCREENING 2004 HEPATITIS C SCREENING 06/07/2007 DTAP/TDAP/TD VACCINES (1 - Tdap) 2008 HEPATITIS B VACCINE (1 of 3 - 19+ 3-dose series) 2008 PAP SMEAR 2010 HPV VACCINE (1 - 3-dose SCDM series) 2016 DEPRESSION SCREENING 05/04/2024 COVID-19 VACCINE (1 - 2023-2 5 season) 2025 INFLUENZA VACCINE (#1) 2025 ZOSTER VACCINE (1 of 2) 2039 [...] patient's age to complete this topic Insurance [facility] [employer] SELF PAY NO INSURANCE Member Subscriber Plan / Payer (Ef fective for All Dates) Name:Hanh Bridges R Member ID:Not on file Relation to Subscriber:Not on file Name:HANH BRIDGES Subscriber ID:Not on file (Home) Address: [address] [place] [phone] Payer ID:Not on file Group ID:Not on file Type:Self Pay Address: [facility] SELF PAY NO INSURANCE Member Subscriber Plan / Payer (Ef fective for All Dates) Name:Hanh Bridges R Member ID:Not on file Relation to Subscriber:Not on file Name:HANH BRIDGES Subscriber ID:Not on file (Home) Address: [address] [place], [place] [phone] Payer ID:Not on file Group ID:Not on file Type:Self Pay Address: [place], [place] [employer] SELF PAY NO INSURANCE Member Subscriber Plan / Payer (Ef fective for All Dates) Name:Hanh Bridges R Member ID:Not on file Relation to Subscriber:Not on file Name:CYRUSHANH Subscriber ID:Not on file (Home) Address: [address] [place] [phone] Payer ID:Not on file Group ID:Not on file Type:Self Pay Address: [place], [place] [employer] Care Teams Trade Mark Attorney Relationship Specialty Start Date End Date Mari Shields MD [address] [address] PCP - General 12/28/18
--- OUTSIDE RECORDS SUMMARY | 2025-03-06 14:31 | XMS_ITS | Data Portability ---
Author Organization [place] [facility], Main Office Address [address] [place] [address] Care Team Providers Care Welt Stitch Cleaner Name Role Phone NIKOLAY COLE Primary Care Provider [phone] Assessment No assessment recorded. Plan of Treatment Reminders Order Date Submit Date Provider Last Modified By Organization Details Last Modified Time Details Appointments None recorded. Lab TSH + free T4, serum 2022 023 [facility], [address], [place], [address], 3 07:43:28 lipid panel, serum 2022 023 [facility], [address], [place], [address], 3 07:43:30 CBC w/ auto diff 2022 023 [facility], [address], [place], [address], 3 07:43:32 CMP, serum or plasma 2022 023 [facility], [address], [place], [address], 3 07:43:30 HbA1c (hemoglobin A1c), blood 2022 023 [facility], [address], [place], [address], 3 07:43:31 Referral None recorded. Procedures None recorded. Surgeries None recorded. Imaging None recorded. Medication Orders Wegovy 0.25 mg/0.5 mL subcutaneou s pen injector 2022 023 [id number], [address] [facility] [address] [facility], [place], [place], [id number], 3 11:13:37 prednisone 50 mg tablet [address] [facility][id number], [address] [facility] [address] [place] [address], [id number], 3 14:36:26 codeine 10 mg-guaifene sin 100 mg/5 mL oral liquid [address] [facility] #[id number], [address], [id number], 3 14:36:23 Patient TargetsNo targets recorded. Patient InstructionsNo instructions recorded. Reason for Referral None Reported. Results Created Date Observation Date Name Description Value Unit Range Abnormal Flag Note LastModifiedBy Organization Detail LastModifiedTime 09/28/19 22 10/02/2021 CULTU RE, URINE , ROUTI NE culture, urine, routine abnormal CULTU RE, URINE , ROUTI NE Micro Numbe r: [id number] Test Statu s: Final Speci men [...] of pregn ant women . Not Available [address] [address] [place], [address], 10/02/2021 17:21:59 09/28/19 22 10/02/2021 REFLE XIVE URINE CULTU RE reflexive urine culture CULTU RE INDIC ATED - RESUL TS TO FOLLO W Not Available [address] [address] [place], [address], 10/02/2021 17:21:59 09/28/19 22 10/02/2021 URINA LYSIS , COMPL ETE W/REF KARL TO CULTU RE color yellow yellow normal Not Available [address] [address] [place], [address], 10/02/2021 17:21:58 09/28/19 22 10/02/2021 URINA LYSIS , COMPL ETE W/REF KARL TO CULTU RE appearance clear clear normal Not Available [address] [place], [address], 10/02/2021 17:21:58 09/28/19 22 10/02/2021 URINA LYSIS , COMPL ETE W/REF KARL TO CULTU RE specific gravity 1.025 1.001- 1.035 normal Not Available [address] [address] [place], [address], 10/02/2021 17:21:58 09/28/19 22 10/02/2021 URINA LYSIS , COMPL ETE W/REF KARL TO CULTU RE pH < or = 5.0 5.0-8. 0 normal Not Available [address], [address], 10/02/2021 17:21:58 09/28/19 22 10/02/2021 URINA LYSIS , COMPL ETE W/REF KARL TO CULTU RE glucose negati ve negati ve normal Not Available [address] [place], [address], 10/02/2021 17:21:58 09/28/19 22 10/02/2021 URINA LYSIS , COMPL ETE W/REF KARL TO CULTU RE bilirubin negati ve negati ve normal Not Available [address], [address], 10/02/2021 17:21:58 09/28/19 22 10/02/2021 URINA LYSIS , COMPL ETE W/REF KARL TO CULTU RE ketones negati ve negati ve normal Not Available [address], [address], 10/02/2021 17:21:58 09/28/19 22 10/02/2021 URINA LYSIS , COMPL ETE W/REF KARL TO CULTU RE occult blood negati ve negati ve normal Not Available [address], [address], 10/02/2021 17:21:58 09/28/19 22 10/02/2021 URINA LYSIS , COMPL ETE W/REF KARL TO CULTU RE protein negati ve negati ve normal Not Available [address], [address], 10/02/2021 17:21:58 09/28/19 22 10/02/2021 URINA LYSIS , COMPL ETE W/REF KARL TO CULTU RE nitrite negati ve negati ve normal Not Available [facility] [address], [address], 10/02/2021 17:21:58 09/28/19 22 10/02/2021 URINA LYSIS , COMPL ETE W/REF KARL TO CULTU RE leukocyte esterase trace negati ve abnormal Not Available [address], [address], 10/02/2021 17:21:58 09/28/19 22 10/02/2021 URINA LYSIS , COMPL ETE W/REF KARL TO CULTU RE WBC 0-5 /hpf < or = 5 normal Not Available [address], [address], 10/02/2021 17:21:58 09/28/19 22 10/02/2021 URINA LYSIS , COMPL ETE W/REF KARL TO CULTU RE RBC none seen /hpf < or = 2 normal Not Available [address], [address], 10/02/2021 17:21:58 09/28/19 22 10/02/2021 URINA LYSIS , COMPL ETE W/REF KARL TO CULTU RE squamous epithelial cells 6-10 /hpf < or = 5 abnormal Not Available [address], [address], 10/02/2021 17:21:58 09/28/19 22 10/02/2021 URINA LYSIS , COMPL ETE W/REF KARL TO CULTU RE bacteria none seen /hpf none seen normal Not Available [address], [address], 10/02/2021 17:21:58 09/28/19 22 10/02/2021 URINA LYSIS , COMPL ETE W/REF KARL TO CULTU RE hyaline cast none seen /lpf none seen normal Not Available [address], [address], 10/02/2021 17:21:58 09/28/19 22 10/02/2021 CBC (INCL UDES DIFF/ PLT) white blood cell count 7.7 thous and/u L 3.8-10 .8 normal Not Available [address], [address], 10/02/2021 17:21:57 09/28/19 22 10/02/2021 CBC (INCL UDES DIFF/ PLT) red blood cell count 4.49 liborio on/uL 3.80-5 .10 normal Not Available [address], [address], 10/02/2021 17:21:57 09/28/19 22 10/02/2021 CBC (INCL UDES DIFF/ PLT) hemoglobin 14.1 g/dL 11.7-1 5.5 normal Not Available [address], [address], 10/02/2021 17:21:57 09/28/19 22 10/02/2021 CBC (INCL UDES DIFF/ PLT) hematocrit 42.0 % 35.0-4 5.0 normal Not Available [address], [address], 10/02/2021 17:21:57 09/28/19 22 10/02/2021 CBC (INCL UDES DIFF/ PLT) MCV 93.5 fL 80.0-1 00.0 normal Not Available [address], [address], 10/02/2021 17:21:57 09/28/19 22 10/02/2021 CBC (INCL UDES DIFF/ PLT) MCH 31.4 pg 27.0-3 3.0 normal Not Available [address], [address], 10/02/2021 17:21:57 09/28/19 22 10/02/2021 CBC (INCL UDES DIFF/ PLT) MCHC 33.6 g/dL 32.0-3 6.0 normal Not Available [address], [address], 10/02/2021 17:21:57 09/28/19 22 10/02/2021 CBC (INCL UDES DIFF/ PLT) RDW 12.3 % 11.0-1 5.0 normal Not Available [address], [address], 10/02/2021 17:21:57 09/28/19 22 10/02/2021 CBC (INCL UDES DIFF/ PLT) platelet count 234 thous and/u L 140-40 0 normal Not Available [address], [address], 10/02/2021 17:21:57 09/28/19 22 10/02/2021 CBC (INCL UDES DIFF/ PLT) MPV 10.8 fL 7.5-12 .5 normal Not Available [address], [address], 10/02/2021 17:21:57 09/28/19 22 10/02/2021 CBC (INCL UDES DIFF/ PLT) absolute neutrophils 5121 cells /uL 1500-7 800 normal Not Available [address], [address], 10/02/2021 17:21:57 09/28/19 22 10/02/2021 CBC (INCL UDES DIFF/ PLT) absolute lymphocytes 2017 cells /uL 850-39 00 normal Not Available [address], [address], 10/02/2021 17:21:57 09/28/19 22 10/02/2021 CBC (INCL UDES DIFF/ PLT) absolute monocytes 439 cells /uL 200-95 0 normal Not Available [address], [address], 10/02/2021 17:21:57 09/28/19 22 10/02/2021 CBC (INCL UDES DIFF/ PLT) absolute eosinophils 69 cells /uL 15-500 normal Not Available [address], [address], 10/02/2021 17:21:57 09/28/19 22 10/02/2021 CBC (INCL UDES DIFF/ PLT) absolute basophils 54 cells /uL 0-200 normal Not Available [facility] [address], [address], 10/02/2021 17:21:57 09/28/19 22 10/02/2021 CBC (INCL UDES DIFF/ PLT) neutrophils 66.5 % normal Not Available [facility] [address], [address], 10/02/2021 17:21:57 09/28/19 22 10/02/2021 CBC (INCL UDES DIFF/ PLT) lymphocytes 26.2 % normal Not Available [facility] [address], [address], 10/02/2021 17:21:57 09/28/19 22 10/02/2021 CBC (INCL UDES DIFF/ PLT) monocytes 5.7 % normal Not Available [facility] [address], [address], 10/02/2021 17:21:57 09/28/19 22 10/02/2021 CBC (INCL UDES DIFF/ PLT) eosinophils 0.9 % normal Not Available [facility] [address], [address], 10/02/2021 17:21:57 09/28/19 22 10/02/2021 CBC (INCL UDES DIFF/ PLT) basophils 0.7 % normal Not Available [facility] [address], [address], 10/02/2021 17:21:57 09/28/19 22 10/02/2021 HEMOG LOBIN [...] Care in Diabe lamin(A DA). Not Available [facility] [address] [address] [place], [address], 10/02/2021 17:21:57 09/28/19 22 10/02/2021 COMPR EHENS HALI METAB OLIC PANEL glucose 81 mg/dL 65-99 normal Fasti ng refer ence inter bernice Not Available [facility] [address] [address] [place], [address], 10/02/2021 17:21:56 09/28/19 22 10/02/2021 COMPR EHENS HALI METAB OLIC PANEL urea nitrogen (BUN) 22 mg/dL 7-25 normal Not Available [facility] [address], [address], 10/02/2021 17:21:56 09/28/19 22 10/02/2021 COMPR EHENS HALI METAB OLIC PANEL creatinine 0.69 mg/dL 0.50-1 .10 normal Not Available [facility] [address], [address], 10/02/2021 17:21:56 09/28/19 22 10/02/2021 COMPR EHENS HALI METAB OLIC PANEL eGFR non-afr. thai 115 mL/mi n/1.7 3m2 > or = 60 normal Not Available [address], [address], 10/02/2021 17:21:56 09/28/19 22 10/02/2021 COMPR EHENS HALI METAB OLIC PANEL eGFR 134 mL/mi n/1.7 3m2 > or = 60 normal Not Available [address], [address], 10/02/2021 17:21:56 09/28/19 22 10/02/2021 COMPR EHENS HALI METAB OLIC PANEL BUN/creatini ne ratio not applic able (calc ) 6-22 Not Available [address], [address], 10/02/2021 17:21:56 09/28/19 22 10/02/2021 COMPR EHENS HALI METAB OLIC PANEL sodium 139 mmol/ L 135-14 6 normal Not Available [address], [address], 10/02/2021 17:21:56 09/28/19 22 10/02/2021 COMPR EHENS HALI METAB OLIC PANEL potassium 4.4 mmol/ L 3.5-5. 3 normal Not Available [address], [address], 10/02/2021 17:21:56 09/28/19 22 10/02/2021 COMPR EHENS HALI METAB OLIC PANEL chloride 107 mmol/ L 98-110 normal Not Available [address], [address], 10/02/2021 17:21:56 09/28/19 22 10/02/2021 COMPR EHENS HALI METAB OLIC PANEL carbon dioxide 25 mmol/ L 20-32 normal Not Available [address], [address], 10/02/2021 17:21:56 09/28/19 22 10/02/2021 COMPR EHENS HALI METAB OLIC PANEL calcium 9.6 mg/dL 8.6-10 .2 normal Not Available [address], [address], 10/02/2021 17:21:56 09/28/19 22 10/02/2021 COMPR EHENS HALI METAB OLIC PANEL protein, total 6.7 g/dL 6.1-8. 1 normal Not Available [address], [address], 10/02/2021 17:21:56 09/28/19 22 10/02/2021 COMPR EHENS HALI METAB OLIC PANEL albumin 4.4 g/dL 3.6-5. 1 normal Not Available [address], [address], 10/02/2021 17:21:56 09/28/19 22 10/02/2021 COMPR EHENS HALI METAB OLIC PANEL globulin 2.3 g/dL_ (calc ) 1.9-3. 7 normal Not Available [address], [address], 10/02/2021 17:21:56 09/28/19 22 10/02/2021 COMPR EHENS HALI METAB OLIC PANEL albumin/glob ulin ratio 1.9 (calc ) 1.0-2. 5 normal Not Available [address], [address], 10/02/2021 17:21:56 09/28/19 22 10/02/2021 COMPR EHENS HALI METAB OLIC PANEL bilirubin, total 0.7 mg/dL 0.2-1. 2 normal Not Available [address], [address], 10/02/2021 17:21:56 09/28/19 22 10/02/2021 COMPR EHENS HALI METAB OLIC PANEL alkaline phosphatase 56 U/L 31-125 normal Not Available [address], [address], 10/02/2021 17:21:56 09/28/19 22 10/02/2021 COMPR EHENS HALI METAB OLIC PANEL AST 20 U/L 10-30 normal Not Available [address], [address], 10/02/2021 17:21:56 09/28/19 22 10/02/2021 COMPR EHENS HALI METAB OLIC PANEL ALT 21 U/L 6-29 normal Not Available [address], [address], 10/02/2021 17:21:56 09/28/19 22 10/02/2021 LIPID PANEL WITH RATIO S cholesterol, total 146 mg/dL <200 normal Not Available [address], [address], 10/02/2021 17:21:56 09/28/19 22 10/02/2021 LIPID PANEL WITH RATIO S HDL cholesterol 60 mg/dL > or = 50 normal Not Available [address], [address], 10/02/2021 17:21:56 09/28/19 22 10/02/2021 LIPID PANEL WITH RATIO S triglyceride s 84 mg/dL <150 normal Not Available [address], [address], 10/02/2021 17:21:56 09/28/19 22 10/02/2021 LIPID PANEL [...] calcu lated using the Kathi n-Hop kins calcu neville n, which is a valid ated novel metho d ninfai ivelisse tho r accur acy than the Fried nas equat ion in the estim ation of LDL-C . Kathi diggs SS et al. ARAM. 2013; 310(1 9): 2061- 2068 (http ://ed ucati on.Qu [employer]. com/f aq/FA Q164) Not Available [facility] [address] [place], [address], 10/02/2021 17:21:56 09/28/19 22 10/02/2021 LIPID PANEL WITH RATIO S chol/HDLC ratio 2.4 (calc ) <5.0 normal Not Available [employer] [facility] [address] [place] [address], [address], 10/02/2021 17:21:56 09/28/19 22 10/02/2021 LIPID PANEL WITH RATIO S LDL/HDL ratio 1.2 (calc ) Below avera ge Risk: <2.34 [place] ge Risk: 2.35- 4.12 Moder ate Risk: 4.13- 5.56 High Risk: >5.57 Not Available [employer] [facility] [address] [place], [address], 10/02/2021 17:21:56 09/28/19 22 10/02/2021 LIPID PANEL WITH RATIO S non HDL cholesterol 86 mg/dL _(erika c) <130 normal For patie nts with diabe lamin plus 1 major ASCVD risk facto r, treat ing to a non-H DL-C goal of <100 mg/dL (LDL- C of <70 mg/dL ) is raquel sandersono n. Not Available [employer] [facility] [address] [place], [address], 10/02/2021 17:21:56 09/28/19 22 10/02/2021 TSH+F REE T4 TSH 1.04 mIU/L normal Refer ence Range > or = 20 Years 0.40- 4.50 Pregn alexi Range s First trime ster 0.26- 2.66 Secon d trime ster 0.55- 2.73 Third trime ster 0.43- 2.91 Not Available [facility] [address] [address] [place], [address], 10/02/2021 17:21:55 09/28/19 22 10/02/2021 TSH+F REE T4 T4, free 1.0 NG/dL 0.8-1. 8 normal Not Available [address] [address] [place], [address], 10/02/2021 17:21:55 09/28/1910/02/2021 INTER PRETA TION interpretati on Speci fic [...] have been deter mined by [facility]. It has not been clear ed or appro kymberly by the U.S. Food and Drug Admin istra tion. This assay has been valid ated pursu ant to the CLIA regul ation s and is used for clini erika purpo ses. Not Available [facility] [address] [address] [place], [address], 10/02/2021 17:21:54 09/28/19 22 10/02/2021 FOOD ALLER GY PROFI LE WITH REFLE XES egg white (F1) IgE <0.10 kU/L normal Not Available [facility] [address] [address] [place], [address], 10/02/2021 17:21:54 09/28/19 22 10/02/2021 FOOD ALLER GY PROFI LE WITH REFLE XES class 0 Not Available [facility] [address] [address] [place], [address], 10/02/2021 17:21:54 09/28/19 22 10/02/2021 FOOD ALLER GY PROFI LE WITH REFLE XES peanut (F13) IgE <0.10 kU/L normal Not Available [facility] [address] [address] [place], [address], 10/02/2021 17:21:54 09/28/19 22 10/02/2021 FOOD ALLER GY PROFI LE WITH REFLE XES class 0 Not Available [facility] [address] [address] [place], [address], 10/02/2021 17:21:54 09/28/19 22 10/02/2021 FOOD ALLER GY PROFI LE WITH REFLE XES wheat (F4) IgE <0.10 kU/L normal Not Available [facility] [address] [address] [place], [address], 10/02/2021 17:21:54 09/28/19 22 10/02/2021 FOOD ALLER GY PROFI LE WITH REFLE XES class 0 Not Available [facility] [address] [address] [place], [address], 10/02/2021 17:21:54 09/28/19 22 10/02/2021 FOOD ALLER GY PROFI LE WITH REFLE XES walnut (F256) IgE <0.10 kU/L normal Not Available [facility] [address], [address], 10/02/2021 17:21:54 09/28/19 22 10/02/2021 FOOD ALLER GY PROFI LE WITH REFLE XES class 0 Not Available [facility] [address], [address], 10/02/2021 17:21:54 09/28/19 22 10/02/2021 FOOD ALLER GY PROFI LE WITH REFLE XES codfish (F3) IgE <0.10 kU/L normal Not Available [facility] [address], [address], 10/02/2021 17:21:54 09/28/19 22 10/02/2021 FOOD ALLER GY PROFI LE WITH REFLE XES class 0 Not Available [address], [address], 10/02/2021 17:21:54 09/28/19 22 10/02/2021 FOOD ALLER GY PROFI LE WITH REFLE XES cow's milk (F2) IgE <0.10 kU/L normal Not Available [facility] [address], [address], 10/02/2021 17:21:54 09/28/19 22 10/02/2021 FOOD ALLER GY PROFI LE WITH REFLE XES class 0 Not Available [facility] [address], [address], 10/02/2021 17:21:54 09/28/19 22 10/02/2021 FOOD ALLER GY PROFI LE WITH REFLE XES soybean (F14) IgE <0.10 kU/L normal Not Available [facility] [place] [address] [address], [place], [address], 10/02/2021 17:21:54 09/28/19 22 10/02/2021 FOOD ALLER GY PROFI LE WITH REFLE XES class 0 Not Available [address], [address], 10/02/2021 17:21:54 09/28/19 22 10/02/2021 FOOD ALLER GY PROFI LE WITH REFLE XES shrimp (F24) IgE <0.10 kU/L normal Not Available [address], [address], 10/02/2021 17:21:54 09/28/19 22 10/02/2021 FOOD ALLER GY PROFI LE WITH REFLE XES class 0 Not Available [address], [address], 10/02/2021 17:21:54 09/28/19 22 10/02/2021 FOOD ALLER GY PROFI LE WITH REFLE XES scallop (F338) IgE <0.10 kU/L normal Not Available [address], [address], 10/02/2021 17:21:54 09/28/19 22 10/02/2021 FOOD ALLER GY PROFI LE WITH REFLE XES class 0 Not Available [address], [address], 10/02/2021 17:21:54 09/28/19 22 10/02/2021 FOOD ALLER GY PROFI LE WITH REFLE XES sesame seed (F10) IgE <0.10 kU/L normal Not Available [address], [address], 10/02/2021 17:21:54 09/28/19 22 10/02/2021 FOOD ALLER GY PROFI LE WITH REFLE XES class 0 Not Available [address], [address], 10/02/2021 17:21:54 09/28/19 22 10/02/2021 FOOD ALLER GY PROFI LE WITH REFLE XES hazelnut (F17) IgE <0.10 kU/L normal Not Available [address], [address], 10/02/2021 17:21:54 09/28/19 22 10/02/2021 FOOD ALLER GY PROFI LE WITH REFLE XES class 0 Not Available [address], [address], 10/02/2021 17:21:54 09/28/19 22 10/02/2021 FOOD ALLER GY PROFI LE WITH REFLE XES cashew nut (F202) IgE <0.10 kU/L normal Not Available [address], [address], 10/02/2021 17:21:54 09/28/19 22 10/02/2021 FOOD ALLER GY PROFI LE WITH REFLE XES class 0 Not Available [address], [address], 10/02/2021 17:21:54 09/28/19 22 10/02/2021 FOOD ALLER GY PROFI LE WITH REFLE XES almond (F20) IgE <0.10 kU/L normal Not Available [address], [address], 10/02/2021 17:21:54 09/28/19 22 10/02/2021 FOOD ALLER GY PROFI LE WITH REFLE XES class 0 Not Available [facility] [address], [address], 10/02/2021 17:21:54 09/28/19 22 10/02/2021 FOOD ALLER GY PROFI LE WITH REFLE XES salmon (F41) IgE <0.10 kU/L normal Not Available [address], [address], 10/02/2021 17:21:54 09/28/19 22 10/02/2021 FOOD ALLER GY PROFI LE WITH REFLE XES class 0 Not Available [facility] [address], [address], 10/02/2021 17:21:54 09/28/19 22 10/02/2021 FOOD ALLER GY PROFI LE WITH REFLE XES tuna (F40) IgE <0.10 kU/L normal Not Available [address], [address], 10/02/2021 17:21:54 09/28/19 22 10/02/2021 FOOD ALLER GY PROFI LE WITH REFLE XES class 0 Not Available [address], [address], 10/02/2021 17:21:54 09/28/19 22 10/02/2021 SHAYE C [...] ce of DQ2 or DQ8. Not Available [address], [address], 10/02/2021 17:21:53 09/28/19 22 10/02/2021 SHAYE C DISEA SE COMPR EHENS HALI PANEL tissue transglutami nase Ab, IgA <1.0 U/mL normal Value Inter preta tion ----- ----- ----- ---- <15.0 Antib stephanie not detec malaika > or = 15.0 Antib stephanie detec malaika Not Available [facility] [address] [place], [address], 10/02/2021 17:21:53 09/28/19 22 10/02/2021 SHAYE C DISEA SE COMPR EHENS HALI PANEL immunoglobul in A 269 mg/dL 47-310 normal Not Available [facility] [address] [place], [address], 10/02/2021 17:21:53 10/12/19 22 10/11/2021 urina lysis , dipst ick Leukocytes (reference range: negative ninfa/ l) Negati ve Not Available [facility] [place] [address], [place], [address], 10/11/2021 14:37:11 10/12/19 22 10/11/2021 urina lysis , dipst ick Nitrite (reference rage: negative mg/dl) negati ve Not Available [facility] [place] [address], [place], [address], 10/11/2021 14:37:11 10/12/19 22 10/11/2021 urina lysis , dipst ick Urobilinogen (reference range: 0.2-1 mg/dl) 0.2 Not Available [facility] [place] [address], [place], [address], 10/11/2021 14:37:11 10/12/19 22 10/11/2021 urina lysis , dipst ick Protein (reference range: negative mg/dl) Negati ve Not Available [facility] [place] [address], [place], [address], 10/11/2021 14:37:11 10/12/19 22 10/11/2021 urina lysis , dipst ick pH (reference range: 5-7) 5.5 Not Available [facility] [place] [address], [place], [address], 10/11/2021 14:37:11 10/12/19 22 10/11/2021 urina lysis , dipst ick Blood (reference range: negative Gage/ l) Non-He molyze d: Trace Not Available [facility] [place] [address], [place], [address], 10/11/2021 14:37:11 10/12/19 22 10/11/2021 urina lysis , dipst ick Specific Miranda (reference range: 1.005-1.030) 1.020 Not Available [facility] [place] [address], [place], [address], 10/11/2021 14:37:11 10/12/19 22 10/11/2021 urina lysis , dipst ick Ketone (reference range: negative mg/dl) Negati ve Not Available [facility] [address] [facility] [place] [address], [place], [address], 10/11/2021 14:37:11 10/12/19 22 10/11/2021 urina lysis , dipst ick Bilirubin (reference range: negative mg/dl) Negati ve Not Available [facility] [address] [facility] [place] [address], [place], [address], 10/11/2021 14:37:11 10/12/19 22 10/11/2021 urina lysis , dipst ick Glucose (reference range: negative mg/dl) Negati ve Not Available [facility] [place] [facility] [place] [address], [place], [address], 10/11/2021 14:37:11 10/12/19 22 10/11/2021 urina lysis , dipst ick Appearance Clear Not Available [facility] [place] [facility] [place] [address], [place], [address], 10/11/2021 14:37:11 10/12/19 22 10/11/2021 urina lysis , dipst ick Color Yellow Not Available [facility] [place] [address], [place], [address], 10/11/2021 14:37:11 10/16/19 23 10/16/2022 TSH+F REE T4 TSH 0.95 mIU/L normal Refer ence Range > or = 20 Years 0.40- 4.50 Pregn alexi Range s First trime ster 0.26- 2.66 Secon d trime ster 0.55- 2.73 Third trime ster 0.43- 2.91 Not Available [facility] [employer] [facility] [employer] [address] [address] [place], [address], 10/16/2022 07:43:28 10/16/1910/16/2022 TSH+F REE T4 T4, free 1.0 NG/dL 0.8-1. 8 normal Not Available [facility] [address] [address] [place], [address], 10/16/2022 07:43:28 10/16/19 23 10/16/2022 LIPID PANEL WITH RATIO S cholesterol, total 139 mg/dL <200 normal Not Available [facility] [employer] [facility] [address] [address] [place], [address], 10/16/2022 07:43:30 10/16/19 23 10/16/2022 LIPID PANEL WITH RATIO S HDL cholesterol 54 mg/dL > or = 50 normal Not Available [employer] [facility] [address] [place], [address], 10/16/2022 07:43:30 10/16/19 23 10/16/2022 LIPID PANEL WITH RATIO S triglyceride s 108 mg/dL <150 normal Not Available [facility] [employer] [facility] [address] [place], [address], 10/16/2022 07:43:30 10/16/1910/16/2022 LIPID PANEL WITH RATIO S LDL-choleste rol 66 mg/dL _(erika c) normal Refer ence range : <100 Max able range <100 mg/dL for prima ry preve ntion ; <70 mg/dL for patie nts with CHD or diabe tic patie nts with > or = 2 CHD risk facto rs. LDL-C is now calcu lated using the Kathi diggs-Hop kins calcu neville n, which is a valid ated novel anao loretta deleonte r accur acy than the Fried nas equat ion in the estim ation of LDL-C . Kathi diggs SS et al. ARAM. 2013; 310(1 9): 2061- 2068 (http ://ed ucati on.Qu [place]. com/f aq/FA Q164) Not Available [employer] [address] [address] [place], [address], 10/16/2022 07:43:30 10/16/1910/16/2022 LIPID PANEL WITH RATIO S chol/HDLC ratio 2.6 (calc ) <5.0 normal Not Available [employer] [facility] [address] [place], [address], 10/16/2022 07:43:30 10/16/1910/16/2022 LIPID PANEL WITH RATIO S LDL/HDL ratio 1.2 (calc ) Below avera ge Risk: <2.34 [place] ge Risk: 2.35- 4.12 Moder ate Risk: 4.13- 5.56 High Risk: >5.57 Not Available [facility] [address] [address] [place], [address], 10/16/2022 07:43:30 10/16/1910/16/2022 LIPID PANEL WITH RATIO S non HDL cholesterol 85 mg/dL _(erika c) <130 normal For patie nts with diabe lamin plus 1 major ASCVD risk facto r, treat ing to a non-H DL-C goal of <100 mg/dL (LDL- C of <70 mg/dL ) is consi dered a thera peuti c optio n. Not Available [address] [address] [place], [address], 10/16/2022 07:43:30 10/16/19 23 10/16/2022 COMPR EHENS HALI METAB OLIC PANEL glucose 90 mg/dL 65-99 normal Fasti ng refer ence inter bernice Not Available [address] [address] [address], [place], [address], 10/16/2022 07:43:30 10/16/19 23 10/16/2022 COMPR EHENS HALI METAB OLIC PANEL urea nitrogen (BUN) 16 mg/dL 7-25 normal Not Available [address] [address] [place], [address], 10/16/2022 07:43:30 10/16/19 23 10/16/2022 COMPR EHENS HALI METAB OLIC PANEL creatinine 0.67 mg/dL 0.50-0 .97 normal Not Available [facility] [place] [address] [address] [place], [address], 10/16/2022 07:43:30 10/16/1910/16/2022 COMPR EHENS HALI METAB OLIC PANEL eGFR 118 mL/mi n/1.7 3m2 > or = 60 normal The eGFR is based on the CKD-E PI 2020 equat ion. To calcu late the new eGFR from a previ ous Creat inine or Cysta tin C resul t, go to https ://rambo atwood.grace young.radha suresh/pr ofess ional s/ kdoqi /gfr% 5Fcal culat or Not Available [address], [address], 10/16/2022 07:43:30 10/16/19 23 10/16/2022 COMPR EHENS HALI METAB OLIC PANEL BUN/creatini ne ratio NOT APPLIC ABLE (calc ) 6-22 Not Available [address], [address], 10/16/2022 07:43:30 10/16/19 23 10/16/2022 COMPR EHENS HALI METAB OLIC PANEL sodium 139 mmol/ L 135-14 6 normal Not Available [address], [address], 10/16/2022 07:43:30 10/16/19 23 10/16/2022 COMPR EHENS HALI METAB OLIC PANEL potassium 4.3 mmol/ L 3.5-5. 3 normal Not Available [address], [address], 10/16/2022 07:43:30 10/16/19 23 10/16/2022 COMPR EHENS HALI METAB OLIC PANEL chloride 107 mmol/ L 98-110 normal Not Available [address], [address], 10/16/2022 07:43:30 10/16/19 23 10/16/2022 COMPR EHENS HALI METAB OLIC PANEL carbon dioxide 27 mmol/ L 20-32 normal Not Available [address], [address], 10/16/2022 07:43:30 10/16/19 23 10/16/2022 COMPR EHENS HALI METAB OLIC PANEL calcium 9.4 mg/dL 8.6-10 .2 normal Not Available [address] [place], [address], 10/16/2022 07:43:30 10/16/19 23 10/16/2022 COMPR EHENS HALI METAB OLIC PANEL protein, total 6.7 g/dL 6.1-8. 1 normal Not Available [address] [address] [place], [address], 10/16/2022 07:43:30 10/16/19 23 10/16/2022 COMPR EHENS HALI METAB OLIC PANEL albumin 4.3 g/dL 3.6-5. 1 normal Not Available [address], [address], 10/16/2022 07:43:30 10/16/19 23 10/16/2022 COMPR EHENS HALI METAB OLIC PANEL globulin 2.4 g/dL_ (calc ) 1.9-3. 7 normal Not Available [address], [address], 10/16/2022 07:43:30 10/16/19 23 10/16/2022 COMPR EHENS HALI METAB OLIC PANEL albumin/glob ulin ratio 1.8 (calc ) 1.0-2. 5 normal Not Available [address], [address], 10/16/2022 07:43:30 10/16/19 23 10/16/2022 COMPR EHENS HALI METAB OLIC PANEL bilirubin, total 0.5 mg/dL 0.2-1. 2 normal Not Available [address], [address], 10/16/2022 07:43:30 10/16/19 23 10/16/2022 COMPR EHENS HALI METAB OLIC PANEL alkaline phosphatase 46 U/L 31-125 normal Not Available [address] [address] [place], [address], 10/16/2022 07:43:30 10/16/19 23 10/16/2022 COMPR EHENS HALI METAB OLIC PANEL AST 17 U/L 10-30 normal Not Available [facility] [address] [address] [place], [address], 10/16/2022 07:43:30 10/16/19 23 10/16/2022 COMPR EHENS HALI METAB OLIC PANEL ALT 15 U/L 6-29 normal Not Available [facility] [address] [address] [place], [address], 10/16/2022 07:43:30 10/16/19 23 10/16/2022 HEMOG LOBIN [...] lamin. Curre ntly, no conse nsus exist akash oviedo use of hemog lobin A1c for [...] Care in Diabe lamin(A DA). Not Available [facility] [address] [address] [place], [address], 10/16/2022 07:43:31 10/16/19 23 10/16/2022 CBC (INCL UDES DIFF/ PLT) white blood cell count 4.9 thous and/u L 3.8-10 .8 normal Not Available [facility] [address], [address], 10/16/2022 07:43:32 10/16/1910/16/2022 CBC (INCL UDES DIFF/ PLT) red blood cell count 4.43 liborio on/uL 3.80-5 .10 normal Not Available [facility] [address], [address], 10/16/2022 07:43:32 10/16/19 23 10/16/2022 CBC (INCL UDES DIFF/ PLT) hemoglobin 13.5 g/dL 11.7-1 5.5 normal Not Available [facility] [address], [address], 10/16/2022 07:43:32 10/16/1910/16/2022 CBC (INCL UDES DIFF/ PLT) hematocrit 40.3 % 35.0-4 5.0 normal Not Available [address], [address], 10/16/2022 07:43:32 10/16/1910/16/2022 CBC (INCL UDES DIFF/ PLT) MCV 91.0 fL 80.0-1 00.0 normal Not Available [address], [address], 10/16/2022 07:43:32 10/16/1910/16/2022 CBC (INCL UDES DIFF/ PLT) MCH 30.5 pg 27.0-3 3.0 normal Not Available [facility] [address], [address], 10/16/2022 07:43:32 10/16/1910/16/2022 CBC (INCL UDES DIFF/ PLT) MCHC 33.5 g/dL 32.0-3 6.0 normal Not Available [facility] [address], [address], 10/16/2022 07:43:32 10/16/19 23 10/16/2022 CBC (INCL UDES DIFF/ PLT) RDW 12.2 % 11.0-1 5.0 normal Not Available [address], [address], 10/16/2022 07:43:32 10/16/19 23 10/16/2022 CBC (INCL UDES DIFF/ PLT) platelet count 206 thous and/u L 140-40 0 normal Not Available [address], [address], 10/16/2022 07:43:32 10/16/19 23 10/16/2022 CBC (INCL UDES DIFF/ PLT) MPV 10.5 fL 7.5-12 .5 normal Not Available [address], [address], 10/16/2022 07:43:32 10/16/19 23 10/16/2022 CBC (INCL UDES DIFF/ PLT) absolute neutrophils 2960 cells /uL 1500-7 800 normal Not Available [address], [address], 10/16/2022 07:43:32 10/16/19 23 10/16/2022 CBC (INCL UDES DIFF/ PLT) absolute lymphocytes 1504 cells /uL 850-39 00 normal Not Available [address], [address], 10/16/2022 07:43:32 10/16/19 23 10/16/2022 CBC (INCL UDES DIFF/ PLT) absolute monocytes 328 cells /uL 200-95 0 normal Not Available [address], [address], 10/16/2022 07:43:32 10/16/19 23 10/16/2022 CBC (INCL UDES DIFF/ PLT) absolute eosinophils 69 cells /uL 15-500 normal Not Available [facility] [address], [address], 10/16/2022 07:43:32 10/16/19 23 10/16/2022 CBC (INCL UDES DIFF/ PLT) absolute basophils 39 cells /uL 0-200 normal Not Available [facility] [address], [address], 10/16/2022 07:43:32 10/16/19 23 10/16/2022 CBC (INCL UDES DIFF/ PLT) neutrophils 60.4 % normal Not Available [facility] [address], [address], 10/16/2022 07:43:32 10/16/19 23 10/16/2022 CBC (INCL UDES DIFF/ PLT) lymphocytes 30.7 % normal Not Available [facility] [address], [address], 10/16/2022 07:43:32 10/16/19 23 10/16/2022 CBC (INCL UDES DIFF/ PLT) monocytes 6.7 % normal Not Available [facility] [address], [address], 10/16/2022 07:43:32 10/16/19 23 10/16/2022 CBC (INCL UDES DIFF/ PLT) eosinophils 1.4 % normal Not Available [facility] [address], [address], 10/16/2022 07:43:32 10/16/19 23 10/16/2022 CBC (INCL UDES DIFF/ PLT) basophils 0.8 % normal Not Available [facility] [address], [address], 10/16/2022 07:43:32 10/15/19 22 10/11/2021 XR, kidne y + urete r + bladd er No observ ation record ed. [id number], [place], [address], 07/02/2022 06:52:27 Result Notes None recorded. Problems Name Problem SNOMED Code Status Onset Date Resolution Date Notes Provider Name and Address Organization Details Recorded Time Irritable bowel syndrome 38775651 Active Not Available [facility] 3 06:43:38 Acne 30999428 Active Not Available [facility] 3 06:43:38 Plantar wart of right foot 07854559416 113252 Active Not Available [facility] 3 06:43:38 Hyperemes is gravidaru m 07824672 Completed Not Available [facility] 3 06:43:38 Anterior chest wall pain 420205965 Active Not Available [facility] 3 06:43:38 Contusion of coccyx 660048507 Active Not Available [facility] 3 06:43:38 Thoracic back pain 707789539 Active Not Available [facility] 3 06:43:38 Cramping pain 561842872 Active Not Available [facility] 3 06:43:39 Vaginal discharge problem 174159130 Completed Not Available [facility] 3 06:43:39 Chest pain 80454929 Active Not Available [facility] 3 06:43:39 Bronchiti s 74648088 Completed Not Available [facility] 3 06:43:39 Pain in coccyx 89000820 Active Not Available [facility] 3 06:43:39 Uterine size for dates discrepan cy 647404942 Completed Not Available [facility] 3 06:43:39 Anxiety 67786210 Active Not Available [facility] 3 06:43:40 Female urinary stress incontine nce 81216609 Active Not Available [facility] 3 06:43:40 Irregular periods 53634624 Completed Not Available [facility] 3 06:43:40 Fatigue 53837504 Active Not Available [facility] 3 06:43:41 Pain in limb 38407231 Active Not Available [facility] 3 06:43:41 64582423 Completed 201711/22/2018 Not Available [facility] 3 06:43:40 Premenstr ual dysphoric disorder 417988 Active 2021 Not Available [facility] 3 06:43:40 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 Not Available [facility] 3 06:43:37 Right flank pain 668799319 Active 2021 Not Available [facility] 3 06:43:38 Right upper quadrant pain 474706914 Active 2021 Not Available [facility] 3 06:43:39 Urinary tract infectiou s disease 33890410 Active 2021 Not Available [facility] 3 06:43:40 Kidney stone 85916944 Active 2021 Not Available [facility] 3 06:43:41 Headache 17371674 Active 2021 Not Available [facility] 3 06:43:38 Sore throat 115350143 Active 2022 Selene Montalvo, KENDY null, [place] [employer] [facility] [employer] 3 09:12:10 Postviral cough 895866123 Active 2022 DELFINO Guallpa [address], [address], [place], [address] , [employer] [facility] [employer] [facility] 3 11:53:22 Bee sting 468230028 Active 2022 DELFINO Guallpa [address], [address], [place], [address] , [employer] [facility] [facility] 3 13:23:12 Lesion of scalp 30019720795 0 Active 2022 DELFINO Guallpa [address], [address], [place], [address] , [employer] [facility] [facility] 3 17:00:17 Generaliz ed anxiety disorder 62658868 Active 2022 DELFINO Guallpa [address], [address], [place], [address] , [place] [facility] 3 22:13:04 Problem Notes None recorded. Procedures Surgical History Date Name Laterality Status Provider Name and Address Organization Details Recorded Time 12/23/19 19 total excision of bilateral fallopian tubes completed Not Available [facility] 07/02/2022 06:39:10 03/09/20 18 Cholecystectomy completed Not Available [facility] 07/02/2022 06:39:10 05/06/19 18 Date of Last Pap Smear completed Not Available [facility] 07/02/2022 06:39:09 01/16/20 17 FISHERIES DIRECTOR Procedure completed Not Available [facility] 07/02/2022 06:39:10 06/22/19 15 FISHERIES DIRECTOR Procedure completed Not Available [facility] 07/02/2022 06:39:10 Imaging Results None recorded. Procedure Notes None recorded. Medical Equipment None Reported. Allergies Allergen ID Allergen Name Allergen Category Reaction Reaction Severity Criticality Documentation Date Start Date Code Code System Note Provider Name and Address Organization Details Recorded Time 98923 acetamino phen / hydrocodo ne medicatio n itching moderate Not available 07/02/2022 69670 2 RxNorm Not Available [facility] 3 06:52:20 78992 acetamino phen / hydrocodo ne medicatio n itching Not available Not available 07/02/2022 26359 2 RxNorm Not Available [facility] 3 06:52:21 45013 Compazine medicatio n Not available Not available Not available 07/02/2022 66953 6 RxNorm tonic jaw/n yusef Not Available [facility] 3 06:52:21 Medications Name Sig Start Date [...] lable Vitals Date Recorded Body height Body temperature Body mass index (BMI) Body weight Heart rate Oxygen saturation Oxygen saturation in Arterial blood by Pulse oximetry Systolic And Diastolic Provider Name and Address Organization Details Last Updated DateTime 3 167.64 cm 97.1 [degF] 26.8 kg/m2 79187.3 3 g 104 /min 98 % 98 % 112/70 mm[Hg] Jeanna Willis RN [facility] [employer] [facility] 3 11:41:14 Date Recorded Body mass index (BMI) Body height Oxygen saturation Oxygen saturation in Arterial blood by Pulse oximetry Heart rate Respiratory rate Body temperature Body weight Systolic And Diastolic Provider Name and Address Organization Details Last Updated DateTime 2 27.3 kg/m2 167.64 cm 95 % 95 % 104 /min 16 /min 97.6 [degF] 62189.1 1 g 110/70 mm[Hg] Not Available [facility] 3 06:39:38 Date Recorded Body height Body temperature Body mass index (BMI) Body weight Respiratory rate Oxygen saturation Oxygen saturation in Arterial blood by Pulse oximetry Heart rate Systolic And Diastolic Provider Name and Address Organization Details Last Updated DateTime 3 167.64 cm 98 [degF] 27.1 kg/m2 81624.5 2 g 16 /min 98 % 98 % 89 /min 118/78 mm[Hg] KENDY [place] [facility] [employer] [facility] 3 10:49:53 Date Recorded Body mass index (BMI) Body height Oxygen saturation Oxygen saturation in Arterial blood by Pulse oximetry Heart rate Respiratory rate Body temperature Body weight Systolic And Diastolic Provider Name and Address Organization Details Last Updated DateTime 2 27.1 kg/m2 167.64 cm 99 % 99 % 93 /min 16 /min 97.4 [degF] 07282.5 2 g 112/66 mm[Hg] Not Available [facility] 3 06:39:39 Date Recorded Body mass index (BMI) Body height Oxygen saturation Oxygen saturation in Arterial blood by Pulse oximetry Heart rate Respiratory rate Body temperature Body weight Systolic And Diastolic Provider Name and Address Organization Details Last Updated DateTime 2 26.8 kg/m2 167.64 cm 97 % 97 % 104 /min 16 /min 97.3 [degF] 61122.6 1 g 120/80 mm[Hg] Not Available [facility] 3 06:39:39 Social History Question Answer Notes LastModified by Organizat ion Details LastModified Time Tobacco Smoking Status Former Smoker quit 2011 Not Available [facility] 07/02/2022 06:39:02 What Is Your Level Of Caffeine Consumption? Moderate [id number] Information not available 07/02/2022 How Much Tobacco Do You Chew? None MIGRATION.[id number] 5201 Information not available 07/02/2022 In The 14 Days Before Symptom Onset, Have You Had Close Contact With A Laboratory-confir med COVID-19 While That Case Was Ill? No MIGRATION.[id number] 3249 Information not available 07/02/2022 In The 14 Days Before Symptom Onset, Have You Had Close Contact With A Person Who Is Under Investigation For COVID-19 While That Person Was Ill? No MIGRATION.[id number] 5057 Information not available 07/02/2022 What Type Of Diet Are You Following? REGULAR MIGRATION.369613 2278 Information not available 07/02/2022 Which Illicit Or Recreational Drugs Have You Used? None MIGRATION.278781 9304 Information not available 07/02/2022 Have There Been Any Changes To Your Family Or Social Situation? No MIGRATION.573978 5993 Information not available 07/02/2022 Do You Use Insect Repellent Routinely? No MIGRATION.495590 5536 Information not available 07/02/2022 What Is Your Relationship Status? Single MIGRATION.458921 6989 Information not available 07/02/2022 Do You Use Your Seat Belt Or Car Seat Routinely? Yes MIGRATION.381532 6274 Information not available 07/02/2022 Do You Have Smoke And Carbon Monoxide Detectors In Your Home? Yes MIGRATION.066891 2923 Information not available 07/02/2022 At What Age Did You Start Smoking Tobacco? 15 MIGRATION.532464 0024 Information not available 07/02/2022 How Much Tobacco Do You Smoke? No MIGRATION.496974 9312 Information not available 07/02/2022 Do You Use Sunscreen Routinely? Yes MIGRATION.957022 4698 Information not available 07/02/2022 How Many Years Have You Smoked Tobacco? 4 MIGRATION.529077 4916 Information not available 07/02/2022 Have You Recently Traveled Abroad? No MIGRATION.247209 7736 Information not available 07/02/2022 Do You Have Any Dietary Restrictions? No MIGRATION.551027 9287 Information not available 07/02/2022 Sex: Unknown Functional Status Question Answer Note LastModified by Organizat ion Details LastModified Time Do you use any illicit or recreational drugs? No MIGRATION.[id number] 8552 Information not available 07/02/2022 Do you or have you ever used any other forms of tobacco or nicotine? No MIGRATION.322644 4188 Information not available 07/02/2022 What is your level of alcohol consumption? None MIGRATION.821084 4887 Information not available 07/02/2022 Do you or have you ever used smokeless tobacco? Never used smokeless tobacco MIGRATION.357643 3239 Information not available 07/02/2022 Are you currently employed? 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 Never used electronic cigarettes MIGRATION.951329 0690 Information not available 07/02/2022 What is your exercise level? Moderate MIGRATION.292341 6207 Information not available 07/02/2022 Mental Status None recorded. Family History Relationship Description Onset Age of this Age Resolved Age Notes LastModified by Organization Details LastModified Time Maternal Grandmother Diabetes mellitus MIGRATION.434 [id number] Not available 07/02/2022 06:39:11 Maternal Grandmother Hypertensive disorder MIGRATION.556 [id number] Not available 07/02/2022 06:39:11 Paternal Grandmother Malignant neoplasm of breast MIGRATION.002 [id number] Not available 07/02/2022 06:39:11 Father Pulmonary embolism MIGRATION.233 [id number] Not available 07/02/2022 06:39:11 Medical History Condition [...] toxoid, unspecified formulation 5 completed Not Available [facility] 07/02/2022 06:52:03 TST, unspecified formulation 4 completed Not Available [facility] 07/02/2022 06:52:04 COVID-19, mRNA, LNP-S, PF, 30 mcg/0.3 mL dose 1 completed Not Available [facility] 07/02/2022 06:52:04 COVID-19, mRNA, LNP-S, PF, 30 mcg/0.3 mL dose 1 completed Not Available [facility] 07/02/2022 06:52:04 Influenza, split virus, quadrivalent, PF 9 completed Not Available [facility] 07/02/2022 06:52:05 Tdap 9 completed Not Available [facility] 07/02/2022 06:52:05 Tdap 4 completed Not Available [facility] 07/02/2022 06:52:05 Past Encounters Encounter ID Performer Location Encounter Start Date Encounter Closed Date Diagnosis/Indication Diagnosis SNOMED-CT Code Diagnosis ICD10 Code Diagnosis IMO Codes Diagnosis Note [id number] [facility] ic_[place] _ATHENA_M IGRATION_ DEFAULT_1 _1 , 08/27/2020 00:00:00 08/27/2020 12:01:27 [id number] DELFINO Guallpa [facility] [place] [address] [place] [address] 09/06/2020 00:00:00 09/27/2020 01:23:28 [id number] Fausto Palacio MD [facility] [place] [address] [place] [address] 09/25/2021 00:00:00 09/25/2021 11:53:07 [id number] Fausto Palacio MD [facility] [place] [address] [place] [address] 10/11/2021 00:00:00 10/21/2021 12:46:50 [id number] DELFINO Guallpa [facility] [place] [address] [place] [address] 01/09/2022 00:00:00 01/30/2022 23:56:35 [id number] DELFINO Guallpa [facility] [place] [address] [place] [address] 07/25/2022 11:34:47 07/25/2022 11:56:36 Postviral cough 718154492 R05.3 Rx for prednisone 50mg daily x 5 days, and Virtussin AC as directed [id number] DELFINO Guallpa [facility] [place] [address] [place] [address] 09/25/2022 10:44:59 09/25/2022 11:13:55 Adult health examination 622868080 Z00.00 well exam completed Premenstru al dysphoric disorder 909394 F32.81 pt is off medication and feeling stable. no c/o Cholesterol screening 27 1217023 Z13.220 fasting lipids due Diabetes m ellitus screening 548270453 Z13.1 a1c screening due Thyroid di sorder screening 216340267 Z13.29 thyroid labs due Body mass index 25-29 - overweight 485503973 Z68.27 start wegovy trial. Health Concerns Section Related Observation LastModified by Organization Detai ls LastModified Time None Recorded Concern Status LastModified by Organization Details LastModified Time None Recorded Advance Directives Directive None Recorded Payers Insurance Date Sequence Insurance Name Policy Number Policy Velazquez Covered Member ID Velazquez Member ID Guarantor Name 09/30/2022 1 [id number] Flakita Bridges [id number] Flakita Bridges Notes Date Note Type Note Provider Name and Address Organization Details Recorded Time 07/26/19 23 text/htm l CoughReported by PatientHPIFor quality, patient reportsharshandtight. For associated symptoms, patient reportsagitated. For severity, patient reportsmoderate. For duration, patient reportsconstantandsymptoms lasting over 2 weeks. For timing, patient reportsgradual. For context, patient reportsnon-smoker. DELFINO Guallpa [address] [facility] [address], [place], [address], [facility] [employer] 07/31/2022 15:33:05 09/26/19 23 text/htm l Anxiety/DepressionReported by PatientHPIFor severity, patient reportsinterference with household activities,interference with sleep, andinterference with workbut reportsdenies suicidal ideationsandable to maintain relationships. For associated symptoms, patient reportsanxiety,sleep disturbances, andpalpitationsbut reportsdenies homicidal ideations,no significant weight gain,no significant weight loss,no visual/auditory hallucinations,no delusions, andno shortness of breath. For duration, patient reportssymptoms lasting over 2 weeks. For onset/timing, patient reportsstill present. For context, patient reportsno major life stressors. For quality, (doesnt matter time of day.). For modifying factors, (off her medication). Wellness DELFINO Guallpa [address] [facility] [facility] [address], [place], [address], [facility] 09/28/2022 15:05:18 OBGyn Episode No OBEpisode recorded.
== END 2025-03-06 14:30 | disposition home or self-care (01) ==
PROVIDERS: Emergency Provider Nurse Practitioner Family; PCP Physician Assistant
DX: M79.652 Pain in left thigh (principal); Z87.891 Personal history of nicotine dependence; E55.9 Vitamin D deficiency, unspecified
CPT/HCPCS: 73552; 99213; G0463

== ENCOUNTER 2025-03-09 13:16 | Outpatient (CLI) | payer OTHER, SELFPAY ==
--- NOTE | ~2025-03-09 | XR_ITS ---
XR lumbar spine 2-3V Indication: Lumbar radiculopathy Comparison: None Findings: The vertebral heights are intact. No fracture or subluxation. The disc heights are intact. Soft tissues unremarkable Impression: No acute abnormality. Reviewed, dictated and finalized at location P. RANCE EXECUTIVE Impression: No acute abnormality.
== END 2025-03-09 13:17 | disposition home or self-care (01) ==
LOC: MICIMG 13:18
PROVIDERS: PCP Physician Assistant; Visit Provider Physician Assistant
DX: M54.16 Radiculopathy, lumbar region (principal)
CPT/HCPCS: 72100